=== PATIENT | male | born 1930 | race Caucasian/White ===

== ENCOUNTER 2016-12-19 13:35 | Inpatient (IN) | payer MEDICARE ==
[2016-12-19] VITALS (7 sets, daily range): BP systolic 92–119; BP diastolic 52–75; PULSE 53–92; RESP 16–18; O2SAT 96–99
[~2016-12-19] VITALS: Ht 175.3 cm; Wt 62.0 kg
[~2016-12-19 13:35] MED LIST: ACET1TAB42 PO; LISI40TA PO; METO50TA3 PO; NITR0.4T SL; PRAV40TA PO; SPIR25TA3 PO; TORS20TA3 PO; WARF5TAB7 PO
--- NOTE | 2016-12-19 13:50 | ED.REPORT ---
HPI-Trauma Multiple Date of Service Dec 19, 2016 ED Provider: Chin Joshi MD The patient is an 86 year old male with history of previous CVA, hyperlipidemia , atrial fibrillation on Coumadin, congestive heart failure, and aortic stenosis , who was brought to the emergency department by EMS after he had a ground level fall prior to arrival. The patient tripped on a chair, fell onto the carpeted floor, and injured his right hip. He did not hit his head or lose consciousness. He has not vomited since the fall and is acting normally. He denies any other injuries. Nursing Notes Stated Complaint: GLF Chief Complaint: Extremity Trauma Nursing Notes Reviewed: Yes Allergies: Coded Allergies: No Known Allergies (Verified Allergy, Unknown, 12/19/16) Scheduled Lisinopril (Lisinopril) 20 Mg Tablet 20 MG PO DAILY Metoprolol Tartrate (Metoprolol Tartrate) 50 Mg Tablet 50 MG PO DAILY Confirmed takes 1x/day per RX bottle Pravastatin (Pravastatin) 40 Mg Tablet 40 MG PO DAILY Takes in AM Spironolactone (Spironolactone) 25 Mg Tablet 12.5 MG PO DAILY 1/2 tablet daily Torsemide (Torsemide) 20 Mg Tablet 10 MG PO DAILY 1/2 tablet daily Warfarin Sodium (Warfarin Sodium) 5 Mg Tablet 5 MG PO DAILY 1 tablet daily Scheduled PRN Nitroglycerin SL (Nitrostat) 0.4 Mg Tab.subl 0.4 MG SL Q5MIN PRN PRN For Chest Pain IF SBP > 90 General Time Seen by Provider: 14:33 Chief Complaint Extremity pain/injury Hx Obtained From: Patient, Daughter, EMS Arrived By: Ambulance Onset Occurred: Just prior to arrival Symptom Duration: Since onset Progression Since Onset: Constant Caused by: Fall while (walking) Context: Occurred at: Home Location: : Hip right Quality: Painful Severity: Current: Moderate Severity: Maximum: Moderate Recent Healthcare: No recent doctor visit, No recent hospitalization Similar Sx Previous: No Past Medical History Past Medical History 1. 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 Received TPA and had resultant RUE paresis which improved. 2. 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 Hyperlipidemia 4. Atrial fibrillation 5. RBBB and Left anterior bifascicular block 6. Congestive heart failure 7. History of aortic stenosis Past Surgical History Left hip Replacement Surgery Reports: Appendectomy Smoking History Current Some Day Smoker Social History Alcohol Use: Denies alcohol use Drug Use: Denies drug use Other Social History: Good social support, Local resident Ambulatory Status Independent Review of Systems Musculoskeletal: Reports: Joint pain, Denies: Back pain, Neck pain Neurologic: Denies: Change LOC, Headache, Syncope Complete sys rev & neg: except as marked. Physical Exam Initial Vital Signs Vital Signs (First) Date Time Temp Pulse Resp B/P Pulse Ox O2 Delivery O2 Flow Rate FiO2 12/19/16 13:39 35.6 56 18 119/52 98 Room Air Initial VS: Reviewed ENT: Mucous membranes moist Extremities: Vascular intact, Neuro intact Skin: Warm, Dry, No cyanosis Psychiatric: Mood/affect normal, Behavior normal, Normal thought content General/Constitutional: Awake, Alert, Cooperative Head / Eyes: Atraumatic, Normocephalic, PERRL, EOMI, No periorbital swelling, Eyelids NL No deformity or signs of trauma. Neck: Atraumatic, Supple, Full range of motion, No swelling, Non-tender, No midline vertebral tend, No masses, No crepitus, No JVD, No tracheal deviation Respiratory / Chest: Atraumatic, Breath sounds NL, Breath sounds = bilat, No respiratory distress, No rales, No rhonchi, No wheezing, No stridor, No chest tenderness, No chest wall deformity, No crepitus Cardiovascular: Heart rate NL, No rubs, Peripheral circulation NL, Pulses = bilaterally Heart Rate / Rhythm: Positive: Irregular rhythm Heart Sounds / Murmur: Positive: Systolic murmur present.. (soft, grade II) Abdomen: Atraumatic, Soft, Non-tender, No guarding, No rebound, No distention Back: Atraumatic, Non-tender, No midline vertebral tend Neurologic: Oriented X3, Speech NL, No motor deficits, No sensory deficits, CN II - XII intact, Cerebellar NL, Memory NL Upper Extremity / MS: Full range of motion, Neurologic intact, Vascular intact Skin tear of his right elbow measuring at about 2x2 cm. Lower Extremity / Pelvis / MS: No deformity, Neurologic intact, Vascular intact Full active and passive range of motion of the left hip. LLE is atraumatic. He has full active and passive range of motion of his right hip. He has a little bit of tenderness with range of motion but is able to actively flex and extend his hip. He is able to bear weight but this is very painful and he has difficulty walking. Male Genitourinary: No meatal blood Interpretation & Diagnostics RIGHT HIP CT IMPRESSION: 1. Minimally displaced right femoral neck fracture. Dictated by: Wendy Sanchez M.D. on 12/19/2016 at 17:53 Lab Results Interpretation Test 12/19/16 14:50 12/19/16 17:37 Prothrombin Time 19.8sec (8.1-12.5) Prothromb Time International Ratio 1.83ratio Hold Urine Received (Received) X-Ray Interpretation Xray Interpretation: IMPRESSION: Prior left total hip arthroplasty, no acute disease on the right. Recommend MR scanning if hidden fracture is clinically suspected. Dictated by: Nash Trammell M.D. on 12/19/2016 at 15:18 X-Ray Ordered: Pelvis, Hip right Interpretation / Wet Read by: Interpret - Radiologist Re-Eval/Medical Decision Med Decision/Clinical Course The patient is an 86 year old male with history of previous CVA, hyperlipidemia , atrial fibrillation on Coumadin, congestive heart failure, and aortic stenosis , who was brought to the emergency department by EMS after he had a ground level fall prior to arrival. The patient tripped on a chair, fell onto the carpeted floor, and injured his right hip. He did not hit his head or lose consciousness. He has not vomited since the fall and is acting normally. He denies any other injuries. Here in the emergency department the patient was afebrile stable vital signs and examination as above. He is unable to bear weight on his right hip despite plain films that are read as negative by attending radiologist. His INR is currently 1.8. There is no evidence of neurovascular compromise in his affected extremity. Given the degree of the patient's pain and limited mobility I opted to obtain a CT scan of his hip which demonstrated a right femoral neck fracture. Above findings were discussed with orthopedic surgeon who agreed to consult for operative intervention. Coumadin will be held in anticipation of surgery. Patient was discussed with admitting hospitalist and transferred to the [facility] in stable condition. Source of Hx: Old records, EMS Re-Evaluation/Progress #1: Time of Eval: 16:05 Re-Evaluation/Progress Note: Significant pain with ambulation. Will order CT scan. Re-Evaluation/Progress #2: Time of Eval: 18:12 Re-Evaluation/Progress Note: Rechecked the patient. Discussed CT results, diagnosis, and plan for admission. All questions were addressed. Consultation #1: Referral / Consult Name: Neil Vasquez MD Consulted With: Orthopedic Call Returned at: 18:14 Hebrew Cantor: Agrees with eval, Agrees with plan Note: He will see the patient. Consultation #2: Consulted With: Hospitalist Requested Call at: 17:48 Hebrew Cantor: Will see patient, Agrees with eval, Agrees with plan, Accepts admit Counseled Regarding: Diagnosis, Lab results, Need for admission Discharge & Departure Impression: Primary Impression: Closed right hip fracture Encounter type: initial encounter Qualified Code: S72.001A - Fracture of unspecified part of neck of right femur, initial encounter for closed fracture Additional Impressions: Fall Encounter type: initial encounter Qualified Code: W19.XXXA - Unspecified fall, initial encounter Anticoagulated on Coumadin History of atrial fibrillation History of aortic stenosis Disposition: ADMITTED TO HOSPITAL Discharge Condition All VS Reviewed: Yes Condition: Stable Referrals: Phill Knutson MD (PCP) Scribe Attestation Portions of this note were transcribed by Sharyn Crisostomo. I, Dr. Joshi personally performed the history, physical exam and medical decision-making; I reviewed and confirmed the accuracy of the information in the transcribed note. Signed by: Chilango Massey, 12/19/2016 at 4175. copies to: Phill Knutson MD, Beck O MD Dec 19, 2016 13:50 Sharyn Crisostomo Dec 19, 2016 14:38
[2016-12-19 15:10] LABS: INR 1.83 ratio
--- NOTE | 2016-12-19 15:20 | DRSVH ---
PROCEDURE: X-RAY PELVIS W/LAT HIP (RT) ([id number]) INDICATIONS: fall, trauma TECHNIQUE: AP pelvis with lateral view(s) of the right hip. COMPARISON: None. FINDINGS: Bones: No fractures or dislocations. Pelvic ring appears intact. No suspicious bony lesions. Soft tissues: The visualized bowel gas pattern is normal. No suspicious soft tissue calcifications. IMPRESSION: Prior left total hip arthroplasty, no acute disease on the right. Recommend MR scanning if hidden fracture is clinically suspected. Dictated by: Nash Trammell M.D. on 12/19/2016 at 15:18 Approved by: Nash Trammell M.D. on 12/19/2016 at 15:19
--- NOTE | 2016-12-19 17:59 | DRSVH ---
PROCEDURE: CT HIP RIGHT W/O CONTRAST ([id number]) INDICATIONS: 86-year-old man with trauma and right hip pain. TECHNIQUE: Noncontrast 3 mm axial sections acquired through the bony pelvis. Additional 3 mm axial sections acq uired through the symptomatic hip joint, with coronal and sagittal reformats. COMPARISON: [facility], CR, XR PELVIS W LATERAL HIP RT, 12/19/2016, 14:19. FINDINGS: Image quality: Excellent. Bones: There is a subcapital right femoral neck fracture with minimal displacement. There is a left h ip prosthesis in anatomic alignment. Generalized osteopenia is noted. Soft tissues: Moderate atherosclerosis. There are colonic diverticula. No evidence for active diverti culitis. IMPRESSION: 1. Minimally displaced right femoral neck fracture. Dictated by: Wendy Sanchez M.D. on 12/19/2016 at 17:53 Approved by: Wendy Sanchez M.D. on 12/19/2016 at 17:58
[2016-12-19] MEDS ORDERED: LISI-567 PO (18:28)
--- NOTE | 2016-12-19 19:50 | PCM.CONORT ---
Subjective Date of Surgery: Dec 19, 2016 Surgeon Admitting Provider:Juanpablo Lang MD Attending Provider:Juanpablo Lang MD Primary Care Physician:Phill Knutson MD Other Provider:Madelin Brink Anesthesia Orthopedic surgeon: Neil Vasquez M.D. 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 He reports injuring his right hip when he caught his foot on a local restaurant table and unfortunately fell heavily onto his right side. There was no antecedent vasovagal symptoms, dizziness or syncopal episode. Patient could not weight bear through his painful right hip after the incident and was brought to [facility] emergency room for assessment. This was a closed, isolated neurovascularly intact injury. X-rays and a CT scan of the patient's right hip reveal a minimally comminuted and minimally displaced impacted right hip femoral neck fracture. The patient has been admitted to the Hospitalist service and orthopedic surgical consultation has been requested for definitive management of the patient's right hip fracture. Patient is status post left hip fracture with bipolar hemiarthroplasty in 2014. He is normally a community ambulator who does not normally use any ambulatory aids. The patient lives at home in the local community. He has no prior history of significant right hip symptomatology or trauma. Allergy Allergies: Coded Allergies: No Known Allergies (Verified Allergy, Unknown, 12/19/16) Medications Lisinopril (Lisinopril) 20 Mg Tablet 20 MG PO DAILY (Reported) Last Taken: 20 mg on 12/19/16 0900 Metoprolol Tartrate (Metoprolol Tartrate) 50 Mg Tablet 50 MG PO DAILY (Reported) Confirmed takes 1x/day per RX bottle Last Taken: 50 mg on 12/19/16 0900 Nitroglycerin SL (Nitrostat) 0.4 Mg Tab.subl 0.4 MG SL Q5MIN PRN PRN For Chest Pain IF SBP > 90 Prescribed by: MINESH GAMBOA MD Last Taken: 0.4 mg on Unknown Date & Time Pravastatin (Pravastatin) 40 Mg Tablet 40 MG PO DAILY (Reported) Takes in AM Last Taken: 40 mg on 12/19/16 0900 Spironolactone (Spironolactone) 25 Mg Tablet 12.5 MG PO DAILY (Reported) Last Taken: 12.5 mg on 12/19/16 0900 Torsemide (Torsemide) 20 Mg Tablet 10 MG PO DAILY (Reported) Last Taken: 10 mg on 12/19/16 0900 Warfarin Sodium (Warfarin Sodium) 5 Mg Tablet 5 MG PO DAILY (Reported) Last Taken: 5 mg on 12/19/16 0900 Discontinued Medications Acetaminophen/Codeine 300-30mg (Acetaminophen/Codeine 300-30mg) 1 Each Tablet 1 TABLET PO QID PRN PRN Pain (Reported) Lisinopril (Lisinopril) 40 Mg Tablet 40 MG PO DAILY Prescribed by: MINESH GAMBOA MD History History of ENT Problems?: Yes HEENT History: Positive for:: Cataracts (Beginging) Dysphagia (CVA 2012, TIA) Hx of Heart Problems?: Yes Cardiovascular History: Positive for:: Chest Pain Hypertension Irregular Heartbeat (Afib) Hx of Respiratory Problem?: No Hx Neurologic Problems?: No Neurological History: Positive for:: CVA (x 2) Hx of GI Problems?: No Hx of Problems?: No Genitourinary History: Denies:: HX of Hemodialysis Kidney Stones Urinary Tract Infection HX of Peritoneal Dialysis: No Male Hx: Denies:: Prostate Problems Scrotal Mass Testicular Surgery Hx Musculoskeletal Problems?: Yes Musculoskeletal History: Positive for:: Joint Replacement (Right partial hip replacement) Musculoskeletal Trauma (lawnmower accident at home) Hx of Psycho/Social Problems?: No Hx Surgeries?: Yes (Tonsillectomy;Right partial hip replacement) Hx Any Other Health Problems?: Yes Other History: Positive for:: Hospitalization (appendicitis;CVA) Denies:: Cancer Endocrine Disease Thyroid Disease History Blood Transfusions: Denies:: Blood Transfuse Reaction Blood Transfusions Hx Diabetes: No Hx Alcohol Use: No (Quit 33 years ago)Hx Substance Use: No Smoking Status: Current Some Day Smoker Have You Smoked inLast 12 mo: No Objective Exam Objective Imaging Patient Name: GANGA MONTILLA MR#: [id number] Location: [facility] [place] Ordering Phys: Chin Joshi MD Date of Service: 12/19/16 2759 PROCEDURE: X-RAY PELVIS W/LAT HIP (RT) ([id number]) INDICATIONS: fall, trauma TECHNIQUE: AP pelvis with lateral view(s) of the right hip. COMPARISON: None. FINDINGS: Bones: No fractures or dislocations. Pelvic ring appears intact. No suspicious bony lesions. Soft tissues: The visualized bowel gas pattern is normal. No suspicious soft tissue calcifications. IMPRESSION: Prior left total hip arthroplasty, no acute disease on the right. Recommend MR scanning if hidden fracture is clinically suspected. Dictated by: Nash Trammell M.D. on 12/19/2016 at 15:18 Approved by: Nash Trammell M.D. on 12/19/2016 at 15:19 Patient Name: GANGA MONTILLA MR#: [id number] Location: [facility] [place] Ordering Phys: Chin Joshi MD Date of Service: 12/19/16 1606 PROCEDURE: CT HIP RIGHT W/O CONTRAST ([id number]) INDICATIONS: 86-year-old man with trauma and right hip pain. TECHNIQUE: Noncontrast 3 mm axial sections acquired through the bony pelvis. Additional 3 mm axial sections acquired through the symptomatic hip joint, with coronal and sagittal reformats. COMPARISON: [facility], CR, XR PELVIS W LATERAL HIP RT, 12/19/2016, 14:19. FINDINGS: Image quality: Excellent. Bones: There is a subcapital right femoral neck fracture with minimal displacement. There is a left hip prosthesis in anatomic alignment. Generalized osteopenia is noted. Soft tissues: Moderate atherosclerosis. There are colonic diverticula. No evidence for active diverticulitis. IMPRESSION: 1. Minimally displaced right femoral neck fracture. Dictated by: Wendy Sanchez M.D. on 12/19/2016 at 17:53 Approved by: Wendy Sanchez M.D. on 12/19/2016 at 17:58 Vital Signs & I/O Vital Sign- Last 8 Hours Date Time Temp Pulse Resp B/P Pulse Ox O2 Delivery O2 Flow Rate FiO2 12/19/16 17:52 76 16 92/69 97 Room Air 12/19/16 16:59 36.1 53 16 109/68 99 Room Air 12/19/16 13:39 35.6 56 18 119/52 98 Room Air Lab & Micro Results Laboratory Tests Test 12/19/16 14:50 12/19/16 17:37 12/19/16 19:30 Prothrombin Time 19.8sec (8.1-12.5) Prothromb Time International Ratio 1.83ratio Hold Urine Received (Received) Review of Systems: Constitutional: Negative, except as otherwise mentioned in the history above. Ophthalmologic: Negative, except as otherwise mentioned in the history above. Cardiovascular: Negative, except as otherwise mentioned in the history above. Respiratory: Negative, except as otherwise mentioned in the history above. Gastrointestinal: Negative, except as otherwise mentioned in the history above. Genitourinary: Negative, except as otherwise mentioned in the history above. Musculoskeletal: Negative, except as otherwise mentioned in the history above. Neurological: Negative, except as otherwise mentioned in the history above. Psychiatric: Negative, except as otherwise mentioned in the history above. Hematologic/Lymphatic: Negative, except as otherwise mentioned in the history above. Allergic/Immunologic: Negative, except as otherwise mentioned in the history above. H&P Surgical Exam Exam General: Alert, Oriented X3, Cooperative, No Acute Distress Musculoskeletal: Right lower extremity: Skin is intact about the right hip with no significant swelling, ecchymosis, erythema or deformity. There is tenderness in the right groin with gentle rotation at the hip. No tenderness to palpation of the distal thigh, knee, leg, ankle or foot. There is no significant shortening or external rotation deformity of the lower limb. Neurovascular exam: Superficial peroneal, deep peroneal and saphenous sensation intact to light touch. Ankle dorsiflexion, extensor hallucis and ankle plantarflexion 4/5 motor power. Dorsalis pedis pulse is palpable. H&P Preop Plan Impression Right hip minimally displaced femoral neck fracture and elderly community ambulator after ground-level fall 12/19/2016. Anticoagulated patient with INR at 1.8. Problems: Risks & Benefits * We have reviewed the risks and benefits as well as the alternatives to surgery. All questions were answered to the patient's satisfaction and a counseling note to that effect. The patient has provided informed consent. * I have counseled the patient regarding the deleterious effects that smoking during the perioperative period can have upon wound healing, infection rates, and the overall rate of complications. Plan I have reviewed the diagnosis and findings with the patient and his daughter at length today. I would recommend that we proceed to the OR as soon as the patient INR can be reversed to at least 1.5 or lower and he is otherwise medically optimized for right hip fracture in situ cannulated pinning. We appreciate the Hospitalist service assistance in reversing the patient's anticoagulation status as soon as possible and clearing him for upcoming hip surgery.We reviewed the potential risks and benefits of surgery including, but not limited to, discussions involving infection, bleeding, neurovascular injury , stiffness, weakness, hypersensitivity and reflex sympathetic dystrophy, fracture malunion, fracture nonunion, femoral head avascular necrosis, posttraumatic arthritis, hardware pain with need for removal and need for further reconstructive surgery including conversion to hip replacement. We also discussed general medical complications including, but not limited to, stroke, myocardial infarction, cardiorespiratory arrest, generalized infection or sepsis, deep vein thrombosis and pulmonary embolism and exacerbation of pre- existing medical comorbidities. Postoperatively, the patient will likely benefit from transfer to a group home facility to continue his hip fracture rehabilitation after he is medically and surgically stable. copies to: Phill Knutson MD; Neil Vasquez MD, Michael G.E MD Dec 19, 2016 19:50
[2016-12-19] MEDS ORDERED: Alum-Mag Hydrox-Simeth 30 mL Suspension PO PRN (19:55)
[2016-12-19] MEDS ORDERED: Ondansetron 2 mg/mL 2 mL Inj IVPUSH PRN (19:55)
--- NOTE | 2016-12-19 20:41 | NUR ---
Admit Note Pt. arrived on floor around 2124. Pt. was alert and orientedx3. Pt. has mumbled speech which is baseline from previous stroke. Pt. rates pain 6/10. Pt.'s IV is patent and intact. Will continue to monitor.
[2016-12-19 21:10] LABS: APPEARANCE,URINE CLEAR (CLEAR,HAZY); COLOR,URINE YELLOW (YELLOW); OCCULT BLOOD,URINE NEGATIVE (NEGATIVE); PH,URINE 6.5 (5.0-8.0); UROBILINOGEN,URINE NORMAL (NORMAL)
--- NOTE | 2016-12-19 23:11 | PCM.HPMED ---
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 Patient denied any chest pain, palpitation, lightheadedness prior to the event. Fall was a ground-level. CT scan of the emergency room show a minimally displaced right femoral neck fracture. Orthopedist was consulted and patient is being arranged for the OR within the next 24 -48 hours. Patient is on Coumadin for atrial fibrillation and is ionized 1.8 today. Ideally surgery would like INR to be at least 1.5 prior to intervention. Review of Systems: A comprehensive review of system x 12 points is negative except for what is described above and history of present illness Allergies Coded Allergies: No Known Allergies (Verified Allergy, Unknown, 12/19/16) Home Medications Lisinopril (Lisinopril) 20 Mg Tablet 20 MG PO DAILY Metoprolol Tartrate (Metoprolol Tartrate) 50 Mg Tablet 50 MG PO DAILY Confirmed takes 1x/day per RX bottle Pravastatin (Pravastatin) 40 Mg Tablet 40 MG PO DAILY Takes in AM Spironolactone (Spironolactone) 25 Mg Tablet 12.5 MG PO DAILY 1/2 tablet daily Torsemide (Torsemide) 20 Mg Tablet 10 MG PO DAILY 1/2 tablet daily Warfarin Sodium (Warfarin Sodium) 5 Mg Tablet 5 MG PO DAILY 1 tablet daily Scheduled PRN Nitroglycerin SL (Nitrostat) 0.4 Mg Tab.subl 0.4 MG SL Q5MIN PRN PRN For Chest Pain IF SBP > 90 PMH 1. 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 Received TPA and had resultant RUE paresis which improved. 2. 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 Hyperlipidemia 4. Atrial fibrillation 5. RBBB and Left anterior bifascicular block 6. Congestive heart failure 7. History of aortic stenosi Surgical History Left hip Replacement Surgery Reports: Appendectomy Family History Family history is reviewed and is noncontributory to the present illness Social History Hx Alcohol Use: Yes (Quit drinking 33 years ago) Hx Substance Use: No Hx Tobacco Use: No Smoking Status: Current Some Day Smoker Exam Vital Signs Vital Sign - Last Date Time Temp Pulse Resp B/P Pulse Ox O2 Delivery O2 Flow Rate FiO2 12/19/16 20:38 67 16 98/58 96 Room Air 12/19/16 16:59 36.1 Exam General/Constitutional: Well-nourished male, Awake, Alert, Cooperative HEENT: Normocephalic and atraumatic. JACK, sclerae anicteric Neck: Supple, no cervical lymphadenopathy, Full range of motion, , No midline vertebral tenderness Chest: No respiratory distress, No rales, No rhonchi, No wheezing, No stridor , No chest tenderness, No chest wall deformity, No crepitus Lungs : Clear bilaterally, no crackle, no wheezing Cardiovascular: S1S2, irregular. No gallop, no murmur Abdomen: Atraumatic, Soft, Non-tender, No guarding, No rebound, No distention Back: Atraumatic, Non-tender, No midline vertebral tenderness Neurologic: Oriented X3, No sensory deficits, CN II - XII intact Upper Extremity / MS: Full range of motion, Neurologic intact, Vascular intact Extremities: Vascular intact, Neuro intact. Right hip with no deformity. Skin: Warm, Dry, No cyanosis, no rash Lab and Diagnostics Labs INR: 1.8 CBC and BMP pending X-Rays, CTs and MRIs Keep CT scan reviewed and showed : Minimally displaced right femoral neck fracture Assessment & Plan 1. Femoral neck fracture 2. S/p fall. NPO after midnight . IVF: NS @ 75 ml/hr . low dose of vitamin k ( 2.5 mg) . Repeat INR in AM. Morphine sulfate for pain . Orthopedist will take pt to OR possible tomorrow Home medications reviewed and reconciled . Moderate risk for general anesthesia given advanced age. SCD for DVT prophylaxis . Start Lovenox for DVT prophylaxis postsurgically and Resume Coumadin. Chronic medical issues 1. 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 Received TPA and had resultant RUE paresis which improved. 2. 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 Hyperlipidemia 4. Atrial fibrillation 5. RBBB and Left anterior bifascicular block 6. Congestive heart failure 7. History of aortic stenosis Hemodynamically and clinically stable. Plan of care as above. Management per orthopedist Pain Evaluation: Adequate Pain Control VTE Prophylaxis: SCDs Time spent 75 minutes Juanpablo Lang MD Dec 19, 2016 23:11
[2016-12-19] MEDS: Lactated Ringer's 1,000 ML IV SCH (23:42)
[2016-12-19] MEDS ORDERED: Phytonadione (Adult) 2.5 MG in Dextrose 5%-Pha MIX 50 ML IV ONE (23:45)
[2016-12-20] VITALS (19 sets, daily range): BP systolic 103–137; BP diastolic 56–82; PULSE 55–73; RESP 9–18; O2SAT 94–100
[2016-12-20 06:20] LABS: Mean Corpuscular Hemoglobin 26.9 pg (27.0-35.0); Mean Corpuscular Volume 83.7 fL (81-100)
[2016-12-20 06:27] LABS: INR 1.96 ratio
--- NOTE | 2016-12-20 08:55 | PCM.PNORTH ---
Subjective Date of Service: Dec 20, 2016 Visit Information: Reason for Visit Right Hip Fracture Surgery/Surgery Date Post-Op Day # Date of Admission: Dec 19, 2016 at 18:22 Hospital Day # Subjective Found patient awake and alert and lying in bed with right knee elevated and foot close to right hip. Patient complains of no pain at this time. When asked if this was a comfortable position patient assured me that it did not hurt and then promptly lowered his leg to a horizontal position without significant discomfort. Advised patient that we are working on reducing his INR so that he may be taken to the operating room today for repair of his hip. Postop General: No Complaints, No Shortness of Breath, No Chest Pain Objective Exam Objective Orientation: Alert and communicative. Dressing: None Wound: None Compartments: Calf and thigh are soft and nontender Mobility/sensation: Total and sensation are intact to right lower extremity distally JENNIFER hose: None Dukes: None Gait: Strict nonweightbearing at this time. Vital Signs and I/O Vital Sign - Last Date Time Temp Pulse Resp B/P Pulse Ox O2 Delivery O2 Flow Rate FiO2 12/20/16 05:27 37.0 57 16 116/70 96 Room Air Intake and Output 12/19/16 12/19/16 12/20/16 Cumulative From/Thru 15:00 23:00 07:00 12/19/16 13:39 - 12/20/16 06:00 Intake Total 0 ml 0 ml Output Total 555 ml 555 ml Balance -555 ml -555 ml Intake Oral 0 ml 0 ml Output Urine Total 555 ml 555 ml # Bowel Movements 0 0 Lab & Micro Results Laboratory Tests Test 12/19/16 14:50 12/19/16 17:37 12/19/16 19:30 12/20/16 04:49 Prothrombin Time 19.8sec (8.1-12.5) Prothromb Time International Ratio 1.83ratio Urine Color Yellow (YELLOW) Urine Appearance Clear (CLEAR,HAZY) Urine pH 6.5 (5.0-8.0) Urine Specific [place] 1.010 (1.003-1.035) Urine Protein Negativemg/dL (NEG,TRACE) Urine Glucose (UA) Negativemg/dL (NEGATIVE) Urine Ketones Negativemg/dL (NEGATIVE) Urine Occult Blood Negative (NEGATIVE) Urine Nitrite Negative (NEGATIVE) Urine Bilirubin Negative (NEGATIVE) Urine Urobilinogen Normalmg/dL (NORMAL) Urine Leukocyte Esterase Negative (NEGATIVE) Urine RBC 0-2/hpf (0-2) Urine WBC 0-5/hpf (0-5) Urine Epithelial Cells Few/hpf (NONE-MOD) Urine Crystals None seen (NONE SEEN) Urine Bacteria None/hpf (NONE-FEW) Urine Hyaline Casts None/lpf (NONE) Urine Granular Casts None seen (NONE SEEN) Urine Waxy Casts None seen (NONE SEEN) Urine Red Blood Cell Casts None seen (NONE SEEN) Urine White Blood Cell Casts None seen (NONE SEEN) Urine Mucus None seen (None Seen) Urine Trichomonas None seen (NONE SEEN) Urine Yeast None (NONE SEEN) Urinalysis Comment None Urine Culture Reflexed Not indicated Hold Urine Received (Received) Received (Received) Hold Purple Top Tube Received (Received) Hold [place] Top Tube Received (Received) Test 12/20/16 06:00 White Blood Count 9.1th/mm3 (3.8-10.1) Red Blood Count 4.54mil/mm3 (4.40-5.80) Hemoglobin 12.2g/dL (13.8-17.2) Hematocrit 38.0% (41.0-50.0) Mean Corpuscular Volume 83.7fL (81-100) Mean Corpuscular Hemoglobin 26.9pg (27.0-35.0) Mean Corpuscular Hemoglobin Concent 32.1% (32.0-37.0) Red Cell Distribution Width 20.2% (12.3-15.4) Platelet Count 264bil/L (150-400) Prothrombin Time 21.3sec (8.1-12.5) Prothromb Time International Ratio 1.96ratio Sodium Level 137mEq/L (134-144) Potassium Level 4.8mEq/L (3.5-5.2) Chloride Level 99mEq/L (97-108) Carbon Dioxide Level 27mmol/L (18-29) Blood Urea Nitrogen 28mg/dL (8-27) Creatinine 1.18mg/dL (0.76-1.27) Estimat Glomerular Filtration Rate 63mL/min (>59) Glucose Level 101mg/dL (60-99) Calcium Level 8.4mg/dL (8.5-10.1) Result Diagram: 12/20/1659912/20/16599 General Appearance: Alert, Cooperative, No Acute Distress Extremities: No Compartment Syndrom Noted, Thigh & Calf Soft/Nontender Postop Sensory Motor: Distal Motor Intact, Movement in Toes, Distal Sensation Intact Catheters: None Assessment & Plan Impression Patient is a 86-year-old male who was admitted on 12/19/2016 after suffering a ground-level fall with result right hip fracture. Patient was counseled by Dr. Neil Vasquez and the plan is to take patient to the OR today on 12/20/2016 after patient's INR is reduced to subtherapeutic level prior to surgery. Problems: Plan Postadmit day # 1 from a right hip fracture and pending a right hip pinning planned for 12/20/[address] Neil Vasquez. Weight bearing status: Strict nonweightbearing bilaterally. Mobility aid: Bed rest only. Immobilization: None Precautions: Physical therapy: None Pain control: IV pain medication as needed DVT prophylaxis: Dukes: None Nursing communication: Nursing please keep patient nothing by mouth today on in anticipation of OR on 12/20/2016 at 7 PM after INR is reduced 2-week follow-up: TBD 6-week follow-up: TBD Plan: Ideally patient will be taken to the operating room today on 12/20/2016 7 PM after his INR is reduced below therapeutic levels for a right hip pinning to be performed by Dr. Neil Vasquez. Orthopedics thanks hospitalist service for their help in the medical management of this patient. Discharge instructions: TBD Discharge plan: Patient will likely be discharged on or before postop day #3 to custodial facility. VTE Prophylaxis: SCDOscar Mcdonald PA-C Dec 20, 2016 08:55
--- NOTE | 2016-12-20 11:25 | CONS ---
[address] [address] CONSULTATION REPORT PATIENT: GANGA MONTILLA : 1930 MR#: [id number] ADMIT: 12/19/2016 JOB ID: [id number] DATE OF SERVICE: 12/20/2016 CARDIOLOGY CONSULTATION: REASON FOR CONSULT: Hospitalist team asked me to see this patient regarding preop clearance for right hip surgery. CHIEF COMPLAINT: Fall and right hip fracture. PRESENT HISTORY: This 86-year-old pleasant male who has a progressively worsening aortic stenosis now about severe aortic stenosis based on echocardiogram done in May 2016 with LV ejection fraction 40%-45%, peak aortic valve velocity 3.1 m/sec, mean gradient 24.3 mmHg with aortic valve area about 1 cm2, mild to moderate aortic regurgitation, mild to moderately reduced right ventricular function, possibility of cardiac amyloidosis with significant concentric LVH, status post right and left heart catheterization in May 2016. At that time, he did not have any significant coronary artery disease, pulmonary artery systolic pressure about 49 mmHg, LVEDP was about 25 mmHg, cardiac index 2.23 L/minute per m2, who is a patient of Dr. Parham with underlying history of chronic atrial fibrillation, with right bundle branch block, left anterior fascicular block, on chronic warfarin therapy, history of CVA in the past without any critical carotid artery disease, history of psoriasis, psoriatic arthritis, essential hypertension, hyperlipidemia, got admitted because of above-mentioned chief complaint. According to the patient, he lives by himself. He had a fall at a restaurant yesterday. He denies any preceding chest pain or palpitations, lightheadedness or shortness of breath or PND, orthopnea. He denies any syncope. According to him, it was an accident. The patient developed right femoral neck fracture. He is being planned to have surgery. Cardiology consult was sought. Based on echocardiogram, there is a possibility of underlying cardiac amyloidosis. The patient has a strain echo in September with apical sparing and suggestive of possibility of cardiac amyloidosis. The patient has appointment at [facility] to have cardiac biopsy in December. Bone marrow did not show evidence of amyloidosis. He has been seen by Dr. Osei from Oncology. According to him, he was able to take care of himself at home and was able to do day to day activities without any exertional chest pain or worsening shortness of breath or dizziness or syncope or palpitation. He denies any PND or orthopnea. He is compliant with his medications. No fever, cough, expectoration or active bleeding. PAST MEDICAL HISTORY: Progressively worsening aortic stenosis with at least [id number] aortic stenosis based on his echocardiogram done in May 2016, with underlying LV dysfunction which is nonischemic status post left heart catheterization in May 2016, without any significant coronary artery disease at that time, with underlying chronic atrial fibrillation with right bundle branch block, left anterior fascicular block with possibility of cardiac amyloidosis, moderate pulmonary hypertension, moderate TR, mild to moderate AR, moderate mitral regurgitation, ascending aorta diameter about 4.8 cm, essential hypertension, hyperlipidemia, and other problems as stated above. PAST SURGICAL HISTORY: As stated above. ALLERGIES: No known allergies. HOME MEDICATIONS: 1. Lisinopril 20 mg daily. 2. Metoprolol tartrate 50 mg daily. 3. Pravastatin 40 mg daily. 4. Spironolactone 12.5 mg daily. 5. Torsemide 10 mg daily. 6. Warfarin 5 mg daily. SOCIAL HISTORY: Denies any alcohol abuse. Smoking history: He is a smoker. FAMILY HISTORY: Noncontributory. REVIEW OF SYSTEMS: Ten point review of systems were obtained and they are negative except as stated above. PHYSICAL EXAMINATION: Blood pressure 109/56, heart rate 66, irregular, respiratory rate 16, oxygen saturation room air 95%. HEENT: No significant anemia, jaundice. Neck: No apparent JVD. Chest: At present no obvious crepitation or rhonchi. CVS: S1 variable, P2 clinically does not appear to be loud. No S3. No S4. The patient has grade 2/6 ejection systolic murmur at the base as well as grade 3/6 almost pansystolic murmur near the apex and tricuspid area. Abdomen: I do not appreciate obvious hepatosplenomegaly. DRIVER TRAINEE: At present, the patient is alert, oriented to time, place and person. Extremities: No pedal edema. Vascular: No evidence of critical limb ischemia. EKG is not done in this admission. LABORATORIES: WBC 9.1, hemoglobin 12.2, platelets 264. Sodium 137, potassium 4.8, BUN 28, creatinine 1.18. INR 1.96. Hip CT revealed minimally displaced right femoral neck fracture. 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 This is an important and urgent surgery. The patient had left hip surgery in July 2015 as well. Clinically, he is not in gross congestive heart failure. He appears compensated. At present, he is not having any unstable cardiovascular symptoms. Denies any dizziness, chest pain or shortness of breath or PND, orthopnea. His underlying medical problems put him on high risk for perioperative cardiovascular complications including congestive heart failure, tachycardia, , etc. Discussed my concern with the patient as well as I spoke to his daughter, Della, at phone #[phone]. They understand. They are willing to undergo this surgery. Hence, as surgery is important, the patient may have this surgery. We will make the following recommendations. We will recommend close hemodynamic monitoring. Avoid major fluid shift. Consider pulmonary embolism prophylaxis. Once surgery is done, and he is hemodynamically stable without any active bleeding restart warfarin and his cardiac medications. Cardiology service will be available. Feel free to call us if needs any assistance. Thanks for the cardiology consult.
[2016-12-20] MEDS ORDERED: fentaNYL-PF 50 mCg/mL 2 mL Inj ONE (12:24)
[2016-12-20] MEDS ORDERED: Dexamethasone 4 mg/mL Inj ONE (12:24)
[2016-12-20] MEDS: Lactated Ringer's 1,000 ML IV SCH ×2 (12:27→20:38)
[2016-12-20 12:55] LABS: INR 1.69 ratio
--- NOTE | 2016-12-20 13:00 | NUR ---
FFP/MD NOTIFICATION INR-1.96 this morning. Blood consent form was signed by the patient. 1 unit of FFP transfused without any adverse reactions noted. Patient denies chest pain/nausea/SOB/itching. Lab 1 hour post transfusion was 1.69. Dr. Plata made aware. New order to infuse 1 more unit of FFP. Care continues.
[2016-12-20] MEDS ORDERED: Lactated Ringer's 1,000 ML IV ONE (15:43)
[2016-12-20] MEDS ORDERED: Bupivacaine-MPF 0.5% W/EPI 30 mL Inj INFILTRATE ONE (15:43)
--- NOTE | 2016-12-20 15:45 | NUR ---
FFP/TRANSFER TO THE OR 2nd unit of FFP transfused without any adverse reactions noted. Repeat INR at 1600. Patient was saline locked. SCD's are on. Report given to DYLLAN Rondon. INR to be repeated in the OR. Transported to the OR via a hospital bed. Addendum: 12/20/16 at 1734 by TRACY SANTIAGO RN FAMILY NOTIFICATION Daughter was made aware RE: Patient transfer to the OR.
--- NOTE | 2016-12-20 15:45 | NUR ---
SURGERY Patient saline locked and off floor for surgery.
[2016-12-20 16:29] LABS: INR 1.49 ratio
--- NOTE | 2016-12-20 16:55 | PCM.PNMED ---
Subjective Date of Service Dec 20, 2016 Subjective denies any new issues/complaints. no CP, SOB, n/v. Exam Vital Signs Vital Sign - Last Date Time Temp Pulse Resp B/P Pulse Ox O2 Delivery O2 Flow Rate FiO2 12/20/16 13:48 94 Room Air 12/20/16 13:48 36.5 60 16 108/69 Intake and Output 12/19/16 12/19/16 12/20/16 Cumulative From/Thru 15:00 23:00 07:00 12/19/16 13:39 - 12/20/16 06:00 Intake Total 0 ml 0 ml Output Total 555 ml 555 ml Balance -555 ml -555 ml Intake Oral 0 ml 0 ml Output Urine Total 555 ml 555 ml # Bowel Movements 0 0 General: Alert, Cooperative, No Acute Distress Head: Normal Eyes: Scleral Anicteric Nose: Mucous Membr Moist/[place] Mouth: Mucous Membr Moist/[place] Chest & Lungs: Chest Wall Normal, Clear to auscultation & percussion Cardiovascular: Other (irreg/irreg) Pulses: NL carotid, radial, femoral, DP, PT Abdomen: Non-tender, Non-distended, Normoactive bowel tones, Soft Extremities: No cyanosis/clubbing/edma bilat Neurological: Other (slurred speech chronic per patient. otherwise no acute focal deficit) Additional Information: Psych: appropriate IVs and Medications Medications Reviewed: Medications were reviewed in detail Lab and Diagnostics Result Diagram: 12/20/16 0600 12/20/16 0600 X-Rays, CTs and MRIs Keep CT scan reviewed and showed : Minimally displaced right femoral neck fracture Assessment & Plan 86 years old male with past medical history of tarry tract is status post left hip replacement, hypertension, hyperlipidemia, CVA with expressive aphasia, atrial ablation on Coumadin who presented at the hospital complaining about right hip pain after he sustained an accidental fall at a restaurant. # Acute Femoral neck fracture after ground level fall. poa - appreciate ortho consult. 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 stable at this time - I consulted cardiology today and appreciate input and recommendations - pt cleared for surgery per cardiology recs - c/w home meds # History of Afib. 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 Received TPA at that time. - currently stable. # Most recent echo on 09/2016 "suggestive of cardiac amyloid." - Followed by oncology with recent BM biopsy to r/o MM. Not sure about the results. - will defer further f/u to outpatient setting at this time. Dispo: likely SNF in 2-3 days post-op VTE Prophylaxis: SCDs VTE Mechanical Devices: Intermittant Pneumatic CD Time spent 35 min Joe Atkins Dec 20, 2016 16:55
--- NOTE | 2016-12-20 17:05 | NUR ---
Social Work Initial Assessment: SW met with patient and daughter Antonella, at bedside to discuss discharge plan. Patient is a 86 year old male admitted on 12/19/16 for right hip fracture. patient payer as Medicare. 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 Patient PCp as MD Knutson. Patient resides home in [facility] alone. Patient resides at [facility]. Patient has no HHC history. Patient has SNF history at [facility] in past 2 years ago. Patient has a walker, cane, and 02 at night via [employer]. Patient has AD and daughter states she to provide hospital with copy. Patient to go to OR today. SW discussed discharge options of HHC and SNF with patient at bedside. Patient states not wanting to attend SNF upon discharge if recommended. SW advised patient and daughter that continued follow up to take place tomorrow following surgery to determine definitive discharge needs. SW to follow. PLAN: Home alone. Surgery today. SW to follow up following surgery for discharge needs Connor HIGGINS Addendum: 12/20/16 at 1712 by VALERIA COREY Amended: Links added.
[2016-12-20] MEDS ORDERED: Lactated Ringer's 500 ML IV PRN (17:52)
[2016-12-20] MEDS ORDERED: Lactated Ringer's 1,000 ML IV SCH (17:52)
--- NOTE | 2016-12-20 17:52 | PCM.HPANE ---
Patient Data Date of Service: Dec 20, 2016 Surgeon Admitting Provider:Juanpablo Lang MD Attending Provider:Juanpablo Lang MD Primary Care Physician:Phill Knutson MD Other Provider:Madelin Brink Anesthesia Reason for Visit Right Hip Fracture Ht/WT & BMI Height (Feet): 5 Height (Inches): 9.00 Weight (Kilograms): 62.000 Body Mass Index 20.24 Allergies Coded Allergies: No Known Allergies (Verified Allergy, Unknown, 12/19/16) Past Anesthesia History Anesthesia History: Denies:: Anesthesia Reactions Diabetes History Hx Diabetes?: No MRSA MRSA: No Medications Blood Thinner: Coumadin (INR <1.7 following FFP) Home Meds Incl Beta Piyush: Yes Active Scripts Nitroglycerin SL (Nitrostat)0.4 Mg Tab.subl0.4 Mg SL Q5MIN PRN For Chest Pain IF SBP > 90 #25 TABLET Ref 0 Prov:Shyla Clarke MD 06/26/16 Reported Medications Lisinopril 20 Mg Vysidn52 Mg PO DAILY 30 Days Ref 0 12/19/16 Torsemide 20 Mg Yiuvpi90 Mg PO DAILY Ref 0 12/04/16 Spironolactone 25 Mg Etcuim11.5 Mg PO DAILY Ref 0 12/04/16 Metoprolol Tartrate 50 Mg Uvybzb18 Mg PO DAILY 30 Days Ref 0 Confirmed takes 1x/day per RX bottle 11/08/16 Warfarin Sodium 5 Mg Tablet5 Mg PO DAILY 30 Days Ref 0 06/22/16 Pravastatin 40 Mg Rgilwr26 Mg PO DAILY Ref 0 Takes in AM 07/28/15 Discontinued Reported Medications Acetaminophen/Codeine 300-30mg 1 Each Tablet1 Tablet PO QID PRN Pain Ref 0 06/22/16 Discontinued Scripts Lisinopril 40 Mg Isrqgb45 Mg PO DAILY #30 TABLET Ref 0 Prov:Shyla Clarke MD 06/26/16 History History of ENT Problems?: No HEENT History: Positive for:: Cataracts (Beginging) Dysphagia (CVA 2012, TIA) Hx of Heart Problems?: Yes Cardiovascular History: Positive for:: Chest Pain Congestive Heart Failure (hx of) Heart Murmur Hypertension Irregular Heartbeat (A-Fib) Hx of Respiratory Problem?: No Hx Neurologic Problems?: Yes Neurological History: Positive for:: CVA (two strokes mumbled speech) Dizziness Hx of GI Problems?: No Hx of Problems?: No Genitourinary History: Denies:: HX of Hemodialysis Kidney Stones Urinary Tract Infection HX of Peritoneal Dialysis: No Male Hx: Denies:: Prostate Problems Scrotal Mass Testicular Surgery Hx Musculoskeletal Problems?: Yes Musculoskeletal History: Positive for:: Joint Replacement (Left partial hip replacement) Musculoskeletal Trauma (lawnmower accident at home) Hx of Psycho/Social Problems?: No Hx Surgeries?: Yes (Left partial replacement hip (2015), cardiac cath (2016)) Hx Any Other Health Problems?: Yes Other History: Positive for:: Hospitalization (Broke his left hip) Denies:: Cancer Endocrine Disease Thyroid Disease History Blood Transfusions: Positive for:: Accept Blood Products? Denies:: Blood Transfuse Reaction Blood Transfusions Hx Diabetes: No Hx Alcohol Use: Yes (Quit drinking 33 years ago)Hx Substance Use: No Smoking Status: Current Some Day Smoker Have You Smoked inLast 12 mo: No Stop/Bang Treated for Sleep Apnea?: No Do You Have a CPAP Machine?: No S-Snoring: Do You Snore Loudly: No T-Tired: feel tired, fatigued: Yes O-Obsered: Observed not breath: No P-Blood Pressure: treated: Yes B- Body Mass Index > 35 kg/m2: No A- Age over 50: Yes N- Neck Large Circumference: No G- Gender Male: Yes VICENTA Total Score: 3 VICENTA Risk Assessment: High Risk, =/>3 Yes Risk Assessment Category Category 1A: Patient has history of documented sleep apnea, and HAS NOT received any narcotic, sedative or anesthesia administration during this stay. Category 1B: Patient has history of documented sleep apnea, and HAS received any narcotic , sedative or anesthesia administration during this stay Category 2: Patient has SUSPECTED Obstructive Sleep Apnea, and HAS received any narcotic , sedative or anesthesia administration during this stay. Category 3: Patient has SUSPECTED Obstructive Sleep Apnea and HAS NOT received narcotic, sedative or anesthesia administration during this stay. Category 4: Outpatient in Procedural Areas with known sleep apnea or who screen positive for High Risk via the STOP/BANG questionnaire. Exam Exam Vital Signs Vital Signs Date Time Temp Pulse Resp B/P Pulse Ox O2 Delivery O2 Flow Rate FiO2 12/20/16 14:45 36.7 68 18 117/68 12/20/16 13:48 94 Room Air 12/20/16 13:48 36.5 60 16 108/69 12/20/16 13:33 36.8 55 16 109/61 12/20/16 13:19 36.6 64 16 112/72 95 Room Air 12/20/16 11:30 36.4 73 18 117/63 12/20/16 10:16 37.1 66 16 109/56 12/20/16 10:16 95 Room Air 12/20/16 10:00 36.6 56 16 103/66 General Appearance: Alert, Oriented X3, Cooperative (expressive aphasia) HEENT/AIRWAY: MP 2 Lungs: Clear to Auscultation, Normal Air Movement Heart: Normal S1, Normal S2, Murmur (IV/ KEVIN from LUSB with bilateral carotid radiation.) Meds/Labs/Diagnostics Admission Meds Current Medications Metoprolol Tartrate 50 mg 50 mg DAILY PO Last administered on 12/20/16 09:09; Start 12/19/16 at 23:05 Lactated Ringer's 1,000 ml @ 75 mls/hr [id number] IV Last administered on 23:42; Start 12/19/16 at 23:07 Phytonadione/ Dextrose/Water (Vitamin K (Adult)/D5[facility] Pharm[facility] To Mix) 50.25 ml @ 100.5 mls/ hr ONCE ONCE IV Last administered on 12/20/16 00:58; Start 12/19 at 23:45; Stop 12/20/16 at 00:14; Status DC Bupivacaine HCl/ Epinephrine Bitart 30 ml 30 ml STK-MED ONCE INFILTRATE Last administered on 12/20/16 15:43; Start 12/20/16 at 15:43; Stop 12/20/16 at 15:45 ; Status DC Lactated Ringer's (Lr) 1,000 ml @ ud STK-MED ONCE IV Last administered on 12/20 15:43; Start 12/20/16 at 15:43; Stop 12/20/16 at 15:45; Status DC Labs Test 12/19/16 17:37 12/19/16 19:30 12/20/16 04:49 12/20/16 06:00 Urinalysis Comment None Hold Purple Top Tube Received (Received) Hold [place] Top Tube Received (Received) Hold Urine Received (Received) White Blood Count 9.1th/mm3 (3.8-10.1) Red Blood Count 4.54mil/mm3 (4.40-5.80) Hemoglobin 12.2g/dL (13.8-17.2) Hematocrit 38.0% (41.0-50.0) Mean Corpuscular Volume 83.7fL (81-100) Mean Corpuscular Hemoglobin 26.9pg (27.0-35.0) Mean Corpuscular Hemoglobin Concent 32.1% (32.0-37.0) Red Cell Distribution Width 20.2% (12.3-15.4) Platelet Count 264bil/L (150-400) Sodium Level 137mEq/L (134-144) Potassium Level 4.8mEq/L (3.5-5.2) Chloride Level 99mEq/L (97-108) Carbon Dioxide Level 27mmol/L (18-29) Blood Urea Nitrogen 28mg/dL (8-27) Creatinine 1.18mg/dL (0.76-1.27) Estimat Glomerular Filtration Rate 63mL/min (>59) Glucose Level 101mg/dL (60-99) Calcium Level 8.4mg/dL (8.5-10.1) Test 12/20/16 16:04 Prothrombin Time 16.1sec (8.1-12.5) Prothromb Time International Ratio 1.49ratio Plan Impression Patient chart reviewed, patient interviewed and anesthestic plan with risks, benefits, and alternatives discussed, and informed consent obtained. NPO Status: 07/27/2015 ASA Physical Status: ASA3 Plus Emergency Anesthetic Plan: GA Bene/Risks/Altern/Consents: Yes HP Complete Prior to Induction: Yes Jose Wise DO Dec 20, 2016 17:52
[2016-12-20] MEDS ORDERED: Dexamethasone 4 mg/mL Inj IVPUSH PRN (17:55)
[2016-12-20] MEDS ORDERED: HYDROmorphone 1 mg/mL Inj IVPUSH PRN (17:55)
[2016-12-20] MEDS ORDERED: EPHEDrine Sulfate 50 mg/mL Inj IVPUSH PRN (17:55)
[2016-12-20] MEDS ORDERED: Ondansetron 2 mg/mL 2 mL Inj IVPUSH PRN ×2 (17:55→18:20)
[2016-12-20] MEDS ORDERED: Phenylephrine 10,000 mCg/mL Inj IVPUSH PRN (17:55)
[2016-12-20] MEDS ORDERED: Labetalol 5 mg/mL 4 mL Inj IV PRN (17:55)
[2016-12-20] MEDS ORDERED: MetoCLOpramide 5 mg/mL 2 mL Inj IVPUSH PRN (17:55)
[2016-12-20] MEDS ORDERED: fentaNYL-PF 50 mCg/mL 2 mL Inj IVPUSH PRN (17:55)
[2016-12-20] MEDS ORDERED: Atropine 0.4 mg/mL Inj IVPUSH PRN (17:55)
[2016-12-20] MEDS ORDERED: Polyethylene Glycol (PEG) 17 Gm Powder PO PRN (18:20)
[2016-12-20] MEDS ORDERED: Sodium Biphos-Phos 133 mL Enema RECTAL PRN (18:20)
[2016-12-20] MEDS ORDERED: Magnesium Hydroxide 10 mL Oral Concentration PO PRN (18:20)
[2016-12-20] MEDS ORDERED: diphenhydrAMINE 25 mg Capsule PO PRN (18:20)
[2016-12-20] MEDS ORDERED: HYDROcodone-APAP 5-325 mg Tablet PO PRN (18:20)
[2016-12-20 18:22] LABS: APPEARANCE,URINE CLEAR (CLEAR,HAZY); COLOR,URINE YELLOW (YELLOW)
[2016-12-20 18:23] LABS: OCCULT BLOOD,URINE NEGATIVE (NEGATIVE); UROBILINOGEN,URINE NORMAL (NORMAL)
--- NOTE | 2016-12-20 18:33 | PCM.ORTHOB ---
Immediate Operative Note Date of Service: Dec 20, 2016 Pre Operative Diagnosis Right hip nondisplaced femoral neck fracture Post Operative Diagnosis Same Procedure Right hip in situ cannulated pinning Surgeon Surgeon: Neil Vasquez MD Assistants: None Findings Right hip mildly comminuted, minimally displaced right hip femoral neck fracture. Fracture satisfactorily stabilized in situ with 3 partially threaded Synthes 7.3 mm cannulated screws. Intraoperative fluoroscopic views confirm satisfactory reduction and fixation placed hardware without any intra-articular violation or further femoral neck fracture displacement. Grafts, Implants: Implants-See Implant Record Complications There were no periprocedural complications identified. Condition Stable Anesthetic Administered: GA Drains: None Catheters: None, Urethral 2 Way Dukes Output, Estimated Blood Loss: 10 Blood Admin during surgery: No Surgical Cast or Splint: None Surgical Specimen Removed: No Surgical Specimen sent to Path: No Post Operative Plan The patient will be mobilized as soon as possible. He will be restricted to touchdown weightbearing through the right lower extremity for the next 6 weeks postop. The patient may be restarted on his usual Coumadin postop day #1. He will remain on Lovenox 40 mg subcutaneous daily for DVT prophylaxis until his Coumadin and INR are therapeutic, then the Lovenox may be discontinued. The patient's right wound dry dressing may be changed postop day #2 and as needed thereafter until skin blair are removed. The patient may benefit from a short stay at a local retirement facility after he has reached medical and surgical stability at [facility]. The patient may have his right hip wound skin blair removed on or after postoperative day #12. The patient will be seen in outpatient follow-up when 2 weeks postop. X-rays of the patient 's right hip will be obtained at 6 weeks postop when I anticipate advancing his fracture rehabilitation and weightbearing status. Neil Vasquez MD Dec 20, 2016 18:33
--- NOTE | 2016-12-20 18:39 | PCM.ORTHOP ---
Orthopedic Operative Report Date of Service: Dec 20, 2016 Pre Operative Diagnosis Right hip nondisplaced femoral neck fracture Post Operative Diagnosis Same Procedure Right hip in situ cannulated pinning Surgeon Surgeon: Neil Vasquez MD Assistants: None Indication for Procedure The patient is a 86-year-old gentleman sustained a minimally displaced right hip femoral neck fracture in a ground-level fall at a restaurant 12/19/2016. Patient presents today for in situ cannulated pinning of his minimally displaced right hip femoral neck fracture. Findings Right hip mildly comminuted, minimally displaced right hip femoral neck fracture. Fracture satisfactorily stabilized in situ with 3 partially threaded Synthes 7.3 mm cannulated screws. Intraoperative fluoroscopic views confirm satisfactory reduction and fixation placed hardware without any intra-articular violation or further femoral neck fracture displacement. Details of Procedure The patient brought to the OR and given a general anesthetic. He is placed in a supine position on the fracture table and the right lower extremity was maintained in gentle in-line well-padded boot traction. The procedure was performed under intraoperative fluoroscopic guidance. The right hip and lower extremity received a trauma scrub and then were prepped and draped in usual sterile fashion. A 3 cm lateral longitudinal incision placed over the lateral hip at the level of the lesser trochanter. The incision was deepened through subcutaneous tissues and fascia génesis. A gapping gun guide sleeve which used to place 3 partially threaded guidewires through the lateral proximal femoral cortex at the intertrochanteric region proximal to the lesser trochanter. The guidewires were placed through the center of the femoral neck in a inverted triangular pattern, apex inferior. Guidewires were placed into the subchondral bone of the femoral head and measured. We then placed, over the guidewires, 3 x 16 mm partially-threaded cannulated Synthes 7.3 mm screws. Intraoperative fluoroscopic views confirm satisfactory reduction and fixation of the femoral neck fracture without any further displacement. There is no intra-articular violation from our placed hardware. The wound was thoroughly irrigated and closed. We used #1 Vicryl for repair of the fascial génesis. 2-0 Vicryl was used to close the subcutaneous tissues. [place] used to close the skin. The wound was infiltrated with 20 mL of 0.5% Marcaine with epinephrine. Wound was dressed with Xeroform and dry gauze dressings. The patient was gently transferred off the fracture table and onto his postoperative bed. The patient was taken back to PACU in stable satisfactory condition. There were no complications. The patient tolerated the procedure well. Grafts, Implants: Implants-See Implant Record Complications There were no periprocedural complications identified. Condition Stable Anesthetic Administered: GA Drains: None Catheters: None, Urethral 2 Way Dukes Output, Estimated Blood Loss: 10 Blood Admin during surgery: No Surgical Cast or Splint: None Surgical Specimen Removed: No Specimen sent to Pathology: No Post Operative Plan The patient will be mobilized as soon as possible. He will be restricted to touchdown weightbearing through the right lower extremity for the next 6 weeks postop. The patient may be restarted on his usual Coumadin postop day #1. He will remain on Lovenox 40 mg subcutaneous daily for DVT prophylaxis until his Coumadin and INR are therapeutic, then the Lovenox may be discontinued. The patient's right wound dry dressing may be changed postop day #2 and as needed thereafter until skin blair are removed. The patient may benefit from a short stay at a local [facility] facility after he has reached medical and surgical stability at [facility]. The patient may have his right hip wound skin blair removed on or after postoperative day #12. The patient will be seen in outpatient follow-up when 2 weeks postop. X-rays of the patient 's right hip will be obtained at 6 weeks postop when I anticipate advancing his fracture rehabilitation and weightbearing status. copies to: Phill Knutson MD; Neil Vasquez MD, Michael G.E MD Dec 20, 2016 18:39
--- NOTE | 2016-12-20 19:15 | DRSVH ---
PROCEDURE: X-RAY PELVIS W/LAT HIP (RT) ([id number]) INDICATIONS: status post right hip pinning TECHNIQUE: AP pelvis with lateral view(s) of the right hip(s). COMPARISON: [facility], , XR HIP 2VW RT, 12/20/2016, 17:00. FINDINGS: Left hip arthroplasty is present. There has been right femoral fixation with good alignment of fractu re fragments. Hardware is intact. IMPRESSION: Right femoral fixation with good anatomic alignment of fracture fragments. Dictated by: Laura Saravia M.D. on 12/20/2016 at 19:13 Approved by: Laura Saravia M.D. on 12/20/2016 at 19:14
--- NOTE | 2016-12-20 19:30 | NUR ---
7-7am shift post op from pacu refused vital signs RN is aware. Addendum: 12/20/16 at 2028 by KOURTNEY CASTANEDA CNA Amended: Links added.
--- NOTE | 2016-12-20 20:36 | NUR ---
Post op Pt. arrived on floor at 1940. Pt. was not oriented to place and time. Family be bedside. Pt's IV and perez catheter intact and patent. Will continue to monitor.
[2016-12-20] MEDS: CeFAZolin Inj 2 GM in Dextrose 5% 50 ML IV SCH (20:43)
[2016-12-20] MEDS: Senna-Docusate 8.6-50 mg Tablet PO SCH (20:47)
[2016-12-20] MEDS: Sodium Chloride LOK Flush 10 mL Syringe IV SCH (23:55)
[2016-12-21] VITALS (7 sets, daily range): BP systolic 76–137; BP diastolic 46–86; PULSE 50–92; RESP 16–18; O2SAT 95–100
[2016-12-21] MEDS: CeFAZolin Inj 2 GM in Dextrose 5% 50 ML IV SCH ×2 (04:27→12:47)
[2016-12-21 06:44] LABS: BASOPHILS % (AUTO) 0.1 % (0-3); EOSINOPHILS % (AUTO) 0.1 % (0-5); Mean Corpuscular Hemoglobin 27.1 pg (27.0-35.0); Mean Corpuscular Volume 84.4 fL (81-100); NEUTROPHILS % (AUTO) 89.4 % (40-74); Platelet Count 253 bil/L (150-400)
[2016-12-21] MEDS: Lactated Ringer's 1,000 ML IV SCH ×2 (06:49→12:49)
--- NOTE | 2016-12-21 06:58 | PCM.ANEP1 ---
Post Anesthesia Phase 1 PACU Phase 1 Assessment Date of Service: Dec 20, 2016 Vital Signs Vital Signs Date Time Temp Pulse Resp B/P Pulse Ox O2 Delivery O2 Flow Rate FiO2 12/21/16 04:30 36.3 60 18 131/86 100 Nasal Cannula 2.00 12/21/16 00:07 36.3 86 16 137/79 95 Nasal Cannula 2.00 Anesthetic Administered: GA Level of Alertness: Awake, talking MISHRA's with Equal Strength: Yes Pain: No Pain Scale Score: 5 Airway Device: LMA Lungs: Clear to Auscultation, Normal Air Movement Dermatome Level: Full Sensation Jose Wise DO Dec 21, 2016 06:58
--- NOTE | 2016-12-21 06:59 | PCM.ANEP2 ---
Post Anesthesia Evaluation ASA/CMS Post Anesthesia Date of Service: Dec 21, 2016 VS in Patient's Normal Range?: Yes Resp Stable; Airway Patent?: Yes CV Function & Hydration Stable: Yes Mental Status Recovered?: Yes Pain control Satisfactory?: Yes N/V Control Satisfactory?: Yes Jose Wise DO Dec 21, 2016 06:59
--- NOTE | 2016-12-21 08:16 | PCM.PNORTH ---
Subjective Date of Service: Dec 21, 2016 Visit Information: Reason for Visit Right Hip Fracture Surgery/Surgery Date Post-Op Day # Date of Admission: Dec 19, 2016 at 18:22 Hospital Day # Subjective Found the patient awake and alert and sitting up in bed. No complaints of pain at this time. Due to patient's aphasia is difficult to determine exactly what his concerns are that it is appearing that he feels he should go home from the hospital. I believe that he has no one staying with him on a routine basis but does have some family and friends that may be able to come in and look in on him. I have explained to him that considering his somewhat frail nature and the fact that he will be touch toe weightbearing only I do not feel that this would be a safe thing to do and I have advised him that he will likely discharge to detention facility for additional physical therapy and safety reasons. Postop General: No Complaints, No Shortness of Breath, No Chest Pain Pain Management: PO Objective Exam Objective Orientation: Alert and apparently oriented and pleasant. Dressing: Postoperative dressing is clean dry and intact. Wound: Wound is not observed this morning. Compartments: Calf and thigh are soft and nontender. Mobility/sensation: Toe wiggle and sensation are intact at right lower extremity distally. JENNIFER hose: None Dukes: In place and working Gait: No gait he is at this time with physical therapy. Vital Signs and I/O Vital Sign - Last Date Time Temp Pulse Resp B/P Pulse Ox O2 Delivery O2 Flow Rate FiO2 12/21/16 04:30 36.3 60 18 131/86 100 Nasal Cannula 2.00 Intake and Output 12/20/16 12/20/16 12/21/16 Cumulative From/Thru 14:59 22:59 06:59 12/19/16 13:39 - 12/21/16 06:35 Intake Total 500 ml 450 ml 945 ml 1895 ml Output Total 380 ml 550 ml 1485 ml Balance 500 ml 70 ml 395 ml 410 ml Intake Oral 0 ml 200 ml 200 ml IV Total 100 ml 450 ml 745 ml 1295 ml FFP 400 ml 400 ml Output Urine Total 350 ml 550 ml 1455 ml Estimated Blood Loss 30 ml 30 ml # Bowel Movements 0 Lab & Micro Results Laboratory Tests Test 12/20/16 12:30 12/20/16 16:04 12/20/16 17:59 12/21/16 06:05 Prothrombin Time 18.3sec (8.1-12.5) 16.1sec (8.1-12.5) Prothromb Time International Ratio 1.69ratio 1.49ratio Hold Urine Received (Received) White Blood Count 8.8th/mm3 (3.8-10.1) Red Blood Count 4.80mil/mm3 (4.40-5.80) Hemoglobin 13.0g/dL (13.8-17.2) Hematocrit 40.5% (41.0-50.0) Mean Corpuscular Volume 84.4fL (81-100) Mean Corpuscular Hemoglobin 27.1pg (27.0-35.0) Mean Corpuscular Hemoglobin Concent 32.1% (32.0-37.0) Red Cell Distribution Width 20.3% (12.3-15.4) Platelet Count 253bil/L (150-400) Neutrophils (%) (Auto) 89.4% (40-74) Lymphocytes (%) (Auto) 6.3% (14-46) Monocytes (%) (Auto) 4.0% (4-12) Eosinophils (%) (Auto) 0.1% (0-5) Basophils (%) (Auto) 0.1% (0-3) Sodium Level 141mEq/L (134-144) Potassium Level 4.8mEq/L (3.5-5.2) Chloride Level 100mEq/L (97-108) Carbon Dioxide Level 27mmol/L (18-29) Blood Urea Nitrogen 26mg/dL (8-27) Creatinine 1.12mg/dL (0.76-1.27) Estimat Glomerular Filtration Rate 66mL/min (>59) Glucose Level 156mg/dL (60-99) Calcium Level 8.9mg/dL (8.5-10.1) Result Diagram: 12/21/1660412/21/16604 General Appearance: Alert, Oriented X3, Cooperative, No Acute Distress ( patient appears to have some dysphagia and it is difficult to determine what his wishes and concerns are secondary to his communication issue.) Extremities: No Compartment Syndrom Noted, Thigh & Calf Soft/Nontender Postop Sensory Motor: Distal Motor Intact, Movement in Toes, Distal Sensation Intact Activity: Activity per PT, Ambulate with PT (continue formal physical therapy for mobility, gait and safety. Touch toe weightbearing only on the right lower extremity 6 weeks postop with a front wheeled walker.) Catheters: Urethral 2 Way Dukes Assessment & Plan Impression Patient is a somewhat cachectic 86-year-old gentleman who has suffered a ground- level fall with resultant right hip fracture and subsequent cannulated screw fixation on 12/20/[address] Neil Vasquez. Patient has a pre-existing aphasia which makes it difficult for him to communicate and 4 caregivers to understand his needs and concerns. Patient appears to indicate that he feels adamant about discharging to home after this hospital stay and I have discussed this with him at some length and advised him that this would not be likely secondary to safety issues for him. I do not believe he has anybody at home to help care for him on a full-time basis. Problems: Plan Postop day # 1 from right closed hip fracture with subsequent right hip cannulated screw fixation on 12/20/[address] Neil Vasquez. Weight bearing status: Touch toe weightbearing only on the right lower extremity 6 weeks postop Mobility aid: Front wheeled walker Immobilization: None Precautions: Standard postoperative safety precautions up only with assist. Physical therapy: Continue formal physical therapy for mobility, gait and safety. Pain control: Continue by mouth pain control as needed. DVT prophylaxis: Continue Lovenox for DVT prophylaxis and chronic warfarin for A. fib. Pharmacy to dose and management. I have discussed this with pharmacy and they feel that 40 mg Lovenox would be appropriate for DVT prophylaxis with continued chronic warfarin for patient's A. fib. Wound care: Wound should be kept clean dry and covered until seen in office in 2 weeks. Dukes: Dukes in place and working. This should be discontinued today on postoperative day 1, 12/21/2016 after first PT visit. Dressing: Interoperative dressing is clean dry and intact and will be changed to postop type dressing on postoperative day 2, 12/22/2016 JENNIFER sweet: None. These will be ordered today. Nursing communication: Nursing please look for JENNIFER sweet border and measure and apply these today. 2-week follow-up: Follow-up in 2 weeks at [facility] orthopedic clinic with medical provider for wound check and suture removal. 6-week follow-up: Follow-up in 6 weeks at [facility] orthopedic clinic with Dr. Neil Vasquez with AP pelvis and right crosstable lateral hip x-rays on arrival. Plan: Patient would prefer to discharge home on postop day #3 if he is well. I believe it is more likely patient will discharge to detention facility considering E he apparently has no consistent help at home and his cachectic body habitus and weightbearing status would likely be unsafe without some assistance. Orthopedics thanks hospitalist service for their help in the medical management of this patient. Discharge instructions: Touch toe weightbearing only on the right lower extremity 6 weeks postop using front wheeled walker. Keep wound clean and dry and covered until seen in office in 2 weeks. Discharge plan: Anticipate discharge to detention facility by hospitalist service on postop day #3, 12/23/2016. VTE Prophylaxis: Sub-Q Enoxaparin (pharmacy to dose), Theraputic Anticoag with Warfarin (pharmacy to dose), SCDs (bilateral short SCDs), JENNIFER Hose (bilateral thigh-high JENNIFER hose) Oscar Draper PA-C Dec 21, 2016 08:16
[2016-12-21] MEDS: Sodium Chloride LOK Flush 10 mL Syringe IV SCH ×2 (08:20→18:26)
[2016-12-21] MEDS: Senna-Docusate 8.6-50 mg Tablet PO SCH ×2 (08:58→20:43)
[2016-12-21 09:52] LABS: INR 1.25 ratio
--- NOTE | 2016-12-21 10:20 | PROG NOTE ---
[address] [address] PROGRESS NOTE PATIENT: GANGA MONTILLA : 1930 MR#: [id number] ADMIT: 12/19/2016 JOB ID: [id number] DATE: 12/21/2016 SUBJECTIVE: The patient is sitting on bed. He is not having any active chest pain or shortness of breath or new cardiovascular symptoms. OBJECTIVE: Blood pressure 111/67, heart rate 92 and regular, respiratory rate 16, oxygen saturation on room air 95%. Neck: No apparent JVD. Chest: No obvious crepitation or rhonchi. CVS: S1 variable. P2 does not appear to be loud. No S3. No S4. Grade 2/6 ejection systolic murmur at the base and 3 x 6 almost pansystolic murmur near the apex and tricuspid area. Abdomen: No new changes. Extremities: No significant pedal edema. 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 Vascular: No evidence of critical limb ischemia. LABORATORIES: Sodium 141, potassium 4.8, BUN 26, creatinine 1.12. WBC 8.8, hemoglobin 13, platelets 253. 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 Had a mechanical fall and broke his right hip. Yesterday, he underwent surgery, which he tolerated. There was no obvious cardiac complication. Clinically, at present, the patient does not appear to be in gross congestive heart failure. At this point of time from cardiac perspective, we will recommend resuming his home cardiac medications including warfarin for target INR between 2 and 3. I will let the Hospitalist team manage Coumadin. He has an established make ready mechanic, Dr. Parham. Will recommend the patient to see Dr. Parham as an outpatient. The patient also has appointment at the [facility] for cardiac amyloidosis workup. At this point of time, the patient is hemodynamically stable and not having any unstable cardiovascular symptoms. Cardiology service will sign off. TOTAL TIME SPENT: About 35 minutes.
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
--- NOTE | 2016-12-21 15:22 | NUR ---
Gave access and faxed facehseet to [facility] per PULMONARY PHYSICAL THERAPIST
--- NOTE | 2016-12-21 15:25 | NUR ---
Evaluation completed. Please go to "Notes" then click on "Assessments and Notes" (bottom left corner of screen). Then select appropriate discipline tab on top of screen.
--- NOTE | 2016-12-21 15:26 | PCM.CONPHA ---
Subjective Status post fall, right hip fracture Reason for Pharmacy Consult: Anticoagulation Management Assessment/Plan Assessment/Plan Warfarin Management by Pharmacy Indication: AFIB CHADS2-VASc: 6 Home Dose: Warfarin 5 mg daily INR Goal: 2-3 Duration: Unknown Wt: 62 kg Anticoagulation Trends Lab Date Result Dose INR 12/21/16 1.25 NOTE: 2.5mg vitamin K given IV night of 12/19 for procedure Therapeutic bridge therapy: No (Lovenox ppx) Assessment/Plan - Sub-herapeutic INR.Post vitamin k for procedure. -Will initiate warfarin 5 mg tonight. -Pharmacy to monitor INR/CBC/signs of bleeding while inpatient. ThanksRobbin Dwaine Pharm.D. Adryan Siegel Dec 21, 2016 15:26
--- NOTE | 2016-12-21 23:31 | PCM.PNMED ---
Subjective Date of Service Dec 21, 2016 Subjective Patient is feeling a little bit better. He is eager to put weight on his right lower extremity but has been told repeatedly by physical therapy that he is not to do so, per orthopedic recommendations. Exam Vital Signs Vital Sign - Last Date Time Temp Pulse Resp B/P Pulse Ox O2 Delivery O2 Flow Rate FiO2 12/21/16 20:00 36.6 61 18 103/66 96 Room Air 12/21/16 04:30 2.00 Intake and Output 12/20/16 12/20/16 12/21/16 Cumulative From/Thru 15:00 23:00 07:00 12/19/16 13:39 - 12/21/16 06:35 Intake Total 500 ml 450 ml 945 ml 1895 ml Output Total 380 ml 550 ml 1485 ml Balance 500 ml 70 ml 395 ml 410 ml Intake Oral 0 ml 200 ml 200 ml IV Total 100 ml 450 ml 745 ml 1295 ml FFP 400 ml 400 ml Output Urine Total 350 ml 550 ml 1455 ml Estimated Blood Loss 30 ml 30 ml # Bowel Movements 0 Exam General: Patient is in no apparent distress sitting in the bedside chair. HEENT: Head is atraumatic and normocephalic. Eyes: Pupils are equally round and reactive to light and accommodation. Extraocular muscles are intact. Sclera are white, anicteric. Subconjunctival mucosa is pink. Ears and nose are unremarkable. Oropharynx: There are no mucosal lesions, there is no thrush , there is no pharyngitis. Neck: Is supple, there are no nodes, or masses or tenderness. Chest: Is clear to auscultation and percussion. There are no rales, rhonchi, wheezes or rubs. Heart: Rate, rhythm is regular. There is no murmur, rub or gallop. Abdomen: Good bowel sounds are present. Abdomen is soft, nontender, no organomegaly or masses were appreciated. Extremities: The right hip incision dressing is clean dry and intact. There is no edema, there is no cellulitis, no rash. Neurologic: There are no focal neurological deficits. Cranial nerves II through XII are intact. There are no sensory or motor deficits. Psychiatric: Patients mood is calm and shows no sign of agitation. Genital: Deferred Rectal: Deferred Lab and Diagnostics Result Diagram: 12/21/16 1430 12/21/16 0605 X-Rays, CTs and MRIs CT scan reviewed and showed : Minimally displaced right femoral neck fracture PROCEDURE: X-RAY PELVIS W/LAT HIP (RT) ([id number]) INDICATIONS: status post right hip pinning TECHNIQUE: AP pelvis with lateral view(s) of the right hip(s). COMPARISON: [facility], CR, XR HIP 2VW RT, 12/20/2016, 17:00. FINDINGS: Left hip arthroplasty is present. There has been right femoral fixation with good alignment of fracture fragments. Hardware is intact. IMPRESSION: Right femoral fixation with good anatomic alignment of fracture fragments. Dictated by: Laura Saravia M.D. on 12/20/2016 at 19:13 Approved by: Laura Saravia M.D. on 12/20/2016 at 19:14 Assessment & Plan 86 years old male with past medical history of tarry tract is status post left hip replacement, hypertension, hyperlipidemia, CVA with expressive aphasia, atrial ablation on Coumadin who presented at the hospital complaining about right hip pain after he sustained an accidental fall at a restaurant. # Acute Femoral neck fracture after ground level fall. Prior to admission - Appreciate ortho consult. Patient is postop day #1 open reduction internal fixation of the right hip - Patient was found to have a right hip mildly comminuted, minimally displaced right hip femoral neck fracture. The fracture was satisfactorily stabilized in situ with 3 partially threaded Synthes 7.3 mm cannulated screws. Intraoperative fluoroscopic views confirmed satisfactory reduction and fixation placed hardware without any intra-articular violation or further femoral neck fracture displacement. # History of aortic stenosis, Moderately severely dilated ascending and aortic arch, Atrial fibrillation, RBBB and Left anterior bifascicular block, and aortic stenosis. stable at this time - I consulted cardiology today and appreciate their input and recommendations - Patient was cleared for surgery per cardiology recs - We will continue with home meds # History of Afib. 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 Received TPA at that time. - currently stable. 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 Not sure about the results. - We will defer further f/u to outpatient setting at this time. - Patient is to have a myocardial biopsy at the [facility] in December Position: The plan is to transfer to a SNF in 2-3 days post-op. Pain Evaluation: Adequate Pain Control VTE Prophylaxis: Sub-Q Enoxaparin (pharmacy to dose), Theraputic Anticoag with Warfarin (pharmacy to dose), SCDs (bilateral short SCDs), JENNIFER Hose (bilateral thigh-high JENNIFER hose) VTE Mechanical Devices: Anti-Embolic stockings Resuscitation Status: CPR: Attempt Resuscitation WilliamAnand MD Dec 21, 2016 23:31
[2016-12-22 00:18] VITALS: BP 106/66; PULSE 57; RESP 12; O2SAT 98
[2016-12-22] MEDS: Sodium Chloride LOK Flush 10 mL Syringe IV SCH ×3 (00:22→15:40)
[2016-12-22] MEDS: Lactated Ringer's 1,000 ML IV SCH ×2 (03:25→20:19)
[2016-12-22 04:31] VITALS: BP 116/74; PULSE 55; RESP 16; O2SAT 97
--- NOTE | 2016-12-22 06:24 | NUR ---
NOC Pt has had a good night. He has slept well off and on. He has been OOB twice with a 1 person ass.and FWW to [facility]. Passing only flatus. PT is non-compliant with TTWB and was encouraged not to bear weight at all on his RLE. He did better the 2nd time. Voids per urinal small, frequent amounts. Took tylenol once with much persuasion. B/P has been above 100's and stable through night. Afebrile. Dressing to R hip has scant amount of old drainage noted. CMS intact to RLE with 4/5 strength noted. HR has been martine in the 50-60 range all noc. Distal pulses are weak to palpation. There was a small amount of bleeding noted at urethra s.p perez removal yesterday I am assuming and pt did c.o mild burning for his first 2 voids and improved through night. Needs assist with turning. Takes fluids and pills without difficulty. Severe expressive aphasia noted from CVA, but pt is oriented. This is very frustrating for pt. WIll CTM progress. PT will need SNF placement.
--- NOTE | 2016-12-22 08:15 | PCM.PNORTH ---
Subjective Date of Service: Dec 22, 2016 Visit Information: Reason for Visit Right Hip Fracture Surgery/Surgery Date Post-Op Day # Date of Admission: Dec 19, 2016 at 18:22 Hospital Day # Subjective Found patient sleeping and easily awakened. No complaints of pain at this time. Patient is found supine with his hips slightly flexed and his knees in the air. This seems to be a comfortable position for him and he does not seem to have any pain or problems moving his right hip. Patient has aphasia and due to difficulty in maintaining himself understood seems to restrict his communication if it is not needed. Postop General: No Complaints, No Shortness of Breath, No Chest Pain Pain Management: PO Objective Exam Objective Orientation: Alert and able to follow commands and answer questions and pleasant. Dressing: Interoperative dressing was lightly soiled and intact. Interoperative dressing was changed to postoperative island-type dressing with an strength or ventilation. Wound: Surgical wound is clean dry and intact with no focal erythema or swelling and no redness. Compartments: Calf and thigh are soft and nontender. Mobility/sensation: Toe movement and sensation are intact to right lower extremity distally. Dukes: Absent Gait: Gait 3 feet with formal physical therapy on 12/22/2016. Recommendation is for DC to [facility] facility this time Vital Signs and I/O Vital Sign - Last Date Time Temp Pulse Resp B/P Pulse Ox O2 Delivery O2 Flow Rate FiO2 12/22/16 04:31 36.6 55 16 116/74 97 Room Air 12/21/16 04:30 2.00 Intake and Output 12/21/16 12/21/16 12/22/16 Cumulative From/Thru 15:00 23:00 07:00 12/19/16 13:39 - 12/22/16 06:00 Intake Total 2308 ml 1203 ml 5406 ml Output Total 1475 ml 950 ml 3910 ml Balance 833 ml 253 ml 1496 ml Intake Oral 1720 ml 500 ml 2420 ml IV Total 588 ml 703 ml 2586 ml FFP 400 ml Output Urine Total 1475 ml 950 ml 3880 ml Estimated Blood Loss 30 ml # Bowel Movements 1 1 Lab & Micro Results Laboratory Tests Test 12/21/16 09:30 12/21/16 14:30 Prothrombin Time 13.4sec (8.1-12.5) Prothromb Time International Ratio 1.25ratio Hemoglobin 12.1g/dL (13.8-17.2) Hematocrit 38.2% (41.0-50.0) Result Diagram: 12/21/16 1430 12/21/16 0605 General Appearance: Alert, Cooperative, No Acute Distress Extremities: No Compartment Syndrom Noted, Thigh & Calf Soft/Nontender Postop Sensory Motor: Distal Motor Intact, Movement in Toes, Distal Sensation Intact Activity: Activity per PT, Ambulate with PT (continue formal physical therapy for mobility, gait and safety. Touch toe weightbearing only on the right lower extremity 6 weeks postop with a front wheeled walker.) Catheters: None Assessment & Plan Impression Patient is a pleasant 86-year-old gentleman who has difficulty communicating secondary to aphasia resulting from a previous CVA. Patient is willing and is making a good effort to participate with formal therapy. He will likely discharge to [facility] facility. Problems: Plan Postop day # 2 from right closed hip fracture with subsequent right hip cannulated screw fixation on 12/20/[address] Neil Vasquez. Weight bearing status: Touch toe weightbearing only on the right lower extremity 6 weeks postop Mobility aid: Front wheeled walker Immobilization: None Precautions: Standard postoperative safety precautions up only with assist. Physical therapy: Continue formal physical therapy for mobility, gait and safety. Pain control: Continue by mouth pain control as needed. DVT prophylaxis: Continue Lovenox for DVT prophylaxis and chronic warfarin for A. fib. Pharmacy to dose and management. I have discussed this with pharmacy and they feel that 40 mg Lovenox would be appropriate for DVT prophylaxis with continued chronic warfarin for patient's A. fib. Wound care: Wound should be kept clean dry and covered until seen in office in 2 weeks. Dukes: Absent Dressing: Interoperative dressing is rightly so intact. Interoperative dressing is changed to postop type Island dressing with an Stram for evaluation. Surgical wound is clean dry and intact with no focal swelling or erythema and no drainage. JENNIFER sweet: In place. Nursing communication: 2-week follow-up: Follow-up in 2 weeks at [facility] orthopedic clinic with medical provider for wound check and suture removal. 6-week follow-up: Follow-up in 6 weeks at [facility] orthopedic clinic with Dr. Neil Vasquez with AP pelvis and right crosstable lateral hip x-rays on arrival. Plan: Patient would prefer to discharge home on postop day #3 if he is well. I believe it is more likely patient will discharge to [facility] facility considering he apparently has no consistent help at home and his cachectic body habitus and weightbearing status would likely be unsafe without some assistance. Orthopedics thanks hospitalist service for their help in the medical management of this patient. Discharge instructions: Touch toe weightbearing only on the right lower extremity 6 weeks postop using front wheeled walker. Using front wheeled walker for ambulation with assist for the time being. Keep wound clean and dry and covered until seen in office in 2 weeks for suture removal and wound check. Discharge plan: Anticipate discharge to [facility] facility by hospitalist service on or before postop day #3, 12/23/2016. VTE Prophylaxis: Sub-Q Enoxaparin (pharmacy to dose), Theraputic Anticoag with Warfarin (pharmacy to dose), SCDs (bilateral short SCDs), JENNIFER Hose (bilateral thigh-high JENNIFER hose) Resuscitation Status: CPR: Attempt Resuscitation Oscar Draper PA-C Dec 22, 2016 08:15
[2016-12-22] MEDS: Senna-Docusate 8.6-50 mg Tablet PO SCH ×2 (08:17→20:04)
[2016-12-22 08:43] LABS: BASOPHILS % (AUTO) 0.2 % (0-3); EOSINOPHILS % (AUTO) 6.6 % (0-5); MONOCYTES % (AUTO) 9.2 % (4-12); Mean Corpuscular Volume 81.2 fL (81-100); NEUTROPHILS % (AUTO) 68.7 % (40-74); Platelet Count 255 bil/L (150-400)
[2016-12-22 08:53] LABS: INR 1.45 ratio
[2016-12-22 09:11] LABS: Phosphorus 2.6 mg/dL (2.5-4.9)
[2016-12-22 14:17] VITALS: BP 101/72; PULSE 76; RESP 18; O2SAT 98
--- NOTE | 2016-12-22 15:02 | NUR ---
Ortho Patient is oriented and able to make needs known. Expressive aphasia per baseline since CVA. Surgical dressing to R hip changed by ortho today. Bilat thigh JENNIFER hose in place and SCD's. CMS intact to R foot. Patient worked with PT today and ambulated with FWW. After therapy session, patient rated pain 4/10, medicated with tylenol which was effective with bringing pain level down. Also repositioned patient for comfort with pillow inbetween legs.
--- NOTE | 2016-12-22 19:35 | PCM.PNMED ---
Subjective Date of Service Dec 22, 2016 Subjective Patient is unhappy with the lunch that he was provided. He states that he wants a cheeseburger for dinner. The patient's nurse Vidal stated that the patient had [place] toast for breakfast and ate well. The patient has no other new complaints. Exam Vital Signs Vital Sign - Last Date Time Temp Pulse Resp B/P Pulse Ox O2 Delivery O2 Flow Rate FiO2 12/22/16 14:17 36.4 76 18 101/72 98 Room Air 12/21/16 04:30 2.00 Intake and Output 12/21/16 12/21/16 12/22/16 Cumulative From/Thru 15:00 23:00 07:00 12/19/16 13:39 - 12/22/16 06:00 Intake Total 2308 ml 1203 ml 5406 ml Output Total 1475 ml 950 ml 3910 ml Balance 833 ml 253 ml 1496 ml Intake Oral 1720 ml 500 ml 2420 ml IV Total 588 ml 703 ml 2586 ml FFP 400 ml Output Urine Total 1475 ml 950 ml 3880 ml Estimated Blood Loss 30 ml # Bowel Movements 1 1 Exam General: Patient is in no apparent distress sitting up in bed having lunch. HEENT: Head is atraumatic and normocephalic. Eyes: Pupils are equally round and reactive to light and accommodation. Extraocular muscles are intact. Sclera are white, anicteric. Subconjunctival mucosa is pink. Ears and nose are unremarkable. Oropharynx: There are no mucosal lesions, there is no thrush , there is no pharyngitis. Neck: Is supple, there are no nodes, or masses or tenderness. Chest: Is clear to auscultation and percussion. There are no rales, rhonchi, wheezes or rubs. Heart: Rate, rhythm is regular. There is no murmur, rub or gallop. Abdomen: Good bowel sounds are present. Abdomen is soft, nontender, no organomegaly or masses were appreciated. Extremities: The right hip incision dressing is clean dry and intact. There is no edema, there is no cellulitis, no rash. Neurologic: There are no focal neurological deficits. Cranial nerves II through XII are intact. There are no sensory or motor deficits. Psychiatric: Patients mood is calm and shows no sign of agitation. Genital: Deferred Rectal: Deferred Lab and Diagnostics Result Diagram: 2/25/17 0830 2/25/17 0830 X-Rays, CTs and MRIs CT scan reviewed and showed : Minimally displaced right femoral neck fracture PROCEDURE: X-RAY PELVIS W/LAT HIP (RT) ([id number]) INDICATIONS: status post right hip pinning TECHNIQUE: AP pelvis with lateral view(s) of the right hip(s). COMPARISON: [facility], CR, XR HIP 2VW RT, 12/20/2016, 17:00. FINDINGS: Left hip arthroplasty is present. There has been right femoral fixation with good alignment of fracture fragments. Hardware is intact. IMPRESSION: Right femoral fixation with good anatomic alignment of fracture fragments. Dictated by: Laura Saravia M.D. on 12/20/2016 at 19:13 Approved by: Laura Saravia M.D. on 12/20/2016 at 19:14 Assessment & Plan 86 years old male with past medical history of a left hip replacement , hypertension, hyperlipidemia, CVA with expressive aphasia, atrial ablation on Coumadin who presented at the hospital complaining about right hip pain after he sustained an accidental fall at a restaurant. # Acute Femoral neck fracture after ground level fall. Prior to admission - Appreciate ortho consult. Patient is postop day #2 open reduction internal fixation of the right hip - Patient was found to have a right hip mildly comminuted, minimally displaced right hip femoral neck fracture. The fracture was satisfactorily stabilized in situ with 3 partially threaded Synthes 7.3 mm cannulated screws. Intraoperative fluoroscopic views confirmed satisfactory reduction and fixation placed hardware without any intra-articular violation or further femoral neck fracture displacement. # History of aortic stenosis, with a moderately severely dilated ascending and aortic arch, Atrial fibrillation, RBBB and Left anterior bifascicular block, and aortic stenosis. stable at this time - Cardiology has been consulted and we appreciate their input and recommendations - Patient was cleared for surgery per cardiology accommodations - We will continue with home meds of metoprolol tartrate 50 mg by mouth daily # History of Afib. rate controlled - Metoprolol tartrate 50 mg by mouth daily - Continue Coumadin dosing per pharmacy # Anticoagulation with Coumadin - goal INR prior to surgery is < 1.5 - FFP x 2 and f/u INR - We have resumed Coumadin and Lovenox bridging therapy status post surgery ( per ortho recs) # H/o CVA in 12/2012 with expressive aphasia. Received TPA at that time. - Patient is currently stable. - Continue Coumadin per pharmacy # Most recent echo on 09/2016 "suggestive of cardiac amyloid." - The patient is followed by oncology with recent BM biopsy to r/o MM. Not sure about the results. - We will defer further f/u to outpatient setting at this time. - Patient is to have a myocardial biopsy at the [facility] in December Position: The plan is to transfer to a SNF in 2-3 days post-op. Pain Evaluation: Adequate Pain Control VTE Prophylaxis: Sub-Q Enoxaparin (pharmacy to dose), Theraputic Anticoag with Warfarin (pharmacy to dose), SCDs (bilateral short SCDs), JENNIFER Hose (bilateral thigh-high JENNIFER hose) VTE Mechanical Devices: Intermittant Pneumatic CD, Anti-Embolic stockings Resuscitation Status: CPR: Attempt Resuscitation WilliamAnand MD Dec 22, 2016 19:35
[2016-12-22 20:50] VITALS: BP 130/86; PULSE 67; RESP 16; O2SAT 97
[2016-12-23] MEDS: Sodium Chloride LOK Flush 10 mL Syringe IV SCH ×2 (05:01→08:14)
[2016-12-23 06:10] VITALS: BP 131/89; PULSE 65; RESP 16; O2SAT 99
[2016-12-23 06:25] LABS: BASOPHILS % (AUTO) 0.5 % (0-3); EOSINOPHILS % (AUTO) 13.8 % (0-5); MONOCYTES % (AUTO) 8.4 % (4-12); Mean Corpuscular Hemoglobin 27.2 pg (27.0-35.0); Mean Corpuscular Volume 84.1 fL (81-100); NEUTROPHILS % (AUTO) 63.3 % (40-74); Platelet Count 243 bil/L (150-400)
--- NOTE | 2016-12-23 06:27 | PCM.PNORTH ---
Subjective Date of Service: Dec 23, 2016 Visit Information: Reason for Visit Right Hip Fracture Surgery/Surgery Date Post-Op Day # Date of Admission: Dec 19, 2016 at 18:22 Hospital Day # Subjective Found patient sleeping and easily awakened. No complaints of pain at this time. Discussed with patient that he will likely discharge to group home facility today if determined to be medically appropriate by hospitalist service. Patient is aware of this. I have encouraged patient regarding touch toe weightbearing and have demonstrated this for him again today and he indicates that he readily understands the maneuver. Postop General: No Complaints, No Shortness of Breath, No Chest Pain Pain Management: PO Objective Exam Objective Orientation: Alert and oriented and pleasant. Dressing: Postoperative dressing is clean dry and intact. Wound: Wound is not observed today. Compartments: Calf and thigh are soft and nontender. Mobility/sensation: Toe wiggle and sensation are intact at right lower extremity distally JENNIFER hose: Bilateral thigh high JENNIFER hose are in place. Dukes: Absent Gait: Gait 10-15 feet yesterday on 12/22/2016 with physical therapy. Physical therapy recommendation is for discharge to group home facility. Vital Signs and I/O Vital Sign - Last Date Time Temp Pulse Resp B/P Pulse Ox O2 Delivery O2 Flow Rate FiO2 12/23/16 00:58 Supplement Oxygen 12/22/16 20:50 36.6 67 16 130/86 97 12/21/16 04:30 2.00 Intake and Output 12/22/16 12/22/16 12/23/16 Cumulative From/Thru 15:00 23:00 07:00 12/19/16 13:39 - 12/23/16 04:45 Intake Total 1566 ml 717 ml 7689 ml Output Total 800 ml 4710 ml Balance 766 ml 717 ml 2979 ml Intake Oral 560 ml 2980 ml IV Total 1006 ml 717 ml 4309 ml FFP 400 ml Output Urine Total 800 ml 4680 ml Estimated Blood Loss 30 ml # Bowel Movements 1 Lab & Micro Results Laboratory Tests Test 12/22/16 08:30 12/23/16 06:10 White Blood Count 10.2th/mm3 (3.8-10.1) Red Blood Count 4.30mil/mm3 (4.40-5.80) Hemoglobin 11.6g/dL (13.8-17.2) Hematocrit 34.9% (41.0-50.0) Mean Corpuscular Volume 81.2fL (81-100) Mean Corpuscular Hemoglobin 27.0pg (27.0-35.0) Mean Corpuscular Hemoglobin Concent 33.2% (32.0-37.0) Red Cell Distribution Width 20.4% (12.3-15.4) Platelet Count 255bil/L (150-400) Neutrophils (%) (Auto) 68.7% (40-74) Lymphocytes (%) (Auto) 15.0% (14-46) Monocytes (%) (Auto) 9.2% (4-12) Eosinophils (%) (Auto) 6.6% (0-5) Basophils (%) (Auto) 0.2% (0-3) Prothrombin Time 15.6sec (8.1-12.5) Prothromb Time International Ratio 1.45ratio Sodium Level 137mEq/L (134-144) Potassium Level 4.5mEq/L (3.5-5.2) Chloride Level 101mEq/L (97-108) Carbon Dioxide Level 24mmol/L (18-29) Blood Urea Nitrogen 31mg/dL (8-27) Creatinine 1.06mg/dL (0.76-1.27) Estimat Glomerular Filtration Rate 71mL/min (>59) Glucose Level 93mg/dL (60-99) Calcium Level 8.4mg/dL (8.5-10.1) Phosphorus Level 2.6mg/dL (2.5-4.9) Magnesium Level 2.0mg/dL (1.6-2.6) Total Bilirubin 0.9mg/dL (0.0-1.2) Aspartate Amino Transf (AST/SGOT) 34U/L (0-50) Alanine Aminotransferase (ALT/SGPT) 8U/L (0-44) Alkaline Phosphatase 127U/L (25-160) Total Protein 6.0g/dL (6.4-8.4) Albumin 3.1g/dL (3.4-5.0) Result Diagram: 12/22/1630 12/22/1630 General Appearance: Alert, Oriented X3, Cooperative, No Acute Distress Extremities: No Compartment Syndrom Noted, Thigh & Calf Soft/Nontender Postop Sensory Motor: Distal Motor Intact, Movement in Toes, Distal Sensation Intact Activity: Activity per PT, Ambulate with PT (continue formal physical therapy for mobility, gait and safety. 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 He has attempted good participation with formal therapy but is lacking mobility and stamina for self-care gait distances at this time. Problems: Plan Postop day # 3 from right closed hip fracture with subsequent right hip cannulated screw fixation on 12/20/[address] Neil Vasquez. Weight bearing status: Touch toe weightbearing only on the right lower extremity 6 weeks postop Mobility aid: Front wheeled walker Immobilization: None Precautions: Standard postoperative safety precautions up only with assist. Physical therapy: Continue formal physical therapy for mobility, gait and safety. Pain control: Continue by mouth pain control as needed. DVT prophylaxis: Continue Lovenox for DVT prophylaxis and chronic warfarin for A. fib. Pharmacy to dose and management. I have discussed this with pharmacy and they feel that 40 mg Lovenox would be appropriate for DVT prophylaxis with continued chronic warfarin for patient's A. fib. Wound care: Wound should be kept clean dry and covered until seen in office in 2 weeks. Dukes: Absent Dressing: Postoperative dressing is clean dry and intact. JENNIFER hose: In place. Nursing communication: 2-week follow-up: Follow-up in 2 weeks at [facility] [place] [facility] with medical provider for wound check and suture removal. 6-week follow-up: Follow-up in 6 weeks at [facility] [place] orthopedic clinic with Dr. Neil Vasquez with AP pelvis and right crosstable lateral hip x-rays on arrival. Plan: Per physical therapy recommendation I believe patient should discharged to group home facility based on his mobility and stamina. Orthopedics will sign off on this patient at this time but as always we will remain available for consultation or treatment as needed. Orthopedics thanks hospitalist service for their help in the medical management of this patient. Discharge instructions: Touch toe weightbearing only on the right lower extremity 6 weeks postop using front wheeled walker. Using front wheeled walker for ambulation with assist for the time being. Keep wound clean and dry and covered until seen in office in 2 weeks for suture removal and wound check. Discharge plan: Anticipate discharge to group home facility by hospitalist service today on postop day #3, 12/23/2016. VTE Prophylaxis: Sub-Q Enoxaparin (pharmacy to dose), Theraputic Anticoag with Warfarin (pharmacy to dose), SCDs (bilateral short SCDs), JENNIFER Hose (bilateral thigh-high JENNIFER hose) Resuscitation Status: CPR: Attempt Resuscitation Oscar Draper PA-C Dec 23, 2016 06:27
[2016-12-23 06:38] LABS: INR 1.8 ratio
--- NOTE | 2016-12-23 06:57 | PCM.PHAPRO ---
Progress Status post fall, right hip fracture -Dec 22-Dec 23-Nov 1.25 1.45 1.80 0.2 0.35 5 5 5 Phill Lofton Dec 23, 2016 06:57
[2016-12-23] MEDS: Senna-Docusate 8.6-50 mg Tablet PO SCH (08:14)
[2016-12-23] MEDS: Lactated Ringer's 1,000 ML IV SCH (08:23)
--- NOTE | 2016-12-23 09:14 | NUR ---
ELISE signed. Emily Maier [employer]OUNTS PAYABLE MANAGER
[2016-12-23 12:32] VITALS: BP 105/67; PULSE 54; RESP 18; O2SAT 99
--- NOTE | 2016-12-23 12:56 | PCM.DIMED ---
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
[2016-12-23] MEDS ORDERED: DOCU-41 PO (13:00)
[2016-12-23] MEDS ORDERED: Acetaminophen PO (13:00)
--- NOTE | 2016-12-23 14:27 | NUR ---
Social Work- Discharge Data: EMR Reviewed. Pt is on day 4 of hospitalization per H&P. Pt is medically stable to discharge today. PT continues to recommend SNF placement. YUNI spoke with Liana, stephie at [facility], who is agreeable to accepting pt today. Liana arranged transportation via cabulance at 1500. YUNI created packet and faxed orders. YUNI updated pt at bedside and informed daughter Della [phone] of discharge. RN, UC, pt/family and [facility] all updated and agreeable to plan. Assessment: Pt who would benefit from SNF. Plan: Pt to discharge to [facility] today via cabulance at 1530. RN, UC, pt/family and [facility] all updated and agreeable to plan. GISELA Leggett
--- NOTE | 2016-12-23 15:22 | NUR ---
DISCHARGE C/o pain in L hip 01/04 with movement but states pain resolves when sitting or not moving. Declined any medication treatment. Removed patient's saline lock IV from left forearm, gauze dressing applied. Patient got dressed into his clothes with assistance. Anxiously anticipating discharge. All patient belongings are packed in a bag, packet with patient. Awaiting transportation to SNF. Report called to Jodi @ [facility].
--- NOTE | 2016-12-23 20:36 | PCM.DC.MED ---
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 COMPARISON: [facility], CR, XR HIP 2VW RT, 12/20/2016, 17:00. FINDINGS: Left hip arthroplasty is present. There has been right femoral fixation with good alignment of fracture fragments. Hardware is intact. IMPRESSION: Right femoral fixation with good anatomic alignment of fracture fragments. Dictated by: Laura Saravia M.D. on 12/20/2016 at 19:13 Approved by: Laura Saravia M.D. on 12/20/2016 at 19:14 Brief History This is an 86 years old male who is status post left hip replacement. He has a history of hypertension, hyperlipidemia, CVA with expressive aphasia , atrial ablation on Coumadin who presented at the hospital complaining about right hip pain after he sustained an accidental fall at a restaurant the day of admission. Patient denied any chest pain, palpitation, lightheadedness prior to the event. Fall was a ground-level. CT scan of the emergency room show a minimally displaced right femoral neck fracture. Orthopedist was consulted and patient is being arranged for the OR within the next 24 -48 hours for admission. Patient is on Coumadin for atrial fibrillation and is ionized 1.8 today. Ideally surgery would like INR to be at least 1.5 prior to intervention. She was admitted to the hospital service. An orthopedic surgery was consulted. Hospital Course 86 years old male with past medical history of a left hip replacement , hypertension, hyperlipidemia, CVA with expressive aphasia, atrial ablation on Coumadin who presented at the hospital complaining about right hip pain after he sustained an accidental fall at a restaurant. # Acute right Femoral neck fracture after ground level fall. Prior to admission - Appreciate ortho consult. Patient is postop day #3 open reduction internal fixation of the right hip - Patient was found to have a right hip mildly comminuted, minimally displaced right hip femoral neck fracture. The fracture was satisfactorily stabilized in situ with 3 partially threaded Synthes 7.3 mm cannulated screws. Intraoperative fluoroscopic views confirmed satisfactory reduction and fixation placed hardware without any intra-articular violation or further femoral neck fracture displacement. Patient is postop day #3 # History of aortic stenosis, with a moderately severely dilated ascending and aortic arch, Atrial fibrillation, RBBB and Left anterior bifascicular block, and aortic stenosis. stable at this time - Cardiology has been consulted and we appreciate their input and recommendations - Patient was cleared for surgery per cardiology accommodations - We will continue with home meds of metoprolol tartrate 50 mg by mouth daily # History of Afib. rate controlled - Metoprolol tartrate 50 mg by mouth daily - Continue Coumadin dosing per pharmacy # Anticoagulation with Coumadin - goal INR prior to surgery is < 1.5 - FFP x 2 and f/u INR - We have resumed Coumadin and Lovenox bridging therapy status post surgery ( per ortho recs) during the hospitalization. - Patient is to resume his usual dose of Coumadin at the rehabilitation center. # H/o CVA in 12/2012 with expressive aphasia. Received TPA at that time. - Patient is currently stable. - Continue Coumadin at the rehabilitation center. 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 Not sure about the results. - We will defer further f/u to outpatient setting at this time. - Patient is to have a myocardial biopsy at the [facility] in December Disposition: Patient is to be transferred to the inpatient rehabilitation center today. Exam Vital Signs (Last) Date Time Temp Pulse Resp B/P Pulse Ox O2 Delivery O2 Flow Rate FiO2 12/23/16 12:42 Room Air 12/23/16 12:32 36.3 54 18 105/67 99 12/21/16 04:30 2.00 Test 12/19/16 19:30 12/20/16 04:49 12/20/16 17:59 12/22/16 08:30 Hold Purple Top Tube Received (Received) Hold [place] Top Tube Received (Received) Urine Color Yellow (YELLOW) Urine Appearance Clear (CLEAR,HAZY) Urine pH 8.0 (5.0-8.0) Urine Specific [place] 1.010 (1.003-1.035) Urine Protein Negativemg/dL (NEG,TRACE) Urine Glucose (UA) Negativemg/dL (NEGATIVE) Urine Ketones Negativemg/dL (NEGATIVE) Urine Occult Blood Negative (NEGATIVE) Urine Nitrite Negative (NEGATIVE) Urine Bilirubin Negative (NEGATIVE) Urine Urobilinogen Normalmg/dL (NORMAL) Urine Leukocyte Esterase Negative (NEGATIVE) Urine RBC 0-2/hpf (0-2) Urine WBC 0-5/hpf (0-5) Urine Epithelial Cells None/hpf (NONE-MOD) Urine Crystals None seen (NONE SEEN) Urine Bacteria None/hpf (NONE-FEW) Urine Hyaline Casts None/lpf (NONE) Urine Granular Casts None seen (NONE SEEN) Urine Waxy Casts None seen (NONE SEEN) Urine Red Blood Cell Casts None seen (NONE SEEN) Urine White Blood Cell Casts None seen (NONE SEEN) Urine Mucus None seen (None Seen) Urine Trichomonas None seen (NONE SEEN) Urine Yeast None (NONE SEEN) Urinalysis Comment None Urine Culture Reflexed Not indicated Hold Urine Received (Received) Phosphorus Level 2.6mg/dL (2.5-4.9) Magnesium Level 2.0mg/dL (1.6-2.6) Test 12/23/16 06:10 White Blood Count 9.3th/mm3 (3.8-10.1) Red Blood Count 4.41mil/mm3 (4.40-5.80) Hemoglobin 12.0g/dL (13.8-17.2) Hematocrit 37.1% (41.0-50.0) Mean Corpuscular Volume 84.1fL (81-100) Mean Corpuscular Hemoglobin 27.2pg (27.0-35.0) Mean Corpuscular Hemoglobin Concent 32.3% (32.0-37.0) Red Cell Distribution Width 20.9% (12.3-15.4) Platelet Count 243bil/L (150-400) Neutrophils (%) (Auto) 63.3% (40-74) Lymphocytes (%) (Auto) 13.8% (14-46) Monocytes (%) (Auto) 8.4% (4-12) Eosinophils (%) (Auto) 13.8% (0-5) Basophils (%) (Auto) 0.5% (0-3) Prothrombin Time 19.5sec (8.1-12.5) Prothromb Time International Ratio 1.80ratio Sodium Level 141mEq/L (134-144) Potassium Level 4.5mEq/L (3.5-5.2) Chloride Level 102mEq/L (97-108) Carbon Dioxide Level 27mmol/L (18-29) Blood Urea Nitrogen 28mg/dL (8-27) Creatinine 0.99mg/dL (0.76-1.27) Estimat Glomerular Filtration Rate 77mL/min (>59) Glucose Level 93mg/dL (60-99) Calcium Level 8.7mg/dL (8.5-10.1) Total Bilirubin 0.9mg/dL (0.0-1.2) Aspartate Amino Transf (AST/SGOT) 40U/L (0-50) Alanine Aminotransferase (ALT/SGPT) 10U/L (0-44) Alkaline Phosphatase 150U/L (25-160) Total Protein 6.1g/dL (6.4-8.4) Albumin 3.1g/dL (3.4-5.0) Discharge Medications Discharge Medications Docusate Sodium (Colace) 100 Mg Capsule 100 MG PO BID Prescribed by: BOGDAN THOMAS MD Lisinopril (Lisinopril) 20 Mg Tablet 20 MG PO DAILY (Reported) Metoprolol Tartrate (Metoprolol Tartrate) 50 Mg Tablet 50 MG PO DAILY (Reported ) Confirmed takes 1x/day per RX bottle Pravastatin (Pravastatin) 40 Mg Tablet 40 MG PO DAILY (Reported) Takes in AM Spironolactone (Spironolactone) 25 Mg Tablet 12.5 MG PO DAILY (Reported) Torsemide (Torsemide) 20 Mg Tablet 10 MG PO DAILY (Reported) Warfarin Sodium (Warfarin Sodium) 5 Mg Tablet 5 MG PO DAILY (Reported) As needed ([Acetaminophen]) 325 MG TABLET 650 MG PO Q6H PRN PRN Mild Pain (1-3) or Headache Prescribed by: BOGDAN THOMAS MD Nitroglycerin SL (Nitrostat) 0.4 Mg Tab.subl 0.4 MG SL Q5MIN PRN PRN For Chest Pain IF SBP > 90 Prescribed by: MINESH GAMBOA MD Followup Plan Disposition: Patient is being transferred to a rehabilitation center today. Discharge Diet: Heart Healthy Discharge Activity: Other (Non-weight bearing with toe touching right lower extremity only) Follow-up Provider: Phill Knutson MD Follow-up with PCP in: 1 week Provider: Neil Vasquez MD Follow-up in: 1 week (For Ortho follow up) Time spent Time spent on discharging this patient was greater than 35 minutes, over half of which was involved in counseling and coordination of care. Anand Thomas MD Dec 23, 2016 20:36
[2017-02-07] MEDS ORDERED: WARF4TAB6 PO (17:15)
[2017-02-07] MEDS ORDERED: OXYC1TAB24 PO (17:15)
[2017-02-07] MEDS ORDERED: METO25TA6 PO (17:15)
[2017-02-07] MEDS ORDERED: WARF3TAB7 PO (17:15)
[2017-02-07] MEDS ORDERED: LISI2.5T PO (17:15)
[2017-02-08] MEDS ORDERED: ACET325T51 PO (14:56)
[2017-02-08] MEDS ORDERED: LISI2.5T PO (14:56)
[2017-02-08] MEDS ORDERED: PRAV40TA PO (14:56)
[2017-02-08] MEDS ORDERED: METO25TA6 PO (14:56)
[2017-02-08] MEDS ORDERED: SPIR25TA3 PO (14:56)
[2017-02-08] MEDS ORDERED: WARF3TAB7 PO (14:56)
[2017-02-08] MEDS ORDERED: WARF4TAB6 PO (14:56)
[2017-02-08] MEDS ORDERED: DOCU-41 PO (14:56)
[2017-02-08] MEDS ORDERED: NITR0.4T6 SL (14:56)
[2017-02-08] MEDS ORDERED: TORS10TA5 PO (14:56)
[2017-02-08] MEDS ORDERED: OXYC-388 PO (14:56)
== END 2016-12-23 15:10 | DRG 481 ==
LOC: SED 13:35 → EDBD 13:35 → EDUNIT# 13:35 → OSC 18:22
PROVIDERS: ADMIT Internal Medicine; ATTEND Internal Medicine
PROC: 0QS634Z Reposition Right Upper Femur with Internal Fixation Device, Percutaneous Approach (ICD-10-PCS; principal; 2016-12-20 16:30)
DX: S72.011A Unspecified intracapsular fracture of right femur, initial encounter for closed fracture (principal); I50.42 Chronic combined systolic (congestive) and diastolic (congestive) heart failure; E85.4 Organ-limited amyloidosis; I43 Cardiomyopathy in diseases classified elsewhere; E78.5 Hyperlipidemia, unspecified; Z79.01 Long term (current) use of anticoagulants; W01.190A Fall on same level from slipping, tripping and stumbling with subsequent striking against furniture, initial encounter; Y92.511 Restaurant or cafe as the place of occurrence of the external cause; Y99.8 Other external cause status; I48.2 Chronic atrial fibrillation; I69.320 Aphasia following cerebral infarction; I27.2 Other secondary pulmonary hypertension; I10 Essential (primary) hypertension; Z72.0 Tobacco use

== ENCOUNTER 2017-01-11 11:33 | Emergency (ER) | payer MEDICARE ==
[~2017-01-11 11:33] MED LIST changes: -ACET1TAB42 PO; +Acetaminophen PO; +DOCU-41 PO; +LISI-567 PO; -LISI40TA PO
[2017-01-11 11:45] VITALS: BP 115/93; PULSE 63; RESP 22; O2SAT 95
--- NOTE | 2017-01-11 11:57 | ED.REPORT ---
HPI-Extremity Problem Lower Date of Service Jan 11, 2017 ED Provider: Jin Celestin MD 86 year old male with a history of hyperlipidemia, CHF, atrial fibrillation, and CVA presents to the ER via EMS accompanied by his daughter complaining of several days of right lower extremity pain. Pain is exacerbated by straightening of the leg. Per daughter, patient has been engaging in both physical and occupational therapy following his right hip surgery three weeks ago, and is currently non-weightbearing. Patient denies chest pain, SOB, and cough. History is limited due to patient's residual deficits from prior CVA, and the daughter is a poor historian. Nursing Notes Stated Complaint: RIGHT CALF PAIN Chief Complaint: Extremity Trauma Nursing Notes Reviewed: Yes Allergies: Coded Allergies: No Known Allergies (Verified Allergy, Unknown, 01/11/17) Scheduled Docusate Sodium (Colace) 100 Mg Capsule 100 MG PO BID Lisinopril (Lisinopril) 20 Mg Tablet 20 MG PO DAILY Metoprolol Tartrate (Metoprolol Tartrate) 50 Mg Tablet 50 MG PO DAILY Confirmed takes 1x/day per RX bottle Pravastatin (Pravastatin) 40 Mg Tablet 40 MG PO DAILY Takes in AM Spironolactone (Spironolactone) 25 Mg Tablet 12.5 MG PO DAILY Torsemide (Torsemide) 20 Mg Tablet 10 MG PO DAILY Warfarin Sodium (Warfarin Sodium) 5 Mg Tablet 5 MG PO DAILY Scheduled PRN ([Acetaminophen]) 325 MG TABLET 650 MG PO Q6H PRN PRN Mild Pain (1-3) or Headache Nitroglycerin SL (Nitrostat) 0.4 Mg Tab.subl 0.4 MG SL Q5MIN PRN PRN For Chest Pain IF SBP > 90 General Time Seen by MD: 11:57 Chief Complaint Leg injury right Hx Obtained From: Patient, Daughter Arrived By: Ambulance Onset Occurred: Onset unknown ("several days") Symptom Duration: Since onset Location: : Leg right Quality: Painful Severity: Current: Moderate Severity: Maximum: Severe Pertinent Negative: Pt denies other symptoms Exacerbated by: Range of motion Pertinent Negative: Relieved by nothing Recent Healthcare: Recent doctor visit Similar Sx Previous: No Risk-Extremity Prob Lower Well's Criteria for DVT Immob lower ext (1), Bed >3d/Surg in 4wks (1) Well's DVT Score: 1-2 pts (mod risk 33%) Past Medical History Past Medical History 1. 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 Received TPA and had resultant RUE paresis which improved. 2. 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 Hyperlipidemia 4. Atrial fibrillation 5. RBBB and Left anterior bifascicular block 6. Congestive heart failure 7. History of aortic stenosis Past Surgical History Left hip Replacement Surgery Reports: Appendectomy Smoking History Current Some Day Smoker Social History Alcohol Use: Denies alcohol use Drug Use: Denies drug use Other Social History: Good social support, Local resident Ambulatory Status Independent Review of Systems Constitutional: Denies: Chills, Fever Musculoskeletal: Reports: Extremity pain (Right, Lower), Denies: Extremity swelling Complete sys rev & neg: except as marked. Respiratory: Denies: Non-productive cough, Shortness of breath Cardiovascular: Denies: Chest pain Physical Exam Initial Vital Signs Vital Signs (First) Date Time Temp Pulse Resp B/P Pulse Ox O2 Delivery O2 Flow Rate FiO2 01/11/17 11:45 36.6 63 22 115/93 95 Room Air Initial VS: Reviewed Head / Eyes: Atraumatic, Normocephalic Neck: Supple, Non-tender, Full range of motion Skin: Warm, Dry, No cyanosis Neurologic: Alert, Oriented, Nonfocal Lower Extremity / Pelvis / MS: Inspection NL, Full range of motion, No swelling , Non-tender, No erythema, No deformity, Neurologic intact, Vascular intact, No edema Ankle / Foot: Inspection NL, Full range of motion, No swelling, No erythema, Non-tender, No deformity, Neurologic intact, Vascular intact Respiratory / Chest: Breath sounds NL, Breath sounds = bilat, No respiratory distress, No rales, No rhonchi, No wheezing Cardiovascular: Heart rate NL, Regular rhythm Heart Sounds / Murmur: Positive: Systolic murmur present.. (II/) Interpretation & Diagnostics X-Ray Interpretation Xray Interpretation: No fracture. X-Ray Ordered: Knee right Interpretation / Wet Read by: Wet read ED physician Xray Interpretation: No fracture. X-Ray Ordered: Pelvis, Hip right Interpretation / Wet Read by: Wet read ED physician US Soft Tissue/Musculoskeletal RIGHT LOWER EXTREMITY: No clot present on ultrasound. Exam Performed by: Allied health pract Exam Type: Diagnostic Clinical Category: Symptom-based Re-Eval/Medical Decision Source of Hx: Old records, Family Re-Evaluation/Progress : Time of Eval: 14:47 Re-Evaluation/Progress Note: Discussed lab and radiology results and plan to discharge. Patient is amenable to the plan. Return precautions given. All other questions addressed. Counseled Regarding: Diagnosis, Lab results, Need for follow-up, When/why to return to ED Discharge & Departure Impression: Primary Impression: Leg pain Disposition: Home Discharge Condition All VS Reviewed: Yes Condition: Stable Additional Instructions: Your workup today was reassuring. I do not believe that there is any dangerous cause for your symptoms at this time. The x-ray does not indicate any fractures, and no clots were present on ultrasound. Call your orthopedist to arrange a follow-up appointment for next week. Return to the ER if you develop new or worsening pain, swelling of the leg, fever, chills, chest pain, shortness of breath, or any other concerning symptoms. Referrals: Phill Knutson MD (PCP) Jaydonibe Attestation Portions of this note were transcribed by Josse Block. I, Dr. Celestin, personally performed the history, physical exam and medical decision-making; I reviewed and confirmed the accuracy of the information in the transcribed note. Signed by: Chilango Bee, 01/11/2017 and 14:52 copies to: Phill Knutson MD, Kirk H MD Jan 11, 2017 11:57 JOSSE BLOCK Jan 11, 2017 12:05
--- NOTE | 2017-01-11 14:56 | DRSVH ---
PROCEDURE: US VEINOUS LEG DUPLEX UNILATERAL, RIGHT INDICATIONS: right leg pain TECHNIQUE: Real-time imaging, as well as color and pulse Doppler interrogation, were performed of the lower extr emity deep veins from the inguinal ligament to the popliteal fossa. COMPARISON: , US, US VENOUS LEG DPLX BILAT, 06/22/2016, 17:38. FINDINGS: The deep veins are normally compressible, and free of intraluminal thrombus. Color and pu lse Doppler demonstrate normal phasic intraluminal flow. There is normal augmentation response to di stal compression maneuver. IMPRESSION: No deep venous thrombosis in the right lower extremity. Dictated by: Wendy Sanchez M.D. on 01/11/2017 at 14:53 Approved by: Wendy Sanchez M.D. on 01/11/2017 at 14:54
--- NOTE | 2017-01-11 15:03 | DRSVH ---
PROCEDURE: X-RAY RIGHT KNEE, THREE VIEWS ([id number]) INDICATIONS: RIGHT KNEE PAIN TECHNIQUE: 5 views of the knee were acquired. COMPARISON: [facility], , KNEE 3VW (RT), 09/07/2014, 11:21. FINDINGS: Bones: No fractures or dislocations. No suspicious bony lesions. Soft tissues: Small joint effusion. Vascular calcifications consistent with atherosclerosis. IMPRESSION: No fracture or dislocation. If clinical symptoms persist or clinical suspicion for patho logy is high, a repeat examination in 7-10 days, or advanced imaging such as CT or MRI is suggested f or further evaluation. Dictated by: Wendy Sanchez M.D. on 01/11/2017 at 14:58 Approved by: Wendy Sanchez M.D. on 01/11/2017 at 15:01
--- NOTE | 2017-01-11 15:09 | DRSVH ---
PROCEDURE: X-RAY PELVIS W/LAT HIP (RT) ([id number]) INDICATIONS: RECENT HIP SURGERY TECHNIQUE: AP pelvis with lateral view(s) of the both hip(s). COMPARISON: [facility], CT, CT HIP RT WO CON, 12/19/2016, 17:19. [facility], CR, XR PELVIS W LATERAL HIP LT, 07/28/2015, 20:02. [facility], CR, XR PELVIS W LATERAL HIP RT, 12/20/2016, 18:31. FINDINGS: Bones: No acute fractures or dislocations. There are 3 surgical pins within the right femoral neck 4 internal fixation of right femoral neck fracture. There is a left hip prosthesis. Pelvic ring appea rs intact. No suspicious bony lesions. Soft tissues: The visualized bowel gas pattern is normal. Heterotopic soft tissue calcifications in the left thigh. IMPRESSION: 1. No acute fracture or dislocation. 1. Open reduction and internal fixation of right femoral neck fracture. 3. Left hip arthroplasty with prosthesis in anatomic alignment. Dictated by: Wendy Sanchez M.D. on 01/11/2017 at 15:02 Approved by: Wendy Sanchez M.D. on 01/11/2017 at 15:08
[2017-01-11 15:28] VITALS: BP 98/59; PULSE 64; RESP 17; O2SAT 97
[2017-02-07] MEDS ORDERED: OXYC1TAB24 PO (17:15)
[2017-02-07] MEDS ORDERED: METO25TA6 PO (17:15)
[2017-02-07] MEDS ORDERED: LISI2.5T PO (17:15)
[2017-02-07] MEDS ORDERED: WARF4TAB6 PO (17:15)
[2017-02-07] MEDS ORDERED: WARF3TAB7 PO (17:15)
[2017-02-08] MEDS ORDERED: DOCU-41 PO (14:56)
[2017-02-08] MEDS ORDERED: METO25TA6 PO (14:56)
[2017-02-08] MEDS ORDERED: WARF3TAB7 PO (14:56)
[2017-02-08] MEDS ORDERED: WARF4TAB6 PO (14:56)
[2017-02-08] MEDS ORDERED: NITR0.4T6 SL (14:56)
[2017-02-08] MEDS ORDERED: PRAV40TA PO (14:56)
[2017-02-08] MEDS ORDERED: OXYC-388 PO (14:56)
[2017-02-08] MEDS ORDERED: TORS10TA5 PO (14:56)
[2017-02-08] MEDS ORDERED: SPIR25TA3 PO (14:56)
[2017-02-08] MEDS ORDERED: ACET325T51 PO (14:56)
[2017-02-08] MEDS ORDERED: LISI2.5T PO (14:56)
== END 2017-01-11 15:09 | disposition home or self-care (01) ==
LOC: EDUNIT# 11:33 → SED 11:33 → EDBD 11:33 → SED 15:09
DX: M79.604 Pain in right leg (principal); E78.5 Hyperlipidemia, unspecified; I50.9 Heart failure, unspecified; I48.91 Unspecified atrial fibrillation; I45.10 Unspecified right bundle-branch block; F17.200 Nicotine dependence, unspecified, uncomplicated; Z86.73 Personal history of transient ischemic attack (TIA), and cerebral infarction without residual deficits; Z98.890 Other specified postprocedural states; Z79.01 Long term (current) use of anticoagulants

== ENCOUNTER 2017-02-12 11:29 | Inpatient (IN) | payer MEDICARE ==
--- NOTE | 2017-02-08 15:36 | PCM.ANEPRE ---
Anesthesia Pre-Op Review Reason for Review: critical aortic stenosis, question of cardiac amyloidosis Anesthesia Recommendations: Proceed with Procedure Additional Comments The patient has significant cardiac and pulmonary abnormalities that place him at higher risk for complications from surgery and anesthesia. 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 EF is 40%. He has severe aortic stenosis, ALIYA 1cm2. Mild-mod AI, mod MR, mod pulmonary hypertension, PA systolic 49mhg. Chronic a-fib, RBBB, LAFB. h/o CVA. Last cardiac catheterization in Jun 2016. PFTs show moderate restrictive pattern and severe reduction in diffusion capacity. On home O2 at night. He fell and broke his right hip in November, and tolerated a general anesthetic with LMA for hip pinning. Unfortunately his hip is not healing and he presents for conversion to jacque-arthroplasty. The patient certainly has had a full workup for his cardiopulmonary conditions. He will need to be evaluated on day of surgery to make sure he doesn't have any active unstable conditions, such as unstable heart failure. His quality of life is greatly inhibited until he can get his hip repaired. Recommend proceeding with consideration of invasive monitoring. Josr Farias MD Feb 08, 2017 15:36
[2017-02-12] VITALS (9 sets, daily range): BP systolic 99–111; BP diastolic 46–76; PULSE 52–76; RESP 14–21; O2SAT 97–100
[~2017-02-12] VITALS: Ht 175.3 cm; Wt 63.5 kg
[2017-02-12] MEDS: Lactated Ringer's 1,000 ML IV SCH ×4 (11:14→20:24)
[~2017-02-12 11:29] MED LIST changes: +ACET325T51 PO; -Acetaminophen PO; +CeFAZolin Inj 2 GM in IV Premix 1 EACH IV ONE; +Dexamethasone 4 mg/mL Inj IVPUSH PRN; +EPHEDrine Sulfate 50 mg/mL Inj IVPUSH PRN; +HYDROmorphone 1 mg/mL Inj IVPUSH PRN; -LISI-567 PO; +LISI2.5T PO; +Labetalol 5 mg/mL 4 mL Inj IV PRN; +Lactated Ringer's 500 ML IV PRN; +METO25TA6 PO; -METO50TA3 PO; +MetoCLOpramide 5 mg/mL 2 mL Inj IVPUSH PRN; -NITR0.4T SL; +NITR0.4T6 SL; +OXYC-388 PO; +Ondansetron 2 mg/mL 2 mL Inj IVPUSH PRN; +Phenylephrine 10,000 mCg/mL Inj IVPUSH PRN; +TORS10TA5 PO; -TORS20TA3 PO; +WARF3TAB7 PO; +WARF4TAB6 PO; -WARF5TAB7 PO; +fentaNYL-PF 50 mCg/mL 2 mL Inj IVPUSH PRN
[2017-02-12] MEDS ORDERED: CeFAZolin Inj 2 gm / 50mL D5W IV ONE (11:36)
[2017-02-12 12:44] LABS: INR 1.55 ratio
[2017-02-12] MEDS ORDERED: Ketamine 10 mg/mL 20 mL Inj ONE (13:22)
[2017-02-12] MEDS ORDERED: MeTOProlol 1 mg/mL 5 mL Inj ONE (13:22)
[2017-02-12] MEDS ORDERED: Phenylephrine/NS 100 mCg/mL 10 mL Syringe IVPUSH ONE (13:22)
[2017-02-12] MEDS ORDERED: Propofol 10,000 mCg/mL 20 mL Inj ONE (13:22)
[2017-02-12] MEDS ORDERED: fentaNYL-PF 50 mCg/mL 2 mL Inj ONE (13:22)
[2017-02-12] MEDS ORDERED: Tranexamic Acid 100 mg/mL 10 mL Inj ONE (14:01)
[2017-02-12] MEDS ORDERED: 0.9% Sodium Chloride 100 ML ONE (14:01)
[2017-02-12] MEDS ORDERED: Vancomycin Inj 1,000 MG in IV Premix 1 EACH IV ONE (14:25)
--- NOTE | 2017-02-12 14:42 | PCM.HPANE ---
Patient Data Surgeon Admitting Provider: Attending Provider:Neil Dominguez DO Primary Care Physician:Phill Knutson MD Other Provider:Madelin Brink Anesthesia Reason for Visit Femoral Neck Non Union Fracture Right Ht/WT & BMI Height (Feet): 5 Height (Inches): 9.00 Weight (Kilograms): 63.5 Body Mass Index 20.00 Allergies Coded Allergies: No Known Allergies (Verified Allergy, Unknown, 01/11/17) Past Anesthesia History Anesthesia History: Denies:: Anesthesia Reactions Diabetes History Hx Diabetes?: No MRSA MRSA: No Medications Blood Thinner: Coumadin Hypertension Medication: No Home Meds Incl Beta Piyuhs: No Date Beta Piyush Taken: Jan 30, 2017 Time Beta Piyush Taken: 0900 Reported Medications Warfarin Sodium 3 Mg Tablet3 Mg PO Q2DAY 30 Days Ref 0 alternates with 4mg q2d 02/08/17 Warfarin Sodium 4 Mg Tablet4 Mg PO Q2DAY 30 Days Ref 0 alternates with 3mg q2d 02/08/17 Lisinopril 2.5 Mg Tablet2.5 Mg PO DAILY 30 Days Ref 0 02/08/17 Torsemide 10 Mg [id number] Mg PO Q2DAY 30 Days Ref 0 02/08/17 oxyCODONE-Aspirin 5-325 mg 1 Each Tablet0.5 Tablet PO Q6H PRN For Pain Ref 0 02/08/17 Metoprolol Tartrate 25 Mg Lhpczs79 Mg PO DAILY 30 Days Ref 0 02/08/17 Acetaminophen 325 Mg [id number] Mg PO Q6H PRN For Pain Ref 0 02/08/17 Nitroglycerin SL 0.4 Mg Tab.subl0.4 Mg SL PRN For Chest Pain 02/08/17 Docusate Sodium (Colace)100 Mg Zkrlqpv089 Mg PO BID PRN For Constipation Ref 0 02/08/17 Pravastatin 40 Mg Mgnnxp07 Mg PO DAILY Ref 0 02/08/17 Spironolactone 25 Mg Uktees90 Mg PO DAILY #30 TABLET Ref 0 02/08/17 Discontinued Reported Medications Warfarin Sodium 4 Mg Tablet4 Mg PO ALTER W/3MG EOTHDAY Ref 0 02/07/17 Warfarin Sodium 3 Mg Tablet3 Mg PO ALTER W/4MG EOTHDAY 30 Days Ref 0 02/07/17 Lisinopril 2.5 Mg Tablet2.5 Mg PO DAILY Ref 0 02/07/17 oxyCODONE-Acetaminophen 5-325 mg 1 Each Tablet0.5 Tab PO Q6HRS PRN For Pain Ref 0 02/07/17 Metoprolol Tartrate 25 Mg Cmsynw12 Mg PO DAILY Ref 0 02/07/17 Torsemide 20 Mg Szuqcz35 Mg PO EVERY OTH DAY Ref 0 12/04/16 Spironolactone 25 Mg Rshwby43.5 Mg PO DAILY Ref 0 12/04/16 Pravastatin 40 Mg Umjciq57 Mg PO DAILY Ref 0 Takes in AM 07/28/15 Lisinopril 20 Mg Srjddt78 Mg PO DAILY 30 Days Ref 0 12/19/16 Metoprolol Tartrate 50 Mg Rfnkbc94 Mg PO DAILY 30 Days Ref 0 Confirmed takes 1x/day per RX bottle 11/08/16 Warfarin Sodium 5 Mg Tablet5 Mg PO DAILY 30 Days Ref 0 06/22/16 Discontinued Scripts Docusate Sodium (Colace)100 Mg Tubkhtu117 Mg PO BID #60 CAPSULE Prov:Anand Thomas MD 12/23/16 [Acetaminophen] (Tylenol)325 MG TABLET No Conflict Joifm997 Mg PO Q6H PRN Mild Pain (1-3) or Headache Prov:Anand Thomas MD 12/23/16 Nitroglycerin SL (Nitrostat)0.4 Mg Tab.subl0.4 Mg SL Q5MIN PRN For Chest Pain IF SBP > 90 #25 TABLET Ref 0 Prov:Shyla Clarke MD 06/26/16 History History of ENT Problems?: No HEENT History: Positive for:: Cataracts (Beginging) Dysphagia (after CVA 2012) Denture Type: None Teeth Condition: Within Normal Limits Hx of Heart Problems?: Yes Cardiovascular History: Positive for:: Chest Pain Congestive Heart Failure (hx of) Heart Murmur Hypertension Irregular Heartbeat (A-Fib) Valvular Heart Disease (severe aortic stenosis- ef 40-45% poss amyloidosis) Hx of Respiratory Problem?: Yes Respiratory History: Positive for:: Oxygen Administration Other Resp Pertinent History: moderate pulmonary hypertension Hx Neurologic Problems?: Yes Neurological History: Positive for:: CVA (two strokes mumbled speech) Dizziness Hx of GI Problems?: No Gastrointestinal History: Positive for:: Heartburn Other GI Pertinent History: none Hx of Problems?: No Genitourinary History: Denies:: HX of Hemodialysis Kidney Stones Urinary Tract Infection HX of Peritoneal Dialysis: No Male Hx: Denies:: Prostate Problems Scrotal Mass Testicular Surgery Skin History: Positive for:: History Skin Disorders? (Psoarsis) Denies:: Pressure Ulcers Hx Musculoskeletal Problems?: Yes Musculoskeletal History: Positive for:: Joint Replacement (Left partial hip replacement) Musculoskeletal Trauma (right hip pinning 11/2016-non union current admission problem) Hx of Psycho/Social Problems?: No Psycho Social History: Positive for:: Anxiety Other Psych Pertinent History: none Hx Surgeries?: Yes (Left partial replacement hip (2015), cardiac cath (2016)) Hx Any Other Health Problems?: Yes Other History: Positive for:: Hospitalization (Broke his left hip) Denies:: Cancer Endocrine Disease Thyroid Disease History Blood Transfusions: Denies:: Blood Transfuse Reaction Blood Transfusions Hx Diabetes: No Hx Alcohol Use: Yes (Quit drinking 33 years ago)Hx Substance Use: No Smoking Status: Never Smoker Have You Smoked inLast 12 mo: No Stop/Bang Treated for Sleep Apnea?: No Do You Have a CPAP Machine?: No S-Snoring: Do You Snore Loudly: Yes T-Tired: feel tired, fatigued: Yes O-Obsered: Observed not breath: No P-Blood Pressure: treated: Yes B- Body Mass Index > 35 kg/m2: No A- Age over 50: Yes N- Neck Large Circumference: No G- Gender Male: Yes VICENTA Total Score: 5 VICENTA Risk Assessment: Low Risk, <3 Yes Risk Assessment Category Category 1A: Patient has history of documented sleep apnea, and HAS NOT received any narcotic, sedative or anesthesia administration during this stay. Category 1B: Patient has history of documented sleep apnea, and HAS received any narcotic , sedative or anesthesia administration during this stay Category 2: Patient has SUSPECTED Obstructive Sleep Apnea, and HAS received any narcotic , sedative or anesthesia administration during this stay. Category 3: Patient has SUSPECTED Obstructive Sleep Apnea and HAS NOT received narcotic, sedative or anesthesia administration during this stay. Category 4: Outpatient in Procedural Areas with known sleep apnea or who screen positive for High Risk via the STOP/BANG questionnaire. Exam Exam Vital Signs Vital Signs Date Time Temp Pulse Resp B/P Pulse Ox O2 Delivery O2 Flow Rate FiO2 02/12/17 12:15 36.1 52 18 104/60 97 Room Air General Appearance: Oriented X3 HEENT/AIRWAY: MP 2 Lungs: Normal Air Movement Heart: Regular Rate/Rhythm Meds/Labs/Diagnostics Admission Meds Current Medications Lactated Ringer's (Lr) 1,000 ml @ 120 mls/hr Q8H20M IV Last administered on t 11:34; Start 02/12/17 at 08:06; Stop 02/12/17 at 16:05 Labs Test 02/12/17 12:00 Prothrombin Time 16.7sec (8.1-12.5) Prothromb Time International Ratio 1.55ratio Plan Impression Patient chart reviewed, patient interviewed and anesthestic plan with risks, benefits, and alternatives discussed, and informed consent obtained. ASA Physical Status: ASA4 Life Threatening Anesthetic Plan: GA, Regional Block, Ultra Sound, SAB Bene/Risks/Altern/Consents: Yes HP Complete Prior to Induction: Yes Sloan Boston MD Feb 12, 2017 14:42
[2017-02-12] MEDS ORDERED: Bupivacaine Liposome 1.3% 20 mL Inj ONE (14:56)
[2017-02-12] MEDS ORDERED: Bupivacaine Liposome 1.3% 20 mL Inj INFILTRATE ONE (14:59)
[2017-02-12] MEDS ORDERED: 0.9% Sodium Chloride 10 mL Inj INFILTRATE ONE (14:59)
[2017-02-12] MEDS ORDERED: Bupivacaine-MPF 0.5% W/EPI 30 mL Inj INFILTRATE ONE (14:59)
[2017-02-12] MEDS ORDERED: Magnesium Hydroxide 10 mL Oral Concentration PO PRN (17:05)
[2017-02-12] MEDS ORDERED: HYDROmorphone 0.5 mg/0.5 mL iSecure Syringe IVPUSH PRN (17:05)
[2017-02-12] MEDS ORDERED: Acetaminophen IV 1,000 MG in IV Premix 1 EACH IV PRN (17:05)
[2017-02-12] MEDS ORDERED: Ondansetron 2 mg/mL 2 mL Inj IVPUSH PRN (17:05)
[2017-02-12] MEDS ORDERED: diphenhydrAMINE 25 mg Capsule PO PRN (17:05)
[2017-02-12] MEDS ORDERED: Polyethylene Glycol (PEG) 17 Gm Powder PO PRN (17:05)
--- NOTE | 2017-02-12 17:05 | PCM.ANEP1 ---
Post Anesthesia Phase 1 PACU Phase 1 Assessment Vital Signs Vital Signs Date Time Temp Pulse Resp B/P Pulse Ox O2 Delivery O2 Flow Rate FiO2 02/12/17 17:00 36.5 76 15 111/76 100 Simple Mask 8 02/12/17 12:15 36.1 52 18 104/60 97 Room Air Anesthetic Administered: GA Level of Alertness: Sleepy, easy to arouse Pain: No Nausea or Vomiting: No Cardiovascular Function and Hy: No Oxygen Delivery: Room Air Lungs: Normal Air Movement Sloan Boston MD Feb 12, 2017 17:05
[2017-02-12 17:19] LABS: APPEARANCE,URINE CLEAR (CLEAR,HAZY); COLOR,URINE YELLOW (YELLOW); OCCULT BLOOD,URINE TRACE (NEGATIVE); UROBILINOGEN,URINE NORMAL (NORMAL)
--- NOTE | 2017-02-12 17:58 | DRSVH ---
PROCEDURE: X-RAY PELVIS W/LAT HIP (RT) ([id number]) INDICATIONS: POST OP TECHNIQUE: AP pelvis and lateral view of the right hip acquired. COMPARISON: [facility], CR, XR PELVIS W LATERAL HIP RT, 01/28/2017, 10:01. [facility], CR, XR PELVIS W LATERAL HIP RT, 01/11/2017, 13:25. FINDINGS: Bones: Patient is status post right total hip arthroplasty, with hardware components in expected pos itions. The hip joint appears congruent. The visualized bony structures appear intact. Soft tissues: Overlying postoperative changes are noted. No suspicious soft tissue densities. IMPRESSION: Normal alignment immediately after right total hip arthroplasty, prior left total hip ar throplasty from the distant past. Dictated by: Nash Trammell M.D. on 02/12/2017 at 17:55 Approved by: Nash Trammell M.D. on 02/12/2017 at 17:56
[2017-02-12] MEDS: 0.9% Sodium Chloride 1,000 ML IV SCH (18:49)
--- NOTE | 2017-02-12 19:27 | NUR ---
Post op Pt arrived on bed at 1812. No c/o pain, burning or numbness. A&O x 3, MISHRA, BP is 99/66, but family states this is normal for pt. On 3L NC, sating at 94% on PEDIATRIC SPEECH LANGUAGE PATHOLOGIST. SCD's on left leg and IV fluids connected to right forearm IV, peerz in place and draining to gravity. Dressing is C,D&I and ice pack is in place. Bilateral weak pedal pulses and feet are cold. MD notified and states this is normal for pt, also okay with low BP. Pt oriented to room, bed and call light. Pt would like water and ice cream and diet is AAT. Family states pt has no hx of difficulty swallowing despite multiple strokes. Bed in low, call light in reach.
--- NOTE | 2017-02-12 19:47 | PCM.CHPMED ---
Subjective Date of Service: Feb 12, 2017 Provider requesting consult: Neil Dominguez DO Primary Physician: Admitting Physician: Neil Dominguez DO Primary Care Physician: Phill Knutson MD Attending Physician: Neil Dominguez DO Chief Complaint: Chief Complaint: Consultation request by Dr. Neil Dominguez for assistance with management of severe aortic stenosis and atrial fibrillation. History of Present Illness: 86yoM with past medical history of CVA s/p TPA (2012) with residual expressive aphasia, CHFrEF (EF 40%), pulmonary hypertension, aortic stenosis, aortic and tricuspid regurgitation, atrial fibrillation on anticoagulation seen in consultation for multiple medical co-morbidities including aortic stenosis and atrial fibrillation following right hip conversion to jacque-arthroplasty following non-healing hip pinning. Patient was admitted 12/19 following a GLF at a restaurant with subsequent minimally displaced right femoral neck fracture. Readmission 02/12 following conversion to hemiarthroplasty. Patient is seen following procedure and is comfortable with no pain at this time. He is alert and oriented with no complaints. Vitals signs following procedure HR 58, RR 17, BP 99/66. 3L oxygen with saturation not documented. Post-op labs pending. Review of Systems: Complete review of systems has been obtained. Positive as per HPI otherwise negative PMH Past Medical History 1. 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 Received TPA and had resultant RUE paresis which improved. 2. 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 Hyperlipidemia 4. Hypertension 5. Atrial fibrillation 6. RBBB and Left anterior bifascicular block 7. Congestive heart failure with reduced ejection fraction 8. Aortic stenosis, moderate - severe 9. 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 Moderate pulmonary hypertension 11. Moderate tricuspid regurgitation 12. Mild to moderate aortic regurgitation Home Medications Current inpatient medications include NS 100cc/hr Bisacodyl supp Diphenhydramine Docusate Hydromorphone Magnesium hydroxide Ondansetron Oxycodone-APAP Polyethylene glycol Senna-docusate Sodium chloride flush Spironolactone Torsemide Warfarin dosed per pharmacy Home medications as per med rec reviewed by admission RN - patient does not know home medications acetaminophen 650 PO q6HR PRN Docusate 100mg po BID PRN Lisinopril 2.5 mg PO daily Metoprolol tart 25mg PO daily Nitro SL PRN Oxycodone ASA 5-325 0.5 PO q6PRN Pravastatin 40mg PO daily Spironolactone 25mg PO daily Torsemide 10mg PO q2day Warfarin Allergies: Coded Allergies: No Known Allergies (Verified Allergy, Unknown, 01/11/17) Family History Family History Patient is unable to tell me family history when asked Social History Hx Alcohol Use: Yes (Quit drinking 33 years ago)Hx Substance Use: NoHx Tobacco Use: No Smoking Status: Never Smoker Exam Vital Signs Vital Sign - Last Date Time Temp Pulse Resp B/P Pulse Ox O2 Delivery O2 Flow Rate FiO2 02/12/17 18:44 34.6 58 17 99/66 Nasal Cannula 3.00 02/12/17 17:58 99 Additional Information: General: Alert and Oriented x3, Cooperative, No acute Distress Eyes: PERRLA, Scleral Anicteric Mouth: Mouth Normal, Mucous Membranes moist/Joseph Neck: Supple, no Thyromegaly, trachea central. Chest & Lungs: CTA bilateral, good resp effort, no rhonchi, wheeze or rale Cardiovascular: Normal S1, Normal S2, 3/6 Murmur/Rubs/Gallops, Regular Rate/ Rhythm, (no JVD, no peripheral edema) Pulses: Radial (present and equal), Dorsalis Pedi (present and equal) Abdomen: Soft, Non-tender, Non-distended, Normoactive bowel tones. Musculoskeletal: unable to assess range of motion due to hip fx, no swollen or erythematous joints Extremities: no edema, no cyanosis, no clubbing. right lower extremity with dressing CDI, cold however pulses good, sensation intact Skin: No rashes. Warm and dry, no erythematous areas Neurological: Grossly neurologically intact, Normal Speech, Sensation Intact Lymphatic: Lymph nodes Cervical and Axillary not palpable. Assessment & Plan Assessment 86yoM with past medical history of CVA s/p TPA (2012) with residual expressive aphasia, CHFrEF (EF 40%), pulmonary hypertension, aortic stenosis, aortic and tricuspid regurgitation, atrial fibrillation on anticoagulation seen in consultation for multiple medical co-morbidities including aortic stenosis and atrial fibrillation following right hip conversion to jacque-arthroplasty following non-healing hip pinning. Right femoral non healing neck fracture s/p internal fixation and recent jacque- arthroplasty - Consult requested per Dr. Dominguez for multiple medical co-morbidities - Post-op day #1 - Anticoagulation per ortho, warfarin has been ordered for pharmacy to dose History of aortic stenosis, with a moderately severely dilated ascending and aortic arch, Atrial fibrillation, RBBB and Left anterior bifascicular block, and aortic stenosis. CHFrEF stable at this time - Cardiology was consulted during previous admission 12/19 - Will consider re-consultation given complexity of cardiac co-morbidities if patient should decompensate. At this time patient is stable. - Will review home medications. Patient does have low blood pressure following procedure. - Ok to continue torsemide and spironolactone, while closely monitoring BP / HR , restart metoprolol / lisinopril if BP remains stable and pt is not bradycardic - Consider discontinuation of mIVF when taking adequate PO, monitor closely for fluid overload History of Afib. rate controlled - Restart rate control medications when medically stable / appropriate ( metoprolol 25mg po daily, lisinopril 2.5mg daily) - Continue Coumadin dosing per pharmacy H/o CVA in 12/2012 with expressive aphasia. Received TPA at that time. - Patient is currently stable. Hyperlipidemia, chronic -restart pravastatin when taking PO Problems: Phyllis Arora DO Feb 12, 2017 19:47
[2017-02-12] MEDS: Senna-Docusate 8.6-50 mg Tablet PO SCH (20:25)
--- NOTE | 2017-02-12 21:26 | OP ---
[address] [address] OPERATIVE REPORT PATIENT: GANGA MONTILLA : 1930 MR#: [id number] ADMIT: 02/12/2017 JOB ID: [id number] DATE OF SURGERY: 02/12/2017 PREOPERATIVE DIAGNOSIS(ES): Right hip femoral neck nonunion. POSTOPERATIVE DIAGNOSIS(ES): Right hip femoral neck nonunion. PROCEDURE: Right hip conversion to hemiarthroplasty. SURGEON: Neil Dominguez DO. ANESTHESIA: LMA general. INDICATIONS: The patient is an 86-year-old male who fell, sustaining a right femoral neck fracture about seven weeks ago. This was treated with cannulated screws and he has had worsening pain. X-rays demonstrated nonunion with loss of reduction of the femoral neck due to a femoral neck nonunion. We discussed treatment options for this and he wished to proceed with a conversion and removal of screws, conversion to a hip hemiarthroplasty or possible total hip replacement. We discussed risks, benefits, and possible complications of surgery. All questions were answered and he and his daughters wished to proceed with surgery. A surgical resident was required for the successful completion of this procedure. PROCEDURE IN DETAIL: The patient was brought to the operating room. He was given a preoperative antibiotic, LMA general anesthetic. Placed comfortably into the lateral decubitus position. The right hip was sterilely prepped and drape. A surgical timeout was performed. An incision was made centered over the greater trochanter. I then angled the incision distally in order to incorporate his previous incision from the cannulated screws. Dissection was then carried through the subcutaneous tissue and the iliotibial band was incised longitudinally. The Charnley retractor was then placed. I then made a split into the vastus lateralis to try to get to his cannulated screws. However, I could not feel the screw heads and was having some difficulty locating them and therefore I elected to proceed with the approach to the hip. A split was then made in the gluteus medius between the junction of the anterior one-third and posterior two-thirds, and Hohmann retractors were placed on either side of the femoral neck. Next, an anterior sleeve of tissue was released off of the femoral neck. This was taken to a point to incorporate the split in the vastus lateralis distally and a triangular portion of capsule was removed. This was sent for culture. The hip was then carefully dislocated using a Cooper to help keep the head in place as we dislocated the hip. There was gross motion present at the fracture nonunion site. I then made a provisional neck cut with a saw down to the screws and then made a 2nd cut in the femoral head in order to access the cannulated screws. I then retrograde removed the screws from the proximal femur using the cannulated screwdriver and the pins. The head was also sized and felt to be a size 50 or 51 after removal of the head fragment and the screws. The femur was prepared beginning with a box osteotome. This was then sequentially broached up to a size 4, which had excellent fit and fill and a calcar planer was used to smooth the top of the femur. The acetabulum was sized and inspected and was free of any articular damage. I felt that a bipolar would be fine in this case and we did not need to do a full hip replacement and elected to use a size 50 bipolar head. I then washed and dried the canal, placed a cement restrictor distally and a [employer] [place] basic cemented stem was inserted. All excess cement was removed and the stem was held in the appropriate position while the cement was allowed to polymerize. I then reduced the hip with a 1.5, 28 bipolar head and 50 bipolar shell which allowed for excellent range of motion, equal leg lengths and great stability. These implants were chosen, impacted into position. The hip was again relocated and irrigated to remove any excess debris. The wound was then closed with #5 Ethibond to repair the capsule. The remainder of the gluteus medius and vastus lateralis was repaired with #1 Surgilon. The iliotibial band was repaired with #1 Surgilon and 0-Vicryl. The subcu was closed with 2-0 and 3-0 Vicryl and the skin was closed with a running subcuticular 300 V-Love suture. A mixture of Marcaine saline and Exparel was used as an adjunct local anesthetic and sterile dressings were applied. Patient tolerated the procedure well. BLOOD LOSS: Was 100 cc. POSTOPERATIVE PROTOCOL: Have the patient weightbear to tolerance. Use a walker for ambulation. Will have him restart on Coumadin and consult the hospitalist regarding perioperative medical management.
[2017-02-12 21:56] LABS: BASOPHILS % (AUTO) 0.2 % (0-3); EOSINOPHILS % (AUTO) 0.4 % (0-5); MONOCYTES % (AUTO) 8.4 % (4-12); Mean Corpuscular Hemoglobin 28.8 pg (27.0-35.0); Mean Corpuscular Volume 91.4 fL (81-100); Platelet Count 330 bil/L (150-400)
--- NOTE | 2017-02-12 22:46 | PCM.CONPHA ---
Subjective Date of Service: Feb 12, 2017 Requesting Provider: Neil Dominguez DO Consultation request by Dr. Neil Dominguez for assistance with management of severe aortic stenosis and atrial fibrillation. Reason for Pharmacy Consult: Anticoagulation Management Objective Vital Signs Date Time Temp Pulse Resp B/P Pulse Ox O2 Delivery O2 Flow Rate FiO2 02/12/17 18:44 34.6 58 17 99/66 Nasal Cannula 3.00 02/12/17 18:20 Supplement Oxygen 02/12/17 17:58 66 15 104/68 99 Nasal Cannula 2 02/12/17 17:46 65 19 107/60 99 Nasal Cannula 2 02/12/17 17:34 71 21 107/46 100 Nasal Cannula 2 02/12/17 17:29 68 16 102/63 100 Nasal Cannula 2 02/12/17 17:21 68 15 102/58 99 Simple Mask 8 02/12/17 17:15 72 14 103/66 100 Simple Mask 8 02/12/17 17:05 Room Air 02/12/17 17:00 36.5 76 15 111/76 100 Simple Mask 8 02/12/17 12:15 36.1 52 18 104/60 97 Room Air Weight (Kilograms): 63.5 Height (Feet): 5 Height (Inches): 9.00 Test 02/12/17 12:00 02/12/17 17:04 02/12/17 21:50 Prothrombin Time 16.7sec (8.1-12.5) Prothromb Time International Ratio 1.55ratio Urine Color Yellow (YELLOW) Urine Appearance Clear (CLEAR,HAZY) Urine pH 6.0 (5.0-8.0) Urine Specific [place] N (1.003-1.035) Urine Protein Negativemg/dL (NEG,TRACE) Urine Glucose (UA) Negativemg/dL (NEGATIVE) Urine Ketones Negativemg/dL (NEGATIVE) Urine Occult Blood Trace (NEGATIVE) Urine Nitrite Negative (NEGATIVE) Urine Bilirubin Negative (NEGATIVE) Urine Urobilinogen Normalmg/dL (NORMAL) Urine Leukocyte Esterase Negative (NEGATIVE) Urine RBC 0-2/hpf (0-2) Urine WBC 0-5/hpf (0-5) Urine Epithelial Cells Few/hpf (NONE-MOD) Urine Crystals None seen (NONE SEEN) Urine Bacteria Few/hpf (NONE-FEW) Urine Hyaline Casts None/lpf (NONE) Urine Granular Casts None seen (NONE SEEN) Urine Waxy Casts None seen (NONE SEEN) Urine Red Blood Cell Casts None seen (NONE SEEN) Urine White Blood Cell Casts None seen (NONE SEEN) Urine Mucus None seen (None Seen) Urine Trichomonas None seen (NONE SEEN) Urine Yeast None (NONE SEEN) Urinalysis Comment None Urine Culture Reflexed Not indicated White Blood Count 12.8th/mm3 (3.8-10.1) Red Blood Count 3.71mil/mm3 (4.40-5.80) Hemoglobin 10.7g/dL (13.8-17.2) Hematocrit 33.9% (41.0-50.0) Mean Corpuscular Volume 91.4fL (81-100) Mean Corpuscular Hemoglobin 28.8pg (27.0-35.0) Mean Corpuscular Hemoglobin Concent 31.6% (32.0-37.0) Red Cell Distribution Width 19.0% (12.3-15.4) Platelet Count 330bil/L (150-400) Neutrophils (%) (Auto) 85.0% (40-74) Lymphocytes (%) (Auto) 5.6% (14-46) Monocytes (%) (Auto) 8.4% (4-12) Eosinophils (%) (Auto) 0.4% (0-5) Basophils (%) (Auto) 0.2% (0-3) Sodium Level 136mEq/L (134-144) Potassium Level 4.7mEq/L (3.5-5.2) Chloride Level 101mEq/L (97-108) Carbon Dioxide Level 20mmol/L (18-29) Blood Urea Nitrogen 32mg/dL (8-27) Creatinine 1.12mg/dL (0.76-1.27) Estimat Glomerular Filtration Rate 66mL/min (>59) Glucose Level 202mg/dL (60-99) Calcium Level 8.9mg/dL (8.5-10.1) Total Bilirubin 0.7mg/dL (0.0-1.2) Aspartate Amino Transf (AST/SGOT) 32U/L (0-50) Alanine Aminotransferase (ALT/SGPT) 15U/L (0-44) Alkaline Phosphatase 131U/L (25-160) Total Protein 6.9g/dL (6.4-8.4) Albumin 3.1g/dL (3.4-5.0) Assessment/Plan Assessment/Plan Warfarin per Rx Indicaiton: A-Fib INR Goal: 2 - 3; Today's INR 1.55 Home dose: Alternating 3 & 4 mg; Gave 4mg dose for today; Daily INR Ren Villarreal PharmD Feb 12, 2017 22:46
[2017-02-12] MEDS: CeFAZolin Inj 2,000 MG in Dextrose 5% 50 ML IV SCH (23:24)
[2017-02-13 00:25] VITALS: BP 106/72; PULSE 53; RESP 17; O2SAT 92
[2017-02-13] MEDS: Sodium Chloride LOK Flush 10 mL Syringe IV SCH ×3 (00:28→16:40)
[2017-02-13] MEDS: oxyCODONE-Acetamin 5-325 mg Tablet PO PRN ×4 (00:36→16:42)
--- NOTE | 2017-02-13 04:22 | NUR ---
Activity/pain Pt reporting right hip pain up to 5/10 and took 1 tab of percocet. Pt also wanted something to help him sleep so Benadryl 25 mg PO was given. On reassessment, pt resting and appears comfortable. Orthos intact, pt has been cold at the beginning of shift but overall skin is warm to touch, pulses palpable. Pt did lose IV and new 20gauge IV started on right forearm. Pt tolerating general diet and overnight has been on 2L to keep O2 sats above 92%, tried to wean however pt would dip into high 80s. Right hip dressing is CDI and wedge is in place, perez patent and draining clear urine.
[2017-02-13 05:47] VITALS: BP 120/71; PULSE 53; RESP 22; O2SAT 100
[2017-02-13] MEDS: CeFAZolin Inj 2,000 MG in Dextrose 5% 50 ML IV SCH (06:18)
[2017-02-13] MEDS: 0.9% Sodium Chloride 1,000 ML IV SCH ×3 (06:19→19:23)
[2017-02-13 06:59] LABS: BASOPHILS % (AUTO) 0.4 % (0-3); EOSINOPHILS % (AUTO) 0.5 % (0-5); MONOCYTES % (AUTO) 10.2 % (4-12); Mean Corpuscular Hemoglobin 29.1 pg (27.0-35.0); Mean Corpuscular Volume 91.9 fL (81-100); NEUTROPHILS % (AUTO) 79.8 % (40-74); Platelet Count 326 bil/L (150-400)
[2017-02-13 07:18] LABS: INR 1.31 ratio
--- NOTE | 2017-02-13 07:31 | PCM.PNORTH ---
Subjective Date of Service: Feb 13, 2017 Visit Information: Reason for Visit Femoral Neck Non Union Fracture Right Surgery/Surgery Date Post-Op Day # Date of Admission: Feb 12, 2017 at 18:04 Hospital Day # Subjective Foundation awake and alert in bed. Answered yes and no questions appropriately. Indicates he has been staying at [facility]. Does not complain of pain at this time. Found abduction wedge in place but pushing into patient's groin. Reposition this and patient agree he was more Trouble. Postop General: No Complaints Pain Management: PO Objective Exam Objective Alert and communicative. Patient has difficulty hearing. Interoperative dressing is clean dry and intact. Toe wiggle and sensation are intact in right lower extremity distally. Calf and thigh are soft and nontender. Abduction wedges in place and adjusted to remove pressure on groin from which sliding up. Dukes present and working SCD on left lower extremity but not playing again. Vital Signs and I/O Vital Sign - Last Date Time Temp Pulse Resp B/P Pulse Ox O2 Delivery O2 Flow Rate FiO2 02/13/17 05:47 36.9 53 22 120/71 100 Nasal Cannula 3.00 Intake and Output 02/12/17 02/12/17 02/13/17 Cumulative From/Thru 15:00 23:00 07:00 02/08/17 14:35 - 02/13/17 06:39 Intake Total 850 ml 150 ml 300 ml 1300 ml Output Total 150 ml 90 ml 325 ml 565 ml Balance 700 ml 60 ml -25 ml 735 ml Intake Oral 300 ml 300 ml IV Total 850 ml 150 ml 1000 ml Output Urine Total 50 ml 90 ml 325 ml 465 ml Estimated Blood Loss 100 ml 100 ml # Bowel Movements 0 0 Lab & Micro Results Laboratory Tests Test 02/12/17 12:00 02/12/17 17:04 02/12/17 21:50 02/13/17 06:48 Prothrombin Time 16.7sec (8.1-12.5) Prothromb Time International Ratio 1.55ratio Urine Color Yellow (YELLOW) Urine Appearance Clear (CLEAR,HAZY) Urine pH 6.0 (5.0-8.0) Urine Specific [place] N (1.003-1.035) Urine Protein Negativemg/dL (NEG,TRACE) Urine Glucose (UA) Negativemg/dL (NEGATIVE) Urine Ketones Negativemg/dL (NEGATIVE) Urine Occult Blood Trace (NEGATIVE) Urine Nitrite Negative (NEGATIVE) Urine Bilirubin Negative (NEGATIVE) Urine Urobilinogen Normalmg/dL (NORMAL) Urine Leukocyte Esterase Negative (NEGATIVE) Urine RBC 0-2/hpf (0-2) Urine WBC 0-5/hpf (0-5) Urine Epithelial Cells Few/hpf (NONE-MOD) Urine Crystals None seen (NONE SEEN) Urine Bacteria Few/hpf (NONE-FEW) Urine Hyaline Casts None/lpf (NONE) Urine Granular Casts None seen (NONE SEEN) Urine Waxy Casts None seen (NONE SEEN) Urine Red Blood Cell Casts None seen (NONE SEEN) Urine White Blood Cell Casts None seen (NONE SEEN) Urine Mucus None seen (None Seen) Urine Trichomonas None seen (NONE SEEN) Urine Yeast None (NONE SEEN) Urinalysis Comment None Urine Culture Reflexed Not indicated White Blood Count 12.8th/mm3 (3.8-10.1) 10.5th/mm3 (3.8-10.1) Red Blood Count 3.71mil/mm3 (4.40-5.80) 3.57mil/mm3 (4.40-5.80) Hemoglobin 10.7g/dL (13.8-17.2) 10.4g/dL (13.8-17.2) Hematocrit 33.9% (41.0-50.0) 32.8% (41.0-50.0) Mean Corpuscular Volume 91.4fL (81-100) 91.9fL (81-100) Mean Corpuscular Hemoglobin 28.8pg (27.0-35.0) 29.1pg (27.0-35.0) Mean Corpuscular Hemoglobin Concent 31.6% (32.0-37.0) 31.7% (32.0-37.0) Red Cell Distribution Width 19.0% (12.3-15.4) 19.3% (12.3-15.4) Platelet Count 330bil/L (150-400) 326bil/L (150-400) Neutrophils (%) (Auto) 85.0% (40-74) 79.8% (40-74) Lymphocytes (%) (Auto) 5.6% (14-46) 8.5% (14-46) Monocytes (%) (Auto) 8.4% (4-12) 10.2% (4-12) Eosinophils (%) (Auto) 0.4% (0-5) 0.5% (0-5) Basophils (%) (Auto) 0.2% (0-3) 0.4% (0-3) Sodium Level 136mEq/L (134-144) Potassium Level 4.7mEq/L (3.5-5.2) Chloride Level 101mEq/L (97-108) Carbon Dioxide Level 20mmol/L (18-29) Blood Urea Nitrogen 32mg/dL (8-27) Creatinine 1.12mg/dL (0.76-1.27) Estimat Glomerular Filtration Rate 66mL/min (>59) Glucose Level 202mg/dL (60-99) Calcium Level 8.9mg/dL (8.5-10.1) Total Bilirubin 0.7mg/dL (0.0-1.2) Aspartate Amino Transf (AST/SGOT) 32U/L (0-50) Alanine Aminotransferase (ALT/SGPT) 15U/L (0-44) Alkaline Phosphatase 131U/L (25-160) Total Protein 6.9g/dL (6.4-8.4) Albumin 3.1g/dL (3.4-5.0) Result Diagram: 02/13/17 0648 02/12/17 2150 General Appearance: Alert, Cooperative, No Acute Distress Extremities: No Compartment Syndrom Noted, Thigh & Calf Soft/Nontender Postop Sensory Motor: Distal Motor Intact, Movement in Toes, Distal Sensation Intact Activity: Activity per PT, Ambulate with PT (weightbearing as tolerated on the right lower extremity using a front wheeled walker.) Catheters: Urethral 2 Way Dukes Assessment & Plan Impression Ivan Solano is an 86-year-old gentleman who had suffered a right hip fracture in November 2016 with a subsequent right femoral neck pinning. He had continued pain and dysfunction and it was determined that his femoral neck was not healing. Dr. anders consult on this patient regarding a conversion to a right jacque-hip arthroplasty which was performed on 02/12/[address] Neil Dominguez. Patient is pleasant and communicative will answer questions. Orientation is indeterminate. Problems: Plan Postop day #1 from right hip femoral neck cannulated screw pinning conversion to a right hip hemiarthroplasty performed on 02/12/[address] nathaniel Dominguez. Weight-bear as tolerated on the right lower extremity using a front wheeled walker. Continue formal physical therapy for mobility, gait and safety. Continue by mouth pain medication as needed. Continue chronic Coumadin dosing for DVT prophylaxis with pharmacy to dose and manage. Interoperative dressing will be changed on postop day #2. Hip abduction which may be discontinued on postop day #1 unless patient prefers to have it in place. Nursing please measure and fit patient for bilateral thigh-high JENNIFER hose as will be ordered today. Nursing please use bilateral calf high SCDs. Nursing may discontinue abduction wedge on postop day #1 unless patient prefers to have it in place. Follow-up in 2 weeks at [facility] orthopedic clinic with mid-level provider for wound check and suture removal. Follow-up in 6 weeks at [facility] orthopedic clinic with Dr. Neil Laguna with AP pelvis and right crosstable lateral hip x-rays on arrival. Orthopedics thanks hospitalist service for their help in the medical management of this patient. Anticipate discharge to [facility] on or about postop day #3, 02/15/2017 if patient is determined to be medically stable for discharge by hospitalist service.. VTE Prophylaxis: Theraputic Anticoag with Warfarin (pharmacy to dose and manage.), SCDs (SCD at left lower extremity), JENNIFER Hose (bilateral thigh-high JENNIFER hose will be ordered today.) Oscar Draper PA-C Feb 13, 2017 07:31
[2017-02-13] MEDS: Senna-Docusate 8.6-50 mg Tablet PO SCH ×3 (08:20→20:20)
--- NOTE | 2017-02-13 09:59 | NUR ---
Evaluation completed. Please go to "Notes" then click on "Assessments and Notes" (bottom left corner of screen). Then select appropriate discipline tab on top of screen.
--- NOTE | 2017-02-13 11:57 | PCM.PHAPRO ---
Progress Date of Service: Feb 13, [address] Neil Dominguez for assistance with management of severe aortic stenosis and atrial fibrillation. WARFARIN MANAGEMENT A/ PT WITH AFIB CURRENT INR=1.31 (GOAL 2-3) HOME DOSE WARFARIN ALTERNATING 3MG AND 4MG RECEIVED 4MG YESTERDAY P/ WILL CONTINUE WARFARIN 4MG TODAY DUE TO LOW INR AT 1700 WITH DAILY PT/INR PHARMACY WILL CONTINUE TO MONITOR THANKS FOR THE CONSULT Derek Manzanares [facility] Feb 13, 2017 11:57
--- NOTE | 2017-02-13 14:09 | PCM.PNMED ---
Subjective Date of Service Feb 13, 2017 Subjective Pt notes feeling well. Some discomfort, but pain is not severe except when working with PT, which was painful at times. Appetite is good. NO other acute complaints at this time. Denies SOB, chills, sweats. Exam Vital Signs Vital Sign - Last Date Time Temp Pulse Resp B/P Pulse Ox O2 Delivery O2 Flow Rate FiO2 02/13/17 13:45 Nasal Cannula 02/13/17 05:47 36.9 53 22 120/71 100 3.00 Intake and Output 02/12/17 02/12/17 02/13/17 Cumulative From/Thru 15:00 23:00 07:00 02/08/17 14:35 - 02/13/17 06:39 Intake Total 850 ml 150 ml 300 ml 1300 ml Output Total 150 ml 90 ml 325 ml 565 ml Balance 700 ml 60 ml -25 ml 735 ml Intake Oral 300 ml 300 ml IV Total 850 ml 150 ml 1000 ml Output Urine Total 50 ml 90 ml 325 ml 465 ml Estimated Blood Loss 100 ml 100 ml # Bowel Movements 0 0 General: Alert, Oriented X3, Cooperative, Mild Distress, Other (speech is muffled/slurred but appropriate repsonse. ) Mouth: Mucous Membr Moist/[place] Chest & Lungs: Clear to auscultation & percussion Cardiovascular: Regular Rate/Rhythm Abdomen: Non-tender, Non-distended Extremities: No cyanosis/clubbing/edma bilat, Other (NO edema. LE well perfused. 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 1. Right femoral non healing neck fracture s/p internal fixation and recent jacque -arthroplasty - Consult requested per Dr. Dominguez for multiple medical co-morbidities - Post-op day #2 - Anticoagulation per ortho, warfarin has been ordered for pharmacy to dose 2. History of aortic stenosis, with a moderately severely dilated ascending and aortic arch, Atrial fibrillation, RBBB and Left anterior bifascicular block, and aortic stenosis. CHFrEF stable at this time - Cardiology was consulted during previous admission 12/19 - Will consider re-consultation given complexity of cardiac co-morbidities if patient should decompensate. At this time patient is stable. - Will review home medications. Patient does have low blood pressure following procedure. - Ok to continue torsemide and spironolactone, while closely monitoring BP / HR , restart metoprolol / lisinopril if BP remains stable and pt is not bradycardic - Lowering IVFs to 50cc/hr given good pO intake and ronny of heart failure. 3. History of Afib. rate controlled - Restarting Lisinopril at this time 2.5mg, continue holding rate control medications at this time with bradycardia, will restart when appropriate - Continue Coumadin dosing per pharmacy 4. 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 Received TPA at that time. - Patient is currently stable. 5. Hyperlipidemia, chronic -restart pravastatin when taking PO Pain Evaluation: Adequate Pain Control VTE Prophylaxis: Theraputic Anticoag with Warfarin (pharmacy to dose and manage.), SCDs (SCD at left lower extremity), JENNIFER Hose (bilateral thigh-high JENNIFER hose will be ordered today.) VTE Mechanical Devices: Intermittant Pneumatic CD Time spent 25 minutes Lawrence Lamas DO Feb 13, 2017 14:08
[2017-02-13 14:42] VITALS: BP 101/69; PULSE 92; RESP 20; O2SAT 94
--- NOTE | 2017-02-13 15:49 | NUR ---
Social Work-initial assessment: Data: EMR reviewed. Pt is a 86 y/o male who was admitted for femoral neck non union fracture right per H&P. Pt's insurance is Medicare and PCP is Phill Knutson MD. Pt does not have intermediate manager care insurance or VA benefits. Pt has no history of HH. Pt has history SNF services at [facility]. SW met with Pt and explained role. PT saw pt and recommends returning to SNF. Pt resides at [facility] and is willing to return at discharge. Pt does not drive and does not have DME. SW discussed DPOA/ advanced directive, SW confirmed with pt that this has been completed and documentation has been provided to hospital. SW provided phone number and plan on white board in room. SW will continue to follow. Assessment:Pt who resides at [facility] at baseline. Plan:Pt to discharge to [facility] when medically stable. SW will continue to follow. GISELA Lebron Addendum: 02/13/17 at 1555 by ANNA BACA Amended: Links added.
--- NOTE | 2017-02-13 18:05 | NUR ---
pain fairly good pain control with 1 Percocet, pt able to stand and transfer with FWW and take a few steps. Ortho signs OK, VSS
[2017-02-13 20:17] VITALS: BP 113/62; PULSE 59; RESP 20; O2SAT 93
[2017-02-14] MEDS: Sodium Chloride LOK Flush 10 mL Syringe IV SCH ×3 (00:29→16:30)
[2017-02-14] MEDS: oxyCODONE-Acetamin 5-325 mg Tablet PO PRN ×3 (01:37→13:32)
[2017-02-14 04:38] VITALS: BP 101/66; PULSE 98; RESP 20; O2SAT 96
--- NOTE | 2017-02-14 04:59 | NUR ---
Pain / mobility Pain adequately controlled with Percocet. Pt able to transfer to BSC with FWW and full assistance, requires cues for standing straight and proper use of walker. Dukes removed at HS, pt able to urinate small amount in commode; denies urge to urinate, bladder scan shows accumulation of <200 cc; will continue to follow up. Hourly rounding ongoing.
[2017-02-14 07:21] LABS: BASOPHILS % (AUTO) 0.2 % (0-3); EOSINOPHILS % (AUTO) 0.6 % (0-5); MONOCYTES % (AUTO) 11.1 % (4-12); Mean Corpuscular Hemoglobin 29.6 pg (27.0-35.0); Mean Corpuscular Volume 92.1 fL (81-100); NEUTROPHILS % (AUTO) 80.5 % (40-74); Platelet Count 289 bil/L (150-400)
[2017-02-14 07:37] LABS: INR 2.51 ratio
--- NOTE | 2017-02-14 08:36 | PCM.PNMED ---
Subjective Date of Service Feb 14, 2017 Subjective Pt denies signifcant pain at this time, though hip is uncomfortable. He ate very little breakfast but notes this is more because the taste was not good, offered oatmeal which he will try. (+) bowel movement. NO other acute complaints at this time. Exam Vital Signs Vital Sign - Last Date Time Temp Pulse Resp B/P Pulse Ox O2 Delivery O2 Flow Rate FiO2 02/14/17 04:38 36.7 98 20 101/66 96 Nasal Cannula 3.00 Intake and Output 02/13/17 02/13/17 02/14/17 Cumulative From/Thru 15:00 23:00 07:00 02/08/17 14:35 - 02/14/17 06:23 Intake Total 1045 ml 740 ml 1791 ml 4876 ml Output Total 200 ml 100 ml 865 ml Balance 1045 ml 540 ml 1691 ml 4011 ml Intake Oral 740 ml 200 ml 1240 ml IV Total 1045 ml 1591 ml 3636 ml Output Urine Total 200 ml 100 ml 765 ml Estimated Blood Loss 100 ml # Bowel Movements 0 0 0 Exam General: Alert, Oriented X3, Cooperative, Mild Distress, speech is muffled/ slurred but appropriate repsonse. Mouth: Mucous Membranes Moist/[place] Chest & Lungs: Clear to auscultation & percussion Cardiovascular: Regular Rate/Rhythm Abdomen: Non-tender, Non-distended Extremities: No cyanosis/clubbing/edema bilat, NO edema. LE well perfused. His immobilized while in bead with foam wedge. 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 1. Right femoral non healing neck fracture s/p internal fixation and recent jacque -arthroplasty - Consult requested per Dr. Dominguez for multiple medical co-morbidities - Post-op day #2 - Anticoagulation per ortho, warfarin has been ordered for pharmacy to dose - Plan for DC tomorrow to SNF as per ortho recs, should pt remain medically stable. - Weight baring as tolerated. 2. History of aortic stenosis, with a moderately severely dilated ascending and aortic arch, Atrial fibrillation, RBBB and Left anterior bifascicular block, and aortic stenosis. CHFrEF stable at this time - Cardiology was consulted during previous admission 12/19 - Will consider re-consultation given complexity of cardiac co-morbidities if patient should decompensate. At this time patient is stable. - Will review home medications. Patient does have low blood pressure following procedure. - Ok to continue torsemide and spironolactone, while closely monitoring BP / HR , restart metoprolol / lisinopril if BP remains stable and pt is not bradycardic - Lowering IVFs to 50cc/hr given adequate PO intake and ronny of heart failure. 3. History of Afib. rate controlled - Restarting Lisinopril at this time 2.5mg, continue holding rate control medications at this time with bradycardia, will restart when appropriate - Continue Coumadin dosing per pharmacy 4. 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 Received TPA at that time. - Patient is currently stable. 5. Hyperlipidemia, chronic -restarting pravastatin when taking PO . Pain Evaluation: Adequate Pain Control VTE Prophylaxis: Theraputic Anticoag with Warfarin (pharmacy to dose and manage.), SCDs (SCD at left lower extremity), JENNIFER Hose (bilateral thigh-high JENNIFER hose will be ordered today.) VTE Mechanical Devices: Intermittant Pneumatic CD Time spent 25 minutes Lawrence Lamas DO Feb 14, 2017 08:36
[2017-02-14] MEDS: Senna-Docusate 8.6-50 mg Tablet PO SCH ×2 (09:27→20:57)
--- NOTE | 2017-02-14 10:06 | PCM.PNORTH ---
Subjective Date of Service: Feb 14, 2017 Visit Information: Reason for Visit Femoral Neck Non Union Fracture Right Surgery/Surgery Date right hip hardware removal and conversion to hemiarthroplasty Post-Op Day # 2 Date of Admission: Feb 12, 2017 at 18:04 Hospital Day # Subjective Patient states the hip is doing well. He stood up at bedside yesterday and took a few steps. His daughter is at bedside. Postop General: No Complaints, No Shortness of Breath, No Chest Pain, Good Appetite Pain Management: PO Objective Exam Objective Patient is seen sitting up in bed eating his breakfast. His daughter is at bedside Vital Signs and I/O Vital Sign - Last Date Time Temp Pulse Resp B/P Pulse Ox O2 Delivery O2 Flow Rate FiO2 02/14/17 04:38 36.7 98 20 101/66 96 Nasal Cannula 3.00 Intake and Output 02/13/17 02/13/17 02/14/17 Cumulative From/Thru 15:00 23:00 07:00 02/08/17 14:35 - 02/14/17 06:23 Intake Total 1045 ml 740 ml 1791 ml 4876 ml Output Total 200 ml 100 ml 865 ml Balance 1045 ml 540 ml 1691 ml 4011 ml Intake Oral 740 ml 200 ml 1240 ml IV Total 1045 ml 1591 ml 3636 ml Output Urine Total 200 ml 100 ml 765 ml Estimated Blood Loss 100 ml # Bowel Movements 0 0 0 Lab & Micro Results Laboratory Tests Test 02/14/17 07:00 White Blood Count 12.4th/mm3 (3.8-10.1) Red Blood Count 3.18mil/mm3 (4.40-5.80) Hemoglobin 9.4g/dL (13.8-17.2) Hematocrit 29.3% (41.0-50.0) Mean Corpuscular Volume 92.1fL (81-100) Mean Corpuscular Hemoglobin 29.6pg (27.0-35.0) Mean Corpuscular Hemoglobin Concent 32.1% (32.0-37.0) Red Cell Distribution Width 19.3% (12.3-15.4) Platelet Count 289bil/L (150-400) Neutrophils (%) (Auto) 80.5% (40-74) Lymphocytes (%) (Auto) 7.1% (14-46) Monocytes (%) (Auto) 11.1% (4-12) Eosinophils (%) (Auto) 0.6% (0-5) Basophils (%) (Auto) 0.2% (0-3) Prothrombin Time 27.4sec (8.1-12.5) Prothromb Time International Ratio 2.51ratio Sodium Level 138mEq/L (134-144) Potassium Level 5.2mEq/L (3.5-5.2) Chloride Level 106mEq/L (97-108) Carbon Dioxide Level 19mmol/L (18-29) Blood Urea Nitrogen 33mg/dL (8-27) Creatinine 1.24mg/dL (0.76-1.27) Estimat Glomerular Filtration Rate 59mL/min (>59) Glucose Level 137mg/dL (60-99) Calcium Level 8.8mg/dL (8.5-10.1) Microbiology 02/12/17 Gram Stain - Final, Resulted 02/12/17 Culture & Sensitivity, Resulted Pending 02/12/17 Anaerobic Culture, Resulted Pending Result Diagram: 02/14/17 0700 02/14/17 0700 General Appearance: Alert, Oriented X3, Cooperative, No Acute Distress Extremities: Distal Pulses Palpable, No Compartment Syndrom Noted, Thigh & Calf Soft/Nontender Postop Sensory Motor: Distal Motor Intact, NVI Distally SURGICAL WOUND : Wound Location/Description Lateral right hip: Surgical dressing is removed. Steri-Strips are intact. There is a small amount of dried serous drainage on the bandage. Incisional area was cleansed with hydrogen peroxide and Island dressing was applied. Activity: Activity per PT, Ambulate with PT (weightbearing as tolerated on the right lower extremity using a front wheeled walker.) Catheters: Urethral 2 Way Dukes Assessment & Plan Impression Status post right hip hardware removal and conversion to hemiarthroplasty Problems: Plan Weightbearing: Weightbearing as tolerated with walker DVT prophylaxis: Warfarin (chronic anticoagulation) Physical therapy for transfers, progressive ambulation, therapeutic exercise Wound care: PA change dressing today to an island dressing. There was a small amount of dried serous drainage at the distal end of the incision at the site of the old hardware. Thigh-high JENNIFER hose for 4 weeks Hip precaution positions to prevent dislocation: No flexing forward past 90, no crossing the legs at the knee, no active abduction for 6 weeks after surgery DC abduction pillow. Use a regular pillow between legs when in bed We appreciate hospitalist involvement in the care of this patient. Discharge plan: Discharge tomorrow if medically stable. Patient will return to [facility]. Follow-up plan: In 2 weeks at [facility] with JD for wound check and at [address] Dominguez with x-rays Pain Management: Percocet VTE Prophylaxis: Theraputic Anticoag with Warfarin (pharmacy to dose and manage.), SCDs (SCD at left lower extremity), JENNIFER Hose (bilateral thigh-high JENNIFER hose will be ordered today.) Maris Orr PA-C Feb 14, 2017 10:06
--- NOTE | 2017-02-14 12:31 | PCM.PHAPRO ---
Progress Warfarin Management by Pharmacy: -Indication: afib -Inr Goal : 2-3 -Home Dose: warfarin 3mg q2 days, then 4mg q2 days cycling -[id number] Score: 6 -H/H 9.4/29.3 -Platelets: 289 -Disease Consideration: extensive cardiac history -Drug Interactions: none -Concurrent Anticoagulation: none -Coagulation Trends: -Feb 13-Feb 14-Jan 1.55 1.31 2.51 -0.24 1.2 4mg 4MG HOLD Plan: pt is Day 2 s/p hardware removal and hemiarthroplasty. Inr significantly increased to 2.51 today (from 1.31 yesterday), therefore will need to hold the dose this evening and monitor Danielle Patel [facility] Feb 14, 2017 12:30
[2017-02-14 13:28] VITALS: BP 123/79; PULSE 113; RESP 18; O2SAT 96
[2017-02-14 23:48] VITALS: BP 100/65; PULSE 85; RESP 18; O2SAT 97
[2017-02-15] MEDS: Sodium Chloride LOK Flush 10 mL Syringe IV SCH (00:30)
[2017-02-15] MEDS: oxyCODONE-Acetamin 5-325 mg Tablet PO PRN ×2 (01:18→08:59)
--- NOTE | 2017-02-15 01:39 | NUR ---
Pain After repositioning patient in bed, patient complains of 2/10 right hip pain with a FELDT score of 3/10. 1 tab percocet given PO, crushed and in applesauce. At beginning of shift when 2030 meds were being given, patient tried to chew medications instead of swallowing them, and had difficulty following commands. With medications crushed in applesauce patient was able to tolerate administration well. Patient is currently sleeping and appears comfortable. Will continue to assess for pain, and continue Q1 hour checks.
[2017-02-15] MEDS: 0.9% Sodium Chloride 1,000 ML IV SCH (04:21)
[2017-02-15 04:53] VITALS: BP 101/73; PULSE 97; RESP 18; O2SAT 96
[2017-02-15 07:11] LABS: INR 2.87 ratio
[2017-02-15] MEDS: Senna-Docusate 8.6-50 mg Tablet PO SCH (08:57)
--- NOTE | 2017-02-15 10:32 | NUR ---
ELISE Signed @ 332AM
[2017-02-15 10:49] VITALS: BP 90/59; PULSE 68; RESP 16; O2SAT 98
--- NOTE | 2017-02-15 10:56 | PCM.PNORTH ---
Subjective Date of Service: Feb 15, 2017 Visit Information: Reason for Visit Femoral Neck Non Union Fracture Right Surgery/Surgery Date Post-Op Day # Date of Admission: Feb 12, 2017 at 18:04 Hospital Day # Subjective Found patient awake and alert and finishing participation with formal physical therapy. Patient is aphasic but attempts communication and does understand that he is hearing. Myself, and the physical therapist and patient's daughter discussed with him today twice a day of going to [facility]. Apparently the patient felt more comfortable at [facility] in the past and would like to go there again. Patient participated better with formal physical therapy today with again a distance of approximately 8 feet. Postop General: No Complaints, No Shortness of Breath, No Chest Pain, Good Appetite Pain Management: PO Objective Exam Objective Patient is alert and oriented and pleasant but expressively aphasic. Postop dressing is clean and dry and lucent. Calf and thigh are soft and nontender. We will and sensation are intact at right lower extremity distally Bilateral SCDs are in place. Dukes is absent. Gait 8 feet with formal physical therapy today. Recommendation is for discharge to long term facility. Vital Signs and I/O Vital Sign - Last Date Time Temp Pulse Resp B/P Pulse Ox O2 Delivery O2 Flow Rate FiO2 02/15/17 10:49 36.5 68 16 90/59 98 Room Air 02/14/17 23:48 3.00 Intake and Output 02/14/17 02/14/17 02/15/17 Cumulative From/Thru 15:00 23:00 07:00 02/08/17 14:35 - 02/15/17 06:31 Intake Total 364 ml 1360 ml 245 ml 6845 ml Output Total 1250 ml 550 ml 2665 ml Balance 364 ml 110 ml -305 ml 4180 ml Intake Oral 1360 ml 245 ml 2845 ml IV Total 364 ml 4000 ml Output Urine Total 1250 ml 550 ml 2565 ml Estimated Blood Loss 100 ml # Bowel Movements 0 0 0 Lab & Micro Results Laboratory Tests Test 02/15/17 06:35 Prothrombin Time 31.4sec (8.1-12.5) Prothromb Time International Ratio 2.87ratio Sodium Level 139mEq/L (134-144) Potassium Level 4.8mEq/L (3.5-5.2) Chloride Level 105mEq/L (97-108) Carbon Dioxide Level 20mmol/L (18-29) Blood Urea Nitrogen 40mg/dL (8-27) Creatinine 1.38mg/dL (0.76-1.27) Estimat Glomerular Filtration Rate 52mL/min (>59) Glucose Level 119mg/dL (60-99) Calcium Level 9.1mg/dL (8.5-10.1) Total Bilirubin 0.8mg/dL (0.0-1.2) Aspartate Amino Transf (AST/SGOT) 37U/L (0-50) Alanine Aminotransferase (ALT/SGPT) 7U/L (0-44) Alkaline Phosphatase 121U/L (25-160) Total Protein 6.0g/dL (6.4-8.4) Albumin 3.1g/dL (3.4-5.0) Microbiology 02/12/17 Gram Stain - Final, Resulted 02/12/17 Culture & Sensitivity - Preliminary, Resulted 02/12/17 Anaerobic Culture - Preliminary, Resulted Result Diagram: 02/14/17 0700 02/15/17 0635 General Appearance: Alert, Oriented X3, Cooperative, No Acute Distress Extremities: No Compartment Syndrom Noted, Thigh & Calf Soft/Nontender Postop Sensory Motor: Distal Motor Intact, Movement in Toes, Distal Sensation Intact Activity: Activity per PT, Ambulate with PT (weightbearing as tolerated on the right lower extremity using a front wheeled walker.) Catheters: None Assessment & Plan Plan Postoperative day #3 from right hip pinning conversion to right hip hemiarthroplasty performed on 02/12/[address] Neil Dominguez. Weightbearing as tolerated on the right lower extremity using a front wheeled walker. Continue formal physical therapy for mobility, gait and safety. Hip precautions include no hip flexion past 90, no crossing of the legs and no active abduction. Continue by mouth pain medication as needed. Continue chronic Coumadin dosing. Continue thigh-high JENNIFER hose 4 weeks postop. May use regular pillow between legs while in bed. Nursing please change postop dressing prior to discharge. Follow-up in 2 weeks at [facility] orthopedic clinic with mid-level provider for wound check and suture removal. Follow-up in 6 weeks at [facility] orthopedic clinic with Dr. Neil Laguna with AP pelvis and right crosstable lateral hip x-rays on arrival. Orthopedics thanks hospitalist service for their help in the medical management of this patient. Anticipate discharge to [facility] today on postop day #3, 02/15/2017 if patient is determined to be medically stable for discharge by hospitalist service.. VTE Prophylaxis: Theraputic Anticoag with Warfarin (pharmacy to dose and manage.), SCDs (SCD at left lower extremity), JENNIFER Hose (bilateral thigh-high JENNIFER hose will be ordered today.) Oscar Draper PA-C Feb 15, 2017 10:56 We appreciate hospitalist involvement in the care of this patient. Discharge plan: Discharge tomorrow if medically stable. Patient will return to [facility]. Follow-up plan: In 2 weeks at [facility] with JD for wound check and at [address] Dominguez with x-rays VTE Prophylaxis: Theraputic Anticoag with Warfarin (pharmacy to dose and manage.), SCDs (SCD at left lower extremity), JENNIFER Hose (bilateral thigh-high JENNIFER hose will be ordered today.) Oscar Draper PA-C Feb 15, 2017 10:56
--- NOTE | 2017-02-15 11:00 | NUR ---
Gave access and faxed facesheet to [facility]. Patient had previously been at [facility] but daughter would like to see if [facility] [place] has a bed. 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
--- NOTE | 2017-02-15 11:08 | PCM.DIORTH ---
Ortho Discharge Instruction Date of Service: Feb 15, 2017 Dates of Hospitalization Date of Hospital Admission Feb 12, 2017 at 18:04 Providers Admitting Physician: Neil Dominguez DO Primary Care Physician: Phill Knutson MD Attending Physician: Neil Dominguez DO Diet Discharge Diet: No restrictions Activity Discharge Activity-General: Balance rest and activity, Ice incision 3-5 time/ day for 20min, Activity as pain allows, Activity as energy allows, No driving while taking narcotic Right Lower Extremity: Weight Bearing as tolerated Discharge Assist Device: Front Wheeled Walker Dressing and Incisional Care Discharge Dressing Care: Keep dressing clean, dry & intact, Change soiled dressing Discharge Hygiene: May shower (patient may shower at 3-4 days postop if wound has been clean and dry for 24 hours. Otherwise keep wound lightly covered for abrasion resistance.), DO NOT soak incision under water, NO bathtub, hot tub or whirlpool Additional Instructions Discharge Instructions Postoperative day #3 from right hip pinning conversion to right hip hemiarthroplasty performed on 02/12/[address] Neil Dominguez. Weightbearing as tolerated on the right lower extremity using a front wheeled walker. Continue formal physical therapy for mobility, gait and safety. Hip precautions include no hip flexion past 90, no crossing of the legs and no active abduction. Continue by mouth pain medication as needed. Continue chronic Coumadin dosing. Continue thigh-high JENNIFER hose 4 weeks postop. May use regular pillow between legs while in bed. Nursing please change postop dressing prior to discharge. Follow-up in 2 weeks at [facility] orthopedic clinic with mid-level provider for wound check and suture removal. Follow-up in 6 weeks at [facility] orthopedic clinic with Dr. Neil Laguna with AP pelvis and right crosstable lateral hip x-rays on arrival. Orthopedics thanks hospitalist service for their help in the medical management of this patient. Anticipate discharge to [facility] today on postop day #3, 02/15/2017 if patient is determined to be medically stable for discharge by hospitalist service.. Follow Up Plan Follow Up Plan Follow-up in 2 weeks, 6 weeks and 12 weeks postoperatively. Follow up when necessary in the interim. Follow-up Provider (F9): Maris Orr PA-C Mid-level Provider (F9): Neil Dominguez DO Follow-up appointment: Weeks (follow-up in 2 weeks [facility] orthopedic clinic) Call your provider for: Fever, Chills, Shortness of breath, Vomitting, Drainage at incision Oscar Draper PA-C Feb 15, 2017 11:08
[2017-02-15] MEDS ORDERED: OXYC1TAB24 PO (11:17)
[2017-02-15] MEDS ORDERED: DOCU-41 PO (11:17)
--- NOTE | 2017-02-15 12:20 | PCM.PHAPRO ---
Progress Date of Service: Feb 15, 2017 Warfarin Management by Pharmacy: Indication: atrial fibrillation INR goal: 2-3 Home warfarin dose: warfarin 3mg q2 days, then 4mg q2 days cycling [id number] Score: 6 Pertinent info: - s/p hardware removal. Date Feb 13-Feb 14-Feb 15-Jan INR 1.55 1.31 2.51 2.87 INR change -0.24 1.2 0.36 Warf Dose 4mg 4MG HOLD xxxx INR is therapeutic and trending up -- uptrend is significantly reduced from yesterday. Patient is likely discharging but will order reduced dose for today if patient is still here at standard warfarin dosing time. Give warfarin 1 mg PO once this evening at 1700. Pharmacy to continue to monitor and dose warfarin daily. Thank you, Yenni Strauss Pharmacist Yenni Strauss Feb 15, 2017 12:20
--- NOTE | 2017-02-15 15:30 | NUR ---
Pt left via w/c via cabulance to [facility]. Daughter attended.
--- NOTE | 2017-02-20 12:35 | PCM.DC.ORT ---
Discharge Summary Date of Service: Feb 20, 2017 Date of Hospital Admission: Feb 12, 2017 at 18:04 Date of Surgery: Feb 12, 2017 Date of Discharge: Feb 15, 2017 Reason for Hospitalization: Right femoral neck fracture Procedures Performed: Right hip pinning conversion to right hip hemiarthroplasty Hospital Course: Patient was admitted through the emergency department on 02/12/[address] Neil Laguna. Patient was ultimately taken to the operating room on where he underwent a right hip pinning conversion to a right hip hemiarthroplasty on 02/12/2017. Upon awakening from surgery patient was taken to the postoperative care unit and upon recovery from anesthesia and was taken to the orthopedic area where he continued to recover from surgery and was ultimately discharged to a group home facility on 02/15/2017. Problems: (1) Fracture of femoral neck, right, closed Status: Acute ICD Code: S72.001A Disposition: Discharged to group home facility Orthopedic Follow up Plan: In Two Weeks in my clinic (follow-up in 2 weeks at [facility] orthopedic clinic on prearranged appointment with mid-level provider for wound check and suture removal.) Discharge Instructions: Postoperative day #3 from right hip pinning conversion to right hip hemiarthroplasty performed on 02/12/[address] Neil Dominguez. Weightbearing as tolerated on the right lower extremity using a front wheeled walker. Continue formal physical therapy for mobility, gait and safety. Hip precautions include no hip flexion past 90, no crossing of the legs and no active abduction. Continue by mouth pain medication as needed. Continue chronic Coumadin dosing. Continue thigh-high JENNIFER hose 4 weeks postop. May use regular pillow between legs while in bed. Nursing please change postop dressing prior to discharge. Follow-up in 2 weeks at [facility] orthopedic clinic with mid-level provider for wound check and suture removal. Follow-up in 6 weeks at [facility] orthopedic clinic with Dr. Neil Laguna with AP pelvis and right crosstable lateral hip x-rays on arrival. Orthopedics thanks hospitalist service for their help in the medical management of this patient. Anticipate discharge to [facility] today on postop day #3, 02/15/2017 if patient is determined to be medically stable for discharge by hospitalist service.. Management Plan: Patient will be seen at 2 weeks, 6 weeks and 12 weeks postoperatively. Patient will be seen when necessary in the interim. Docusate Sodium (Colace) 100 Mg Capsule 100 MG PO BID PRN PRN For Constipation Lisinopril (Lisinopril) 2.5 Mg Tablet 2.5 MG PO DAILY Metoprolol Tartrate (Metoprolol Tartrate) 25 Mg Tablet 25 MG PO DAILY Nitroglycerin SL (Nitroglycerin SL) 0.4 Mg Tab.subl 0.4 MG SL PRN For Chest Pain Pravastatin (Pravastatin) 40 Mg Tablet 40 MG PO DAILY Spironolactone (Spironolactone) 25 Mg Tablet 25 MG PO DAILY Torsemide (Torsemide) 10 Mg Tablet 10 MG PO Q2DAY Warfarin Sodium (Warfarin Sodium) 4 Mg Tablet 4 MG PO Q2DAY alternates with 3mg q2d Warfarin Sodium (Warfarin Sodium) 3 Mg Tablet 3 MG PO Q2DAY alternates with 4mg q2d oxyCODONE-Acetaminophen 5-325 mg (oxyCODONE-Acetaminophen 5-325 mg) 1 Each Tablet 1 TAB PO Q4-6H PRN PRN For Pain Oscar Draper PA-C Feb 20, 2017 12:35
== END 2017-02-15 15:21 | DRG 470 ==
LOC: SAS 11:29 → OSC 18:04
PROVIDERS: ADMIT Orthopaedic Surgery; ATTEND Orthopaedic Surgery
PROC: 0SRR0J9 Replacement of Right Hip Joint, Femoral Surface with Synthetic Substitute, Cemented, Open Approach (ICD-10-PCS; principal; 2017-02-12 14:00)
DX: S72.001K Fracture of unspecified part of neck of right femur, subsequent encounter for closed fracture with nonunion (principal); I69.320 Aphasia following cerebral infarction; I48.91 Unspecified atrial fibrillation; Z79.01 Long term (current) use of anticoagulants; E78.5 Hyperlipidemia, unspecified; I10 Essential (primary) hypertension; I35.0 Nonrheumatic aortic (valve) stenosis

== ENCOUNTER 2017-05-15 16:54 | Inpatient (IN) | payer MEDICARE ==
[2017-05-15] VITALS (7 sets, daily range): BP systolic 115–144; BP diastolic 60–113; PULSE 78–122; RESP 13–22; O2SAT 93–97
[~2017-05-15] VITALS: Ht 175.3 cm; Wt 69.7 kg
[~2017-05-15 16:54] MED LIST changes: -ACET325T51 PO; -CeFAZolin Inj 2 GM in IV Premix 1 EACH IV ONE; -Dexamethasone 4 mg/mL Inj IVPUSH PRN; -EPHEDrine Sulfate 50 mg/mL Inj IVPUSH PRN; -HYDROmorphone 1 mg/mL Inj IVPUSH PRN; -Labetalol 5 mg/mL 4 mL Inj IV PRN; -Lactated Ringer's 500 ML IV PRN; -MetoCLOpramide 5 mg/mL 2 mL Inj IVPUSH PRN; -OXYC-388 PO; +OXYC1TAB24 PO; -Ondansetron 2 mg/mL 2 mL Inj IVPUSH PRN; -Phenylephrine 10,000 mCg/mL Inj IVPUSH PRN; -fentaNYL-PF 50 mCg/mL 2 mL Inj IVPUSH PRN
--- NOTE | 2017-05-15 16:58 | ED.REPORT ---
HPI-Stroke / CVA May 15, 2017 ED Provider: Nursing Notes Stated Complaint: RIGHT SIDE WEAKNESS Nursing Notes Reviewed: Yes ([facility] not reconciled - EMR indicates warfarin hx) Allergies: Coded Allergies: No Known Allergies (Verified Allergy, Unknown, 01/11/17) Scheduled Lisinopril (Lisinopril) 2.5 Mg Tablet 2.5 MG PO DAILY (Reported) Metoprolol Tartrate (Metoprolol Tartrate) 25 Mg Tablet 25 MG PO DAILY (Reported ) Pravastatin (Pravastatin) 40 Mg Tablet 40 MG PO DAILY (Reported) Spironolactone (Spironolactone) 25 Mg Tablet 25 MG PO DAILY (Reported) Torsemide (Torsemide) 10 Mg Tablet 10 MG PO Q2DAY (Reported) Warfarin Sodium (Warfarin Sodium) 4 Mg Tablet 4 MG PO Q2DAY (Reported) alternates with 3mg q2d Warfarin Sodium (Warfarin Sodium) 3 Mg Tablet 3 MG PO Q2DAY (Reported) alternates with 4mg q2d Scheduled PRN Docusate Sodium (Colace) 100 Mg Capsule 100 MG PO BID PRN PRN For Constipation Nitroglycerin SL (Nitroglycerin SL) 0.4 Mg Tab.subl 0.4 MG SL PRN For Chest Pain (Reported) oxyCODONE-Acetaminophen 5-325 mg (oxyCODONE-Acetaminophen 5-325 mg) 1 Each Tablet 1 TAB PO Q4-6H PRN PRN For Pain Past Medical History Past Medical History 1. 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 Received TPA and had resultant RUE paresis which improved. 2. 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 Hyperlipidemia 4. Atrial fibrillation (EMR indicates h/o warfarin use) 5. RBBB and Left anterior bifascicular block 6. Congestive heart failure 7. History of aortic stenosis Past Surgical History Left hip Replacement Surgery Reports: Appendectomy Smoking History Never Smoker Social History Alcohol Use: Denies alcohol use Drug Use: Denies drug use Other Social History: Good social support, Local resident Ambulatory Status Independent Physical Exam Initial Vital Signs Vital Signs (First) Date Time Temp Pulse Resp B/P Pulse Ox O2 Delivery O2 Flow Rate FiO2 05/15/17 17:06 36.8 97 21 115/89 96 Room Air Initial VS: Reviewed Interpretation & Diagnostics Lab Results Interpretation Result Diagram: 05/15/17 1710 05/15/17 1710 Test 05/15/17 17:10 White Blood Count 7.3th/mm3 (3.8-10.1) Red Blood Count 3.86mil/mm3 (4.40-5.80) Hemoglobin 10.5g/dL (13.8-17.2) Hematocrit 33.6% (41.0-50.0) Mean Corpuscular Volume 87.0fL (81-100) Mean Corpuscular Hemoglobin 27.2pg (27.0-35.0) Mean Corpuscular Hemoglobin Concent 31.3% (32.0-37.0) Red Cell Distribution Width 15.8% (12.3-15.4) Platelet Count 274bil/L (150-400) Neutrophils (%) (Auto) 67.4% (40-74) Lymphocytes (%) (Auto) 14.8% (14-46) Monocytes (%) (Auto) 12.4% (4-12) Eosinophils (%) (Auto) 4.2% (0-5) Basophils (%) (Auto) 1.1% (0-3) Prothrombin Time 14.7sec (8.1-12.5) Prothromb Time International Ratio 1.37ratio Activated Partial Thromboplast Time 29.2sec (22.8-33.0) Sodium Level 141mEq/L (134-144) Potassium Level 4.0mEq/L (3.5-5.2) Chloride Level 104mEq/L (97-108) Carbon Dioxide Level 20mmol/L (18-29) Blood Urea Nitrogen 18mg/dL (8-27) Creatinine 0.94mg/dL (0.76-1.27) Estimat Glomerular Filtration Rate 81mL/min (>59) Glucose Level 143mg/dL (60-99) Calcium Level 8.7mg/dL (8.5-10.1) Total Bilirubin 1.1mg/dL (0.0-1.2) Aspartate Amino Transf (AST/SGOT) 41U/L (0-50) Alanine Aminotransferase (ALT/SGPT) 21U/L (0-44) Alkaline Phosphatase 170U/L (25-160) Troponin T 0.103ug/L (0.0-0.011) Total Protein 7.5g/dL (6.4-8.4) Albumin 3.4g/dL (3.4-5.0) Re-Eval/Medical Decision Source of Hx: Old records, EMS Patient Discharge & Departure Referrals: Phill Knutson MD (PCP) Presley Nesbitt MD May 15, 2017 16:58 Phill Knutson MD (PCP) Presley Nesbitt MD May 15, 2017 16:58
--- NOTE | 2017-05-15 17:08 | ED.REPORT ---
HPI-Neurologic Deficit Date of Service May 15, 2017 ED Provider: Presley Nesbitt MD An 87 year old male on Warfarin with a history of CVA x2 with speech deficits, atrial fibrillation, aortic stenosis and CHF is brought to the ED via EMS due to a possible stroke. The pt was last seen normal at 15:30 while playing cards with a family member. Slight difficulty speaking was noted, but this was assumed to be baseline due to his previous CVA speech deficits. He was visited again at 16:10, at which point he had significant right arm and leg weakness and a right-sided facial droop. He denies headache or chest pain. The pt had his first major stroke in 2012, and received TPA at that time. He had residual speech deficits but no motor deficits per daughter. The pt's family suspects that he may not have been taking his Warfarin regularly. Nursing Notes Stated Complaint: RIGHT SIDE WEAKNESS Nursing Notes Reviewed: Yes Allergies: Coded Allergies: No Known Allergies (Verified Allergy, Unknown, 01/11/17) Scheduled Lisinopril (Lisinopril) 2.5 Mg Tablet 2.5 MG PO DAILY Metoprolol Tartrate (Metoprolol Tartrate) 25 Mg Tablet 25 MG PO DAILY Pravastatin (Pravastatin) 40 Mg Tablet 40 MG PO DAILY Spironolactone (Spironolactone) 25 Mg Tablet 25 MG PO DAILY Torsemide (Torsemide) 10 Mg Tablet 5 MG PO DAILY Warfarin Sodium (Warfarin Sodium) 4 Mg Tablet 4 MG PO Q2DAY alternates with 3mg q2d Warfarin Sodium (Warfarin Sodium) 3 Mg Tablet 3 MG PO Q2DAY alternates with 4mg q2d Scheduled PRN Docusate Sodium (Colace) 100 Mg Capsule 100 MG PO BID PRN PRN For Constipation Nitroglycerin SL (Nitroglycerin SL) 0.4 Mg Tab.subl 0.4 MG SL PRN For Chest Pain oxyCODONE-Acetaminophen 5-325 mg (oxyCODONE-Acetaminophen 5-325 mg) 1 Each Tablet 1 TAB PO Q4-6H PRN PRN For Pain General Time Seen by Provider: 16:59 Chief Complaint Other (Possible stroke) Hx Obtained From: Patient, Daughter, EMS Arrived By: Ambulance Sudden in Onset?: Yes Onset Occurred: 1 - 4 hours ago Symptom Duration: Since onset Progression Since Onset: Gradually improving Recent Healthcare: Recent doctor visit, Recent hospitalization Similar Sx Previous: Yes Past Medical History Past Medical History 1. 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 Received TPA and had resultant RUE paresis which improved. 2. 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 Hyperlipidemia 4. Atrial fibrillation (EMR indicates h/o warfarin use) 5. RBBB and Left anterior bifascicular block 6. Congestive heart failure 7. History of aortic stenosis 8. CVA x2 Past Surgical History Left hip Replacement Surgery Reports: Appendectomy Smoking History Never Smoker Social History Alcohol Use: Denies alcohol use Drug Use: Denies drug use Other Social History: Good social support, Local resident Ambulatory Status Independent Review of Systems Unable to Obtain ROS Patient condition Physical Exam Physical Exam Notes: initial NIH: 13 per nursing staff, pt keenly alert, follows commands but dense aphaia, able to communicate clearly with yes and no. L facial droop, arm and leg drift. Initial Vital Signs Vital Signs (First) Date Time Temp Pulse Resp B/P Pulse Ox O2 Delivery O2 Flow Rate FiO2 05/15/17 17:06 36.8 97 21 115/89 96 Room Air 05/15/17 19:30 3 Initial VS: Reviewed General/Constitutional: Awake, Alert not following commands Head / Eyes: Atraumatic, Normocephalic, PERRL, EOMI Respiratory / Chest: Atraumatic, Breath sounds NL, Breath sounds = bilat, No respiratory distress Cardiovascular: Regular rhythm Heart Rate / Rhythm: Positive: Irreg irregular rhythm 3/6 systolic murmur, upper right sternal border no carotid bruit Neurologic: Oriented X3 right-sided facial droop right arm drift right leg drift ENT: Atraumatic, Airway patent, Mucous membranes moist Neck: Atraumatic, Supple, Full range of motion Abdomen: Atraumatic, Soft, Non-tender Back: Atraumatic, Full range of motion Upper Extremity / MS: Atraumatic, Full range of motion Lower Extremity / Pelvis / MS: Atraumatic, Full range of motion Skin: Atraumatic, Color NL, No rash, Warm, Dry Psychiatric: Mood NL Interpretation & Diagnostics Interpretation & Diagnostics: CT Angio Head and Neck: IMPRESSION: 1. No prominent loss of vasculature is appreciated allowing for the old left frontal and parietal ischemic infarct. 2. 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 3. 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 Right posterior cerebral artery arises from the anterior circulation. No aneurysms. No bleeds. 4. Atherosclerotic plaque involving the internal carotid arteries but no greater stenosis than 50% is seen at any point. Dictated by: Elliot Felix M.D. on 05/15/2017 at 18:26 , Dr. Choudhury is aware of the findings. Approved by: Elliot Felix M.D. on 05/15/2017 at 18:48 Lab Results Interpretation Result Diagram: 05/15/17 1710 05/15/17 1710 Test 05/15/17 17:10 White Blood Count 7.3th/mm3 (3.8-10.1) Red Blood Count 3.86mil/mm3 (4.40-5.80) Hemoglobin 10.5g/dL (13.8-17.2) Hematocrit 33.6% (41.0-50.0) Mean Corpuscular Volume 87.0fL (81-100) Mean Corpuscular Hemoglobin 27.2pg (27.0-35.0) Mean Corpuscular Hemoglobin Concent 31.3% (32.0-37.0) Red Cell Distribution Width 15.8% (12.3-15.4) Platelet Count 274bil/L (150-400) Neutrophils (%) (Auto) 67.4% (40-74) Lymphocytes (%) (Auto) 14.8% (14-46) Monocytes (%) (Auto) 12.4% (4-12) Eosinophils (%) (Auto) 4.2% (0-5) Basophils (%) (Auto) 1.1% (0-3) Prothrombin Time 14.7sec (8.1-12.5) Prothromb Time International Ratio 1.37ratio Activated Partial Thromboplast Time 29.2sec (22.8-33.0) Sodium Level 141mEq/L (134-144) Potassium Level 4.0mEq/L (3.5-5.2) Chloride Level 104mEq/L (97-108) Carbon Dioxide Level 20mmol/L (18-29) Blood Urea Nitrogen 18mg/dL (8-27) Creatinine 0.94mg/dL (0.76-1.27) Estimat Glomerular Filtration Rate 81mL/min (>59) Glucose Level 143mg/dL (60-99) Calcium Level 8.7mg/dL (8.5-10.1) Total Bilirubin 1.1mg/dL (0.0-1.2) Aspartate Amino Transf (AST/SGOT) 41U/L (0-50) Alanine Aminotransferase (ALT/SGPT) 21U/L (0-44) Alkaline Phosphatase 170U/L (25-160) Troponin T 0.103ug/L (0.0-0.011) Total Protein 7.5g/dL (6.4-8.4) Albumin 3.4g/dL (3.4-5.0) Lab Results Interpretation: INR: 1.37 troponin: 0.103 CT Head Interpretation IMPRESSION: Old left frontal parietal ischemic infarct. No acute abnormality is seen. Specifically no blood. This study fulfills neurological imaging criteria for inclusion or exclusion of acute stroke therapies based on available published neurological guidelines. Dictated by: Elliot Felix M.D. on 05/15/2017 at 17:17 ER clinician involved with this case was notified by phone at the time of this dictation Approved by: Elliot Felix M.D. on 05/15/2017 at 17:21 Interpretation / Wet Read by: Interpret - Radiologist Re-Eval/Medical Decision Med Decision/Clinical Course 87-year-old male with a history of atrial fibrillation and prior strokes. The patient is reportedly taking warfarin however his INR turned out to be subtherapeutic at 1.37. He had no other contraindications to TPA administration and presented well within the three-hour window. Administration of TPA was delayed by the patient's initial refusal of TPA and we had to wait for the INR result. He was counseled specifically about the risks including possible fatal intracranial hemorrhage and he has his daughter were also informed that I would anticipate some level of increased risk given his advanced age and the fact that he was on warfarin. He did request TPA. CT angiogram was subsequently performed without discovery of actionable lesion Following tPA administration at one point he had some tachycardia and appeared to be experiencing some emotional stress, arguing with his family. He was given lorazepam 0.5 mg IV and metoprolol 5 mg IV with improvement in his affect and blood pressure as well as heart rate. Source of Hx: Old records Re-Evaluation/Progress #1: Time of Eval: 17:21 Re-Evaluation/Progress Note: Pt rechecked and further physical exam is performed. Pt refuses TPA at this time. Re-Evaluation/Progress #2: Time of Eval: 17:38 Re-Evaluation/Progress Note: Pt rechecked and informed of his current INR and that he is a TPA candidate. Pt accepts the plan for TPA administration. The diagnosis and plan for admission are discussed. The pt understands and agrees with the plan. All questions are addressed at this time. Re-Evaluation/Progress #3: Time of Eval: 19:31 Re-Evaluation/Progress Note: Pt rechecked, who is becoming agitated and slightly tachycardic. Appropriate medications are administered. Consultation #1: Call Returned at: 17:49 Note: Consulted with Dr. Robledo, [facility] neurology, regarding pt's case. Dr. Robledo agrees with the plan for CT angiogram and will review pt's case. Consultation #2: Referral / Consult Name: Beryl Last MD Consulted With: Neurology Call Returned at: 18:02 Rigging Loft Mechanic: Will see patient, Agrees with eval, Agrees with plan Note: Consulted with Dr. Last, neurology, regarding pt's case. Dr. Last agrees with the evaluation and will see the pt. Consultation #3: Call Returned at: 18:36 Note: Spoke with [facility] neurology. Pt's images have been reviewed. Consultation #4: Referral / Consult Name: Reji Riley MD Consulted With: Hospitalist Call Returned at: 19:19 Rigging Loft Mechanic: Agrees with eval, Agrees with plan, Accepts admit Note: Spoke with Dr. Riley, hospitalist, regarding pt's case. Dr. Riley agrees with the evaluation and agrees to admit the pt. Consultation #5: Call Returned at: 19:43 Rigging Loft Mechanic: Agrees with eval Note: Consulted with Dr. Robledo regarding pt's case. Dr. Robledo is informed of radiology results. Counseled Regarding: Diagnosis, Lab results, Need for admission Discharge & Departure Impression: Primary Impression: CVA (cerebral vascular accident) CVA mechanism: embolism Laterality of affected vessel: left Disposition: ADMITTED TO HOSPITAL Discharge Condition All VS Reviewed: Yes Condition: Stable Referrals: Phill Knutson MD (PCP) Crit Care Except Billable Proc Time Spent: 30-74 minutes Services Performed: Patient management by me, Time spent at bedside, Reviewing test results, Reviewing imaging, Discussing patient care, Documentation in record, Time with fam/surrogate Scribe Attestation Portions of this note were transcribed by Sergio Yoon. I, Dr. Choudhury personally performed the history, physical exam and medical decision-making; I reviewed and confirmed the accuracy of the information in the transcribed note. Signed by: Chilango Gillette, 05/15/2017 and 2139. copies to: Phill Knutson MD, Donald L MD May 15, 2017 17:07 SERGIO YOON May 15, 2017 17:16
[2017-05-15 17:14] LABS: BASOPHILS % (AUTO) 1.1 % (0-3); EOSINOPHILS % (AUTO) 4.2 % (0-5); MONOCYTES % (AUTO) 12.4 % (4-12); Mean Corpuscular Hemoglobin 27.2 pg (27.0-35.0); NEUTROPHILS % (AUTO) 67.4 % (40-74); Platelet Count 274 bil/L (150-400)
--- NOTE | 2017-05-15 17:23 | DRSVH ---
PROCEDURE: CT BRAIN (TPA) ([id number]) INDICATIONS: Stroke TECHNIQUE: Noncontrast 4.5 mm thick angled axial sections acquired from the foramen magnum to the vertex, with c oronal reformats. COMPARISON: [facility], CT, CT BRAIN WO CON, 07/27/2015, 21:22. [facility], CT, BRAIN (TPA), 01/14/2013, 18:41. FINDINGS: Image quality: Good CSF spaces: Basal cisterns are patent. No extra-axial fluid collections. The ventricles are symmet jacquelin in size and shape. Brain: No intracranial bleeds or masses. There is an old focus of ischemic infarct involving the lef t frontal and portion of the left parietal lobe in the left middle cerebral artery distribution. The appearance is unchanged since the CT of 07/27/15. No acute changes are seen. No blood is seen. No mass effect. There is cerebral volume loss for age, with resultant ventricular and sulcal prominence. Th ere are periventricular and deep white matter chronic small vessel ischemic changes. There is intrac ranial internal carotid artery atherosclerosis. Skull and face: Calvarium and visualized facial bones appear intact, without suspicious lesions. Sinuses: Visualized sinuses and mastoids are clear. IMPRESSION: Old left frontal parietal ischemic infarct. No acute abnormality is seen. Specifically no blood. This study fulfills neurological imaging criteria for inclusion or exclusion of acute stroke therapie s based on available published neurological guidelines. Dictated by: Elliot Felix M.D. on 05/15/2017 at 17:17 ER clinician involved with this case was n otified by phone at the time of this dictation Approved by: Elliot Felix M.D. on 05/15/2017 at 17:21
[2017-05-15 17:33] LABS: INR 1.37 ratio
[2017-05-15 17:39] LABS: TROPONIN T 0.103 ug/L (0.0-0.011)
[2017-05-15] MEDS ORDERED: Alteplase Dose Per Pharmacist XX ONE (17:40)
[2017-05-15] MEDS ORDERED: 0.9% Sodium Chloride 100 ML ONE (17:50)
[2017-05-15] MEDS ORDERED: Alteplase (No Charge) 1 mg/mL Syringe IV ONE (17:55)
[2017-05-15] MEDS ORDERED: ALTEPLASE IV ONE (17:55)
[2017-05-15] MEDS ORDERED: 0.9% Sodium Chloride 100 ML IV SCH (18:45)
--- NOTE | 2017-05-15 18:50 | DRSVH ---
PROCEDURE: CT ANGIO HEAD AND NECK (P) INDICATIONS: Stroke - tPA Infusing TECHNIQUE: Pre-contrast 4.5 mm thick sections acquired from the foramen magnum to the vertex. After the adminis tration of intravenous contrast, 1 mm thick sections acquired from the aortic arch through the [place] of [place]. Post-contrast 4.5 mm thick sections then re-acquired from the foramen magnum to the vert ex. 3-dimensional xabbwru-elgdaheyz-fqmygkdikl (MIP) and/or volume rendering reformats were acquired of the central intracranial vasculature and neck separately. For radiation dose reduction, the foll owing was used: automated exposure control, adjustment of mA and/or kV according to patient size. COMPARISON: [facility], CT, BRAIN (TPA), 05/15/2017, 17:05. FINDINGS: Image quality: Good BRAIN: CSF spaces: Ventricles are normal in size and shape on the previous old ischemic infarct involving t he left frontal and temporal lobes. Atrophic changes diffusely present as well.. Basal cisterns are patent. No extra-axial fluid collections. Brain: No midline shift. No intracranial bleeds or masses. Feliz-white matter interface appears int act. Skull and face: Calvarium and facial bones appear intact, without suspicious lesions. Orbits appear normal. Sinuses: Sinuses and mastoids are clear. HEAD CT ANGIOGRAPHY: Anterior circulation: Intracranial internal carotid arteries are normal in size and flow. The flow within the paired anterior cerebral arteries is normal and symmetric. There is an attenuated A1 segme nt on the right. The flow within the middle cerebral arteries is normal and symmetric. I see no defic it currently into the left hemisphere as an extension of the right middle cerebral artery old infarct . The anterior communicating artery is seen. No aneurysms are seen. Posterior circulation: Visualized portions of the vertebral arteries demonstrate a very attenuated r ight vertebral although it is open and contributes to the basilar. There is a robust left vertebral. They join to form a normal appearing basilar artery. Flow within the posterior cerebral arteries is normal and symmetric. The left arises from the anterior circulation. No aneurysms are seen. NECK CT ANGIOGRAPHY: Carotid system: The great vessels demonstrate a conventional anatomy as they arise from the aortic a [facility]. The origins of the common carotid arteries appear patent. The common carotid arteries demonstr ate normal caliber and courses. The bifurcation regions are both widely patent. There is scattered a therosclerotic plaquing. The internal carotid arteries demonstrate normal calibers and courses. Posterior circulation: The origins of the vertebral arteries both appear patent. The more superior extracranial portions of both vertebral arteries also demonstrate normal courses. They join to form a normal appearing basilar artery. Soft tissues: Visualized neck soft tissues demonstrate no suspicious abnormalities. Bones: No suspicious bony lesions. Visualized cervical spine appears normally aligned. IMPRESSION: 1. No prominent loss of vasculature is appreciated allowing for the old left frontal and parietal isc hemic infarct. 2. 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 3. 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 Right posterior cerebral artery arises from the anterior circu lation. No aneurysms. No bleeds. 4. Atherosclerotic plaque involving the internal carotid arteries but no greater stenosis than 50% is seen at any point. Dictated by: Elliot Felix M.D. on 05/15/2017 at 18:26 , Dr. Choudhury is aware of the findings. Approved by: Elliot Felix M.D. on 05/15/2017 at 18:48
[2017-05-15] MEDS ORDERED: Labetalol 5 mg/mL 4 mL Inj IVPUSH PRN (19:50)
[2017-05-15] MEDS ORDERED: hydrALAZINE 20 mg/mL Inj IVPUSH PRN (19:50)
[2017-05-15] MEDS ORDERED: Ondansetron 2 mg/mL 2 mL Inj IVPUSH PRN (19:50)
[2017-05-15] MEDS ORDERED: MeTOProlol 1 mg/mL 5 mL Inj IVPUSH ONE (19:50)
[2017-05-15 20:15] LABS: APPEARANCE,URINE CLEAR (CLEAR,HAZY); COLOR,URINE YELLOW (YELLOW); OCCULT BLOOD,URINE NEGATIVE (NEGATIVE)
[2017-05-15] MEDS ORDERED: 0.9% Sodium Chloride 500 ML IV ONE (22:55)
--- NOTE | 2017-05-15 23:00 | PCM.HPMED ---
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 The patient in the room currently denies any issues at all which brought him to the hospital. Stating he is unsure why he is here and on comprehensive review of systems the patient denies all. Discussing with the patient's FAMILY in the room as well as the patient's girlfriend Loly over the phone, the patient was last seen playing cards with family and friends at 3:30 without any issue. Loly states over the last several days the patient has not been complaining of any issues. 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 Loly states that the patient was not acting odd other than the difficulty moving his right arm. Loly states that Ivan's speech was not notably worse than at baseline, as he has expressive aphasia since a CVA in 2012. Family reports that since the patient was discharged from [facility] several months ago after a right hip partial arthroplasty revision after ORIF for a femur neck fracture that he has been likely noncompliant with his home medications. The patient has atrial fibrillation however his reportedly stated that he will only take half his normal dose of warfarin. The patient is independent at baseline. Review of Systems: A comprehensive review of systems was obtained and all are negative except for what is included in the history of present illness. Allergies Coded Allergies: No Known Allergies (Verified Allergy, Unknown, 01/11/17) Home Medications Metoprolol Tartrate 12.5 MG PO DAILY Pravastatin 40 MG PO DAILY Spironolactone 25 MG PO DAILY Torsemide 5 MG PO DAILY Warfarin Sodium 4 MG PO Q2DAY alternates with 3mg q2d Warfarin Sodium 3 MG PO Q2DAY alternates with 4mg q2d Docusate Sodium 100 MG PO BID PRN PRN For Constipation Nitroglycerin SL 0.4 MG SL PRN For Chest Pain oxyCODONE-Acetaminophen 5-325 mg 1 TAB PO Q4-6H PRN For Pain Lisinopril 2.5 MG PO DAILY from ED note not indicated in General records PMH 1. H/o 2 independent CVA's in 12/2012 with expressive aphasia. Received TPA after the first CVA but not the second and had resultant RUE paresis which improved. 2. 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 Hyperlipidemia 4. Atrial fibrillation (EMR indicates h/o warfarin use) 5. RBBB and Left anterior bifascicular block 6. 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 History of aortic stenosis 8. Psoriasis with psoriatic arthritis 9. Hypertension 10. 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 The patient is oriented to person place and time however has difficulty expressing. When asked where he was the patient was unable to express [facility] however when given the option school, [place], or hospital and he chose correctly, the patient was able to state he is in [facility], the patient was able to state his April however was unable to state the year but when given the option of President Loving, President Obama, or President Trump he again shows correctly. Eyes: Anisocoria with right pupil larger than left and right pupil less reactive to light, patient appears to lack ability to track right on EOM exam, peripheral visual jaquez were assessed but difficult to compute given the patient's expressive aphasia he was regularly wrong with the number of fingers, anicteric sclera, noninjected conjunctiva HENT: Normocephalic atraumatic, dry mucous membranes without central cyanosis, oropharynx clear without purulent exudate or cobblestoning mucosa Neck: Supple, trachea midline, without thyromegaly or JVD Cardiovascular: irregularly irregular rhythm, S1-S2 present, no S3-S4, significant systolic ejection murmurs noted in almost all auscultation posts including right heart boarder and apex, no rubs or gallops noted Lungs: mild crackles noted on auscultation bilaterally in the posterior inferior lung jaquez, without wheezing rales or rhonchi Abdomen: Soft, nontender, nondistended, tympanic to percussion, normal active bowel sounds, without organomegaly Extremities: Bilateral peripheral edema noted worst in the feet but up to the knee, No cyanosis clubbing noted, pulses intact bilaterally at dorsalis pedis and radial : No Dukes catheter in place Skin: Warm and dry MSK: 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, bicep, tricep, plantar and dorsi flexion, note decreased strength worst with right hand with associated loss of coordination and strength more than other areas Neuro: cranial nerves II through XII difficult to assess given both signs of expressive and receptive aphasia, patient did not stick out tongue but was midline and able to move left and right, facial sensation appears intact as well as muscle function however unable to inflate cheeks or test muscles of os, hearing intact, eye motion discrepancy and pupil dysfunction noted above, noted dyskinesia, dysmetria, and dysdiadochokinesia noted on right with difficulty most notable in upper extremity, pronator drift positive on right, Romberg test not assessed given fall risk post TPA Psych: Normal mood and affect Lab and Diagnostics Result Diagram: 05/15/17 1710 05/15/17 1710 X-Rays, CTs and MRIs CT BRAIN (TPA) IMPRESSION: Old left frontal parietal ischemic infarct. No acute abnormality is seen. Specifically no blood. This study fulfills neurological imaging criteria for inclusion or exclusion of acute stroke therapies based on available published neurological guidelines. Dictated by: Elliot Felix M.D. on 05/15/2017 at 17:17 ER clinician involved with this case was notified by phone at the time of this dictation Approved by: Elliot Felix M.D. on 05/15/2017 at 17:21 CT ANGIO HEAD AND NECK IMPRESSION: 1. No prominent loss of vasculature is appreciated allowing for the old left frontal and parietal ischemic infarct. 2. 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 3. 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 Right posterior cerebral artery arises from the anterior circulation. No aneurysms. No bleeds. 4. Atherosclerotic plaque involving the internal carotid arteries but no greater stenosis than 50% is seen at any point. Dictated by: Elliot Felix M.D. on 05/15/2017 at 18:26 , Dr. Choudhury is aware of the findings. Approved by: Elliot Felix M.D. 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 # Acute cerebrovascular accident - Reported onset between 15:30 and 16:10 with difficulty moving right extremities - CT scan without contrast failed to reveal a hemorrhagic cause, patient's INR was checked given chronic warfarin therapy and noted to be low making this likely an embolic phenomenon due to subtherapeutic warfarin with atrial fibrillation - Case was discussed with [place] neurologist who agreed the patient was a candidate for TPA, which was given at 17:56 well within the acceptable window of under 4 hours - Patient was admitted to the CCU under post TPA protocol including regular nursing neuro checks - At admission patient remains to have right sided deficits as well as components of both expressive and receptive aphasia - post TPA CT angiogram showed no significant acute stenosis, aneurysm, bleed or acute infarct, however there was noted attenuation of vasculature on the right - On-call neurologist was consulted and Dr. Last will see the patient on - ECHO and MRI ordered for 05/17as part of the CCU post TPA protocol order set - Goal systolic blood pressure between 140 and 170, patient's blood pressure on admission was normotensive, 500 mL fluid bolus and IV maintenance fluids at 100 to try and improve blood pressure closer to goal - Patient reportedly has a living will stating wish to be DNR/DNI, the patient is currently not competent to make changes to his living will, patient's brother -in-law is reportedly the DPOA's phone number on the board - Patient failed swallow evaluation currently nothing by mouth - Initiate statin therapy once able to swallow # Elevated troponin of unknown significance - Patient has a history of cardiac amyloidosis as well as RBBB and Left anterior bifascicular block - Troponin and EGD of 0.1 with EKG changes including T-wave inversion and ST elevation in anterior lateral leads - Trend troponins, echocardiogram ordered for the a.m., if troponins remain elevated consider a stat echocardiogram to check for wall motion abnormalities - It is unlikely but not impossible that the patient is suffering both a stroke as well as a heart attack concomitantly - consider likely options include demand ischemia due to reactive hypertension from embolic stroke however the patient has remained normotensive since being seen in the emergency department - Patient is currently DNR/DNI described above, if intervention is required for a possible myocardial infarction CODE STATUS will likely need to be readdressed with the DPOA, family is aware of this possibility # Chronic atrial fibrillation/flutter - [facility] records felt indicated if this is paroxysmal or persistent - The patient was on warfarin therapy with INRs checked by the [facility]madin clinic however has been noncompliant with warfarin dosing and INR checks - Patient was reportedly taking metoprolol 12.5 mg intermittently for atrial fibrillation however it is uncertain how compliant he was with this medication - INR at admission of 1.37 - [address] order for pharmacy to initiate warfarin therapy 24 hours post, likely will require bridging doses of Lovenox - Echocardiogram to assess for wall motion abnormalities as well as atrial thrombus for possible source of emboli # 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 - Records indicate an echo performed in 2015 with an EF of 40-45% - Patient was reportedly seen by a specialist at the [facility] without further treatment required, with records indicating the patient was advised to avoid beta blockers - Patient takes metoprolol 12.5 mg daily as well as spironolactone 25 mg daily and torsemide 5 mg daily however it is uncertain how compliant he was with his medications - Initiation of medications after 24 hours given permissive hypertension for CVA # Chronic Hyperlipidemia - Lipid panel ordered - Patient takes daily pravastatin 40 mg - Initiate statin therapy once able to swallow # Chronic hypertension - Patient takes metoprolol 12.5 mg daily as well as spironolactone 25 mg daily and torsemide 5 mg daily - Initiation of medications after 24 hours given permissive hypertension for CVA # Chronic aortic stenosis - Echocardiogram to assess for valve pathology as well as wall motion abnormalities as well as atrial thrombus for possible source of emboli # Chronic anemia - Hemoglobin of 10.5 on admission - Baseline hemoglobin appears to be closer to 12 - Monitor given recent TPA administration DVT prophylaxis: Currently Contraindicated given recent TPA administration GI prophylaxis: Not indicated at this time CODE STATUS DNR/DNI The patient is admitted to the CCU under inpatient status given her presenting symptoms, likely diagnosis, possible complications, and required treatments expected length of stay is greater than 2 midnights. Pain Evaluation: Adequate Pain Control GI Prophylaxis: Not indicated VTE Prophylaxis Indicated: Contraindicated (contraindicated given recent TPA administration) VTE Prophylaxis: Other (post-TPA) Resuscitation Status: DNR/DNI:Do Not Resuscitate/Intubate Time spent 1 hour critical care time Attending Statement The patient was seen and examined together with Dr. Preciado on 05/15 and I agree with the history, exam and plan as outlined in the note above. Alden Sung DO May 15, 2017 23:00 Reji Riley MD May 16, 2017 02:04
[2017-05-15] MEDS: 0.9% Sodium Chloride 1,000 ML IV SCH (23:15)
[2017-05-16] VITALS (8 sets, daily range): BP systolic 102–138; BP diastolic 87–114; PULSE 88–120; RESP 14–21; O2SAT 85–100
--- NOTE | 2017-05-16 01:44 | NUR ---
P) Admit Pt. admitted to at approx. 2210 last night, R arm weaker than L, some R facial droop, and definite word searching and expressive aphasia. Pt. seems alert but very restless in bed, initially seemed to have some R leg weakness, now moving both legs easily but does not want to stay in bed. I)Close monitoring, pt. continues to deny pain including chest pain. AC IV oozing small amount of blood, and dime sized skin tear noted under foam tape placed by EMS. E) Resting quietly between escape attempts, currently denying he had a stroke or is in the hospital but this may be his nature.
[2017-05-16 06:50] LABS: Phosphorus 3.8 mg/dL (2.5-4.9)
[2017-05-16 06:52] LABS: TROPONIN T 0.123 ug/L (0.0-0.011)
[2017-05-16 08:50] LABS: Mean Corpuscular Hemoglobin 26.5 pg (27.0-35.0)
[2017-05-16 08:51] LABS: BASOPHILS % (AUTO) 1.1 % (0-3); EOSINOPHILS % (AUTO) 1.8 % (0-5); MONOCYTES % (AUTO) 9.7 % (4-12); NEUTROPHILS % (AUTO) 76.5 % (40-74); Platelet Count 252 bil/L (150-400)
--- NOTE | 2017-05-16 09:56 | NUR ---
NUTRITION ASSESSMENT: ASSESS: Pt is a 87yo M admitted to CCU for CVA. Pt has been experiencing R arm weaker than L, some R facial droop, and definite word searching and expressive aphasia. Currently NPO until ST eval. Pt failed RN ST cantu in ED. PMHX: CVA, HLD, Afib, HTN LABS: Reviewed. Glu 124, Ca 8.4, T.bili 1.4, Alk phos 165, Alb 3.1 MEDS: Reviewed. GI: 0 BM SKIN: no major issues noted CURRENT WTS: 69.7kg, BMI 22.7kg/m2, IBW: 72.7kg DIET: NPO EST. NEEDS: Kcals: 1745-2090kcal/day (25-30kcal/kg) Pro: 70-85g/day (1.0-1.2g/kg) NUTRITION DIAGNOSIS: 1.) Inadequate oral intake related to decreased ability to consume sufficient energy as evidenced by current NPO status NUTRITION INTERVENTION: 1.) Recommend advance diet per ST. Will monitor NPO Status MONITOR / EVAL: NPO, ST, wt, GI, labs, POC, nutrition status. Will continue to monitor per high nutrition risk guidelines
[2017-05-16] MEDS: 0.9% Sodium Chloride 1,000 ML IV SCH ×2 (10:23→18:00)
--- NOTE | 2017-05-16 10:30 | DRSVH ---
PROCEDURE: X-RAY CHEST ONE VIEW, PORTABLE ([id number]) INDICATIONS: hypoxia TECHNIQUE: One view of the chest was acquired. COMPARISON: [facility], CR, XR CHEST 1VW (PORTABLE), 06/22/2016, 10:37. FINDINGS: Surgical changes and devices: None. Lungs and pleura: Shallow inspiration. Elevation right hemidiaphragm with bibasilar right greater th an left pulmonary opacities. Mediastinum: Mediastinal contours appear normal. Heart size is normal. Bones and chest wall: No suspicious bony lesions. Overlying soft tissues appear unremarkable. Old right rib fractures IMPRESSION: Bibasilar atelectasis or infiltrates. Right hemidiaphragm elevation. Dictated by: Pepe Chung M.D. on 05/16/2017 at 10:26 Approved by: Pepe Chung M.D. on 05/16/2017 at 10:28
--- NOTE | 2017-05-16 12:09 | NUR ---
Evaluation completed. Please go to "Notes" then click on "Assessments and Notes" (bottom left corner of screen). Then select appropriate discipline tab on top of screen.
--- NOTE | 2017-05-16 13:22 | DRSVH ---
PROCEDURE: MRI BRAIN WITHOUT CONTRAST ([id number]) INDICATIONS: Post tPA Infusion TECHNIQUE: Non-contrast axial T1 spin echo, axial T2 fast spin echo, sagittal and axial FLAIR, coronal T2 fast s pin echo, axial gradient echo, axial diffusion and ADC through the brain. COMPARISON: [facility], CT, CT ANGIO BRAIN AND NECK, 05/15/2017, 18:04. [facility]OCOL (PNL), 09/07/2013, 6:38. FINDINGS: Image quality: Partially degraded by motion artifact. CSF spaces: Ventricles appear symmetric in size and shape. Basal cisterns are patent. No extra-axi al fluid collections. Brain: There is focal 20 mm diameter region of low gradient echo signal intensity within the left med ial temporal lobe. There is cerebral volume loss for age. There are periventricular and deep white m atter chronic small vessel ischemic changes. Brainstem appears normal. Diffusion-weighted images de monstrate a 34 mm diameter region of elevated signal intensity within the left medial temporal lobe, which demonstrates low ADC map signal, and moderate FLAIR signal elevation. There are 2-3 small adjac ent 5 mm diameter foci of elevated diffusion and FLAIR signal within the left posterior and mid thala mus, which also demonstrate increased FLAIR signal intensity. A moderate to large chronic left MCA di stribution infarct is present, as before. Normal intravascular flow voids are present. Skull and face: Calvarial bone marrow is normal in signal. Orbits are normal. Sinuses: Sinuses and mastoids are clear. IMPRESSION: 1. Subacute left medial temporal lobe hemorrhagic infarct. 2. Small subacute infarcts within the left thalamus. 3. 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 4. Volume loss and small vessel ischemic disease. 5. Findings discussed with Dr. Barrios on 05.18.17 at 13:23. Dictated by: Elena Lazar M.D. on 05/16/2017 at 13:14 Transcribed by: CHERELLE on 05/16/2017 at 13:21 Approved by: Elena Lazar M.D. on 05/16/2017 at 13:21
--- NOTE | 2017-05-16 13:47 | CONS ---
[address] [address] CONSULTATION REPORT PATIENT: GANGA MONTILLA : 1930 MR#: [id number] ADMIT: 05/15/2017 JOB ID: [id number] DATE OF SERVICE: 05/16/2017 NEUROLOGY CONSULTATION: REQUESTING PHYSICIAN: Dirk Choudhury MD REASON FOR CONSULTATION: Acute stroke. HISTORY OF PRESENT ILLNESS: The patient is an 87-year-old gentleman with prior strokes attributed to atrial fibrillation who presented to emergency department within 30 minutes of acutely developing right-sided weakness over the face, arm, and leg, and aphasia. The patient has received tPA in the past for a stroke in 2012. He also had not been compliant with his warfarin. According to his daughters, who help to provide the history and are at the bedside, he decided that he would only take two of the pills instead of the required dose of warfarin. Medical management has been very difficult according to his daughters since he has decided not to see providers and not to take certain medications at various times. He apparently also has sent back his oxygen, determining that was no longer needed. His daughter could not tell me why oxygen had been prescribed. The patient was appropriately evaluated for acute stroke and deemed a candidate for tPA by Dr. Choudhury. His NIH stroke scale was 13. Blood pressure was noted as 115/89 with pulse 97, and by telemetry he was in atrial fibrillation. The patient was afebrile. The care for this patient was coordinated with [facility]. Dr. Choudhury spoke with Dr. Erik Lilly and with myself. The patient's CT angio was recommended by both doctors, myself and Dr. Lilly. CT angiography did not show any significant stenosis in the great vessels of the neck but there was a diminished right vertebral artery noted. There was also an attenuated right A1. The patient's prior strokes in the left frontal and parietal head region were noted. Dr. Lilly concurred with tPA for this patient based on INR of 1.37 and no obvious signs of stroke on head CT. He was deemed not a candidate for endovascular treatment without any evidence of occlusion in the anterior or middle cerebral artery. There was a delay in initiating tPA due to concerns of the family and also the patient's use of warfarin. Ultimately the family and the patient concurred. Dr. Choudhury requested Neurology consultation after admission for continued management and evaluation for acute stroke. PAST MEDICAL HISTORY: 1. 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 2. Aortic enlargement. 3. Hyperlipidemia. 4. Atrial fibrillation. Subtherapeutic on warfarin. 5. 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 6. Congestive heart failure. 7. Aortic stenosis. PAST SURGICAL HISTORY: Patient has a history of left hip replacement and appendectomy. SOCIAL HISTORY: The patient does not smoke, nor has he ever. He does not drink alcohol or use drugs. He lives in [place]. He has two adult daughters, one who lives in [place]. He lives on his own. 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 REVIEW OF SYSTEMS: The patient states that he is fine, however right upper extremity weakness and aphasia intermittently has been appreciated. All other systems reviewed and reported as negative. DRUG ALLERGIES: No known drug allergies. MEDICATIONS: As an outpatient: Lisinopril, metoprolol, pravastatin, spironolactone, torsemide, warfarin, p.r.n. nitroglycerin, oxycodone, docusate. Inpatient medications: IV fluids. PHYSICAL EXAMINATION: The patient is pleasant and cooperative, in no apparent distress. Blood pressure 134/93. Heart rate varies from 78-122, atrial fibrillation noted on telemetry and EKG. Patient is afebrile. Respiratory rate 21, pulse oximetry 99% on 5 L nasal cannula. Head: Normocephalic, atraumatic. No evidence of carotid bruits. Lungs: Clear to auscultation. Cardiac: Irregular heart rate. Holosystolic murmur. Extremities: No edema. Good pedal pulses. Skin warm to the touch. NEUROLOGIC EXAMINATION: The patient is alert and oriented x3, with intermittent aphasia. He appears to understand questions but has a fluent aphasia calling his daughter his sister. Further cognitive evaluation was not pursued due to aphasia and would be limited. Cranial nerves: Pupils equally reactive to light and accommodation. Extraocular movements intact. Visual jaquez intact to confrontation. No facial asymmetry. Sensation intact on the face bilaterally. Tongue midline. Palate raises symmetrically. SCM and shoulder shrug, as well as hearing, appear to be intact bilaterally. Motor: Pronator drift and weakness in machine installer noted in the right upper extremity. Intact throughout otherwise. Deep tendon reflexes: Intact throughout with plantar reflex flexor bilaterally. Sensation: Intact to pinprick, soft touch, vibration, and proprioception upper and lower extremities. This may be limited and is questionable given the patient's aphasia. Coordination and gait: Both appear to be reasonably intact with this limited examination. IMAGING STUDIES: As per the history of present illness. LABORATORY STUDIES: As per the history of present illness. Hemoglobin/hematocrit is 10.4/34.5, UA negative. Troponin elevated at 0.123. Glucose elevated at 124. LDL cholesterol 87. ASSESSMENT AND RECOMMENDATION: The patient is an 87-year-old gentleman with acute right-sided weakness and aphasia yesterday who received tPA. Symptoms have improved but not completely resolved. I have not yet reviewed the MRI but will do so with the patient's family when it is completed. Recommend continuing to follow the stroke protocol and post tPA order sets. Most likely the patient's stroke is occurring as a result of his generalized noncompliance with medications and medical management and in specific warfarin. I did explain to his daughters that he will need better supervision for medications. It is likely that the patient also will need to be on oxygen. Apparently he was on oxygen as an outpatient. The need for this will need to be investigated by the hospitalist group. Thank you for this consultation. I will follow up with the MRI. Please call if needed. ADDENDUM: MRI read showing left medial temporal lobe infarct with hemorrhagic components. Small subacute infarct in the left thalamus as well thought to be consistent with the moderate to large left middle cerebral artery infarct. Discussed with hospitalist. Although this is a relatively small area of hemorrhage, the patient has atrial fibrillation, received tPA and will require a higher level of care and monitoring. Recommend transfer to [facility] for management MTDD
--- NOTE | 2017-05-16 14:22 | NUR ---
Evaluation completed. Please go to "Notes" then click on "Assessments and Notes" (bottom left corner of screen). Then select appropriate discipline tab on top of screen.
--- NOTE | 2017-05-16 15:23 | NUR ---
Hold per RN. Possible transfer for higher acuity needs. Shahab Ramsey, OTR/L
--- NOTE | 2017-05-16 16:09 | NUR ---
Social Work: Multidisciplinary Rounds Pt discussed in am rounds. Pt in CCU. Case management unable to see the patient at this time due high census. STONE PAVER will attempt to see the patient and assess for d/c needs tomorrow GISELA Craft
--- NOTE | 2017-05-16 16:40 | DRSVH ---
Located Within [facility] [address] [place] [address] Echocardiogram Report Name: GANGA MONTILLA SStudy Date: 05/16/2017 Height: 69 in Hospital Exam Location: [facility] Weight: 154 lb Gender: Male BSA: 1.8 m2 : 1930 Age: 87 yrs BP: 134/93 mmHg Reason For Study: Acute CVA with TPA and Elevated Troponin Ordering Physician: Mirlande Knutson Performed By: Caroline Vidal Referring Physician: HOSPITALIST [facility] Interpretation Summary The left ventricle is normal in size. There is severe concentric left ventricular hypertrophy. The ejection fraction is estimated to be 30-35%. There is no obvious LV thrombus. Compared to the prior exam, the left ventricular function is reduced. Myocardium has increased echo reflectance which is chronic seen since 2012. Differential diagnosis hypertensive heart disease or infilterative heart disease like amyloidosis in the right setting. There is no thrombus. A false chord is noted (normal variant). There is mild to moderate global hypokinesis of the left ventricle. There is inferior wall and the posterolateral wall severe hypokinesis (Unchanged). The right ventricle is mildly dilated. Right ventricular systolic function is mild to moderately reduced. There is severe biatrial enlargement. Both atria have remained unchanged in size since the prior echo exam. There is moderate mitral regurgitation. Compared to the prior echo study, there has been no change in the severity of mitral regurgitation. The aortic valve is heavily calcified. Leaflet mobility is severely reduced. Morphologically severe . The peak aortic velocity is 3.2 m/sec. The aortic valve mean gradient is 21 mmHg. The peak aortic velocity on the previous exam was 3.1 m/sec. There is mild aortic regurgitation. There is moderate to severe tricuspid regurgitation. Compared to the prior echo exam, there has been an increase in TR severity. The right ventricular systolic pressure is estimated at 38 mmHg assuming a right atrial pressure of 8 mm Hg. The ascending aorta is moderate-severely enlarged (4.8 cm in diameter. In 05/2016 it was 4.8 cm as well). Procedure: A two-dimensional transthoracic echocardiogram with color flow and Doppler was performed. The study quality was technically adequate. Comparison is made with the echocardiogram of 06/22/2016. The patient was in normal sinus rhythm during the exam. Left Ventricle: The left ventricle is normal in size. Left ventricular wall thickness is moderate-severely increased. There is severe concentric left ventricular hypertrophy. Myocardium has increased echo reflectance which is chronic seen since 2013. Differential diagnosis hypertensive heart disease or infilterative heart disease like amyloidosis in the right setting. There is no thrombus. A false chord is noted (normal variant). There is no thrombus. Compared to the prior exam, the left ventricular function is reduced. The ejection fraction is estimated to be 30-35%. There is mild to moderate global hypokinesis of the left ventricle. There is inferior wall and the posterolateral wall severe hypokinesis. Diastolic function could not be accurately assessed due to atrial fibrillation. Right Ventricle: The right ventricle is mildly dilated. The right ventricle appears to be hypertrophied. Right ventricular systolic function is mild to moderately reduced. Atria: The left atrium is severely dilated. Both atria have remained unchanged in size since the prior echo exam. There is severe biatrial enlargement. The right atrium is severely dilated. The interatrial septum is intact with no evidence for an atrial septal defect. Mitral Valve: The mitral valve leaflets appear thickened, but open well. There is mild to moderate mitral annular calcification. The mitral valve leaflets are mildly calcified. There is moderate mitral regurgitation. Compared to the prior echo study, there has been no change in the severity of mitral regurgitation. Aortic Valve: The aortic valve is heavily calcified. Leaflet mobility is severely reduced. The calculated aortic valve area is 1.1 cm2. The peak aortic velocity is 3.2 m/sec. The peak aortic velocity on the previous exam was 3.1 m/sec. The aortic valve mean gradient is 21 mmHg. LVOT DIAM: 2.4CM. LVOT ALAN: 0.7CM/S. LVOT/AV TVI RATIO: 0.22. There is mild aortic regurgitation. Tricuspid Valve: The tricuspid annulus is dilated. The tricuspid valve leaflets are thickened and/or calcified, but open well. There is moderate to severe tricuspid regurgitation. Compared to the prior echo exam, there has been an increase in TR severity. The right ventricular systolic pressure is estimated at 38 mmHg assuming a right atrial pressure of 8 mm Hg. Pulmonic Valve: The pulmonic valve is normal in structure and function. There is trace pulmonic regurgitation. Great Vessels: The aortic root is mildly dilated. The ascending aorta is moderate-severely enlarged. The ascending aorta is moderate-severely enlarged (4.8 cm in diameter. In 05/2016 it was 4.8 cm as well). The pulmonary artery is normal size. The IVC is of normal diameter and collapses less than 50% with a sniff. This suggests a right atrial pressure of 8 mm Hg. Pericardium/ Pleura There is no pericardial effusion. There is no pleural effusion. MMode/2D Measurements & Calculations LVIDd: 4.6 cm RA long axis LVOT diam LVIDs: 3.2 cm LA A2 area: 33.9 cm FS: 29.1 % LA A4 area: 29.3 cm RA area AoV Opening EPSS: 1.0 cm LA length (vol): 6.8 cm IVSd: 1.8 cm LA vol: 125.0 ml : 31.5 cm Ao root diam LVPWd: 1.8 cm LA vol index RA vol : 129.ml asc Aorta RA Diam: 4.8 cm IVC diam: 2.1 cm : 69.8 mm2 LV wang. diameter/BSA LV sys. diameter/BSA (cm/m^2): 2.5 (cm/m^2): 1.8 Doppler Measurements & Calculations Ao V2 max MV E max alan Med Peak E' Alan TR max alan : 320.0 cm/sec : 72.0 cm/sec : 266.1 cm/sec Ao max PG E/E' med: 33.8 TR max P.5 mmHg : 41.1 mmHg Lat Peak E' Alan Ao mean PG : 21.1 mmHg E/E' lat: 21.7 LVOT Max Alan E/e' average : 68.8 cm/sec ALIYA(I,D): 1.1 cm sev ratio MV dec time Ao V2 mean LV V1 max PG ALIYA indexed to BSA : 0.23 sec : 218.0 cm/sec (cm^2/m^2): 0.59 Ao V2 VTI: 54.0 cmLV V1 VTI : 12.5 cm ALIYA(V,D): 1.0 cm2 Reading Physician:NORM
--- NOTE | 2017-05-16 16:51 | NUR ---
CVA/Post TPA..Pt has had improving neuro scores throughout the am. At 0945 though became increasingly agitated due to not being able to "just walk to the bathroom". While attempting to have pt sit on edge of bed, pt struck out at nurse and insisted on getting out of bed. Once he was allowed to use the restroom, he settled and became more compliant. Taken to MRI with RN in attendance. Pt carolyn procedure well although was moving on the table intermittently during scan. This afternoon was noted to not be able to answer year he was born or what month it was.. answering with the word "Fine". Dr Rice updated, and noted his MRI has shown a bleed per Dr Solomon and that pt may need transfer to [facility]. Pt will be going to CT for another head CT before we proceed with transfer plans. Pt has become increasingly angry about his q 1 hour neuro assessments and is now refusing assessment and gestures to hit nurse. I spoke with MD who conversed with the pt and pt relayed his is angry about being asked the same questions all the time. Pt is agreeable to proceed with the CT but is refusing any further neuro checks at this time. aware.
--- NOTE | 2017-05-16 17:46 | DRSVH ---
PROCEDURE: CT BRAIN WITHOUT CONTRAST ([id number]) INDICATIONS: post stroke, bleed eval TECHNIQUE: Noncontrast 4.5 mm thick angled axial sections acquired from the foramen magnum to the vertex, with c oronal reformats. COMPARISON: [facility], CT, CT ANGIO BRAIN AND NECK, 05/15/2017, 18:04. FINDINGS: Image quality: Excellent. CSF spaces: Basal cisterns are patent. No extra-axial fluid collections. Ventricles are normal in size and shape. Brain: No midline shift. No intracranial masses or hemorrhage. Left medial temporal lobe subacute i nfarction. 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 Skull and face: Calvarium and visualized facial bones are intact, without suspicious lesions. Sinuses: Visualized sinuses and mastoids are clear. IMPRESSION: 1. No CT evidence of acute pathology. 2. Subcutaneous left medial temporal lobe infarction. 3. Left frontal temporal lobe encephalomalacia. Dictated by: Pepe Chung M.D. on 05/16/2017 at 17:39 Approved by: Pepe Chung M.D. on 05/16/2017 at 17:44
--- NOTE | 2017-05-16 18:29 | PCM.PNMED ---
Subjective Date of Service May 16, 2017 Subjective Overnight the patient was admitted to the ICU from the ED. Mr. Solano expresses that he is annoyed at being asked the same questions in regards to the NIHSS scoring but otherwise has no complaints. He indicates that he is willing to be more compliant with his medications going forward. He denies chest pain, nausea/vomiting, headache, vision or hearing changes, new focal deficits. Exam Vital Signs Vital Sign - Last Date Time Temp Pulse Resp B/P Pulse Ox O2 Delivery O2 Flow Rate FiO2 05/16/17 16:00 36.0 92 15 138/94 97 Nasal Cannula 5.00 Intake and Output 05/15/17 05/15/17 05/16/17 Cumulative From/Thru 15:00 23:00 07:00 05/15/17 17:06 - 05/16/17 06:03 Intake Total 60 ml 1125 ml 1185 ml Output Total 200 ml 200 ml Balance 60 ml 925 ml 985 ml Intake IV Total 60 ml 1125 ml 1185 ml Output Urine Total 200 ml 200 ml Exam General: Elderly male in no acute distress with noted expressive aphasia HEENT: NCAT. He continues to follow instruction poorly but seemed to track normally. Neck: Supple, no JVD or thyromegaly CV: Irregularly irregular rhythm, tachycardic. Normal S1/S2, no murmur/rubs/ gallop Pulm: Coarse breath sounds at the bases bilaterally but no overt wheezes/rales/ rhonchi. No accessory muscle use. Abd: Soft, nontender, nondistended. Normal bowel sounds, no guarding or rebound. MSK: Strength decreased as noted on his right side; examination later in day had him regain some strength and functionality in his RUE/RLE Neuro: CN are difficult to evalute due to patient being uncooperative during the majority of the exam. Psych: Agitated mood IVs and Medications Medications Reviewed: Medications were reviewed in detail Lab and Diagnostics Result Diagram: 05/16/1753405/16/17534 X-Rays, CTs and MRIs Brain CT 05/16 IMPRESSION: 1. No CT evidence of acute pathology. 2. Subcutaneous left medial temporal lobe infarction. 3. Left frontal temporal lobe encephalomalacia. Dictated by: Pepe Chung M.D. on 05/16/2017 at 17:39 Approved by: Pepe Chung M.D. on 05/16/2017 at 17:44 Brain MRI 05/16 IMPRESSION: 1. Subacute left medial temporal lobe hemorrhagic infarct. 2. Small subacute infarcts within the left thalamus. 3. 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 4. Volume loss and small vessel ischemic disease. 5. Findings discussed with Dr. Barrios on 05.18.17 at 13:23. Dictated by: Elena Lazar M.D. on 05/16/2017 at 13:14 Transcribed by: CHERELLE on 05/16/2017 at 13:21 Approved by: Elena Lazar M.D. on 05/16/2017 at 13:21 CT BRAIN (TPA) IMPRESSION: Old left frontal parietal ischemic infarct. No acute abnormality is seen. Specifically no blood. This study fulfills neurological imaging criteria for inclusion or exclusion of acute stroke therapies based on available published neurological guidelines. Dictated by: Elliot Felix M.D. on 05/15/2017 at 17:17 ER clinician involved with this case was notified by phone at the time of this dictation Approved by: Elliot Felix M.D. on 05/15/2017 at 17:21 CT ANGIO HEAD AND NECK IMPRESSION: 1. No prominent loss of vasculature is appreciated allowing for the old left frontal and parietal ischemic infarct. 2. 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 3. 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 Right posterior cerebral artery arises from the anterior circulation. No aneurysms. No bleeds. 4. Atherosclerotic plaque involving the internal carotid arteries but no greater stenosis than 50% is seen at any point. Dictated by: Elliot Felix M.D. on 05/15/2017 at 18:26 , Dr. Choudhury is aware of the findings. Approved by: Elliot Felix M.D. on 05/15/2017 at 18:48 Cardiac Echo Impressions Echo 05/16 Interpretation Summary The left ventricle is normal in size. There is severe concentric left ventricular hypertrophy. The ejection fraction is estimated to be 30-35%. There is no obvious LV thrombus. Compared to the prior exam, the left ventricular function is reduced. Myocardium has increased echo reflectance which is chronic seen since 2012. Differential diagnosis hypertensive heart disease or infilterative heart disease like amyloidosis in the right setting. There is no thrombus. A false chord is noted (normal variant). There is mild to moderate global hypokinesis of the left ventricle. There is inferior wall and the posterolateral wall severe hypokinesis (Unchanged). The right ventricle is mildly dilated. Right ventricular systolic function is mild to moderately reduced. There is severe biatrial enlargement. Both atria have remained unchanged in size since the prior echo exam. There is moderate mitral regurgitation. Compared to the prior echo study, there has been no change in the severity of mitral regurgitation. The aortic valve is heavily calcified. Leaflet mobility is severely reduced. Morphologically severe . The peak aortic velocity is 3.2 m/sec. The aortic valve mean gradient is 21 mmHg. The peak aortic velocity on the previous exam was 3.1 m/sec. There is mild aortic regurgitation. There is moderate to severe tricuspid regurgitation. Compared to the prior echo exam, there has been an increase in TR severity. The right ventricular systolic pressure is estimated at 38 mmHg assuming a right atrial pressure of 8 mm Hg. The ascending aorta is moderate-severely enlarged (4.8 cm in diameter. In 05/2016 it was 4.8 cm as well). 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 Acute cerebrovascular accident, present on admission. Ongoing. - Reported onset between 15:30 and 16:10 with difficulty moving RUE/RLE; patient noncompliant with warfarin therapy for his afib - At admission patient remains to have right sided deficits as well as components of both expressive and receptive aphasia - Case was discussed with [facility] neurologist who agreed the patient was a candidate for TPA, which was given at 17:56 - Patient was admitted to the CCU under post TPA protocol including regular nursing neuro checks - ECHO and MRI as above - Continue goal BP between 140-170 if possible, fluids to bump into goal range - Dr. Solomon of Neurology consulted; strongly recommends transfer to [facility] at this time - Contacted Dr. Lilly at [facility]; he did not accept transfer at this time, wanted CT scan and would reevaluate - Dr. Lilly called at ~7pm to accept transfer after discussion with Dr. Solomon Elevated troponin of unknown significance, present on admission. Improving. 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 Ongoing. 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 - Patient was reportedly seen by a specialist at the [facility] without further treatment required, with records indicating the patient was advised to avoid beta blockers - Patient uncompliant with his meds for 2+ weeks (metoprolol, spironolactone) - Echo as above - Initiation of medications after 24 hours given permissive hypertension for CVA Chronic Hyperlipidemia - Lipid panel ordered - Patient takes daily pravastatin 40 mg - Initiate statin therapy once able to swallow Chronic hypertension - Patient takes metoprolol 12.5 mg daily as well as spironolactone 25 mg daily and torsemide 5 mg daily but has been noncompliant - Initiation of medications after 24 hours given permissive hypertension for CVA Chronic aortic stenosis - Echo as above Chronic anemia - Hemoglobin of 10.5 on admission - Baseline hemoglobin appears to be closer to 12 - Monitor given recent TPA administration CODE STATUS DNR/DNI Disposition: Patient will be transferred to [facility] sometime this evening with accepting physician Dr. Emanuel Lilly. He will initiate transfer when he signs the patient out. Pain Evaluation: Adequate Pain Control GI Prophylaxis: Not indicated VTE Prophylaxis: Other (post-TPA) VTE Mechanical Devices: Intermittant Pneumatic CD Resuscitation Status: DNR/DNI:Do Not Resuscitate/Intubate Attending Statement The patient was seen and examined together with Dr. Rice on 05/16/2017 and I agree with the history, exam and plan as outlined in the note above. . Bala Rice DO May 16, 2017 18:28 Padilla Barrios MD May 17, 2017 06:39 Chronic anemia - Hemoglobin of 10.5 on admission - Baseline hemoglobin appears to be closer to 12 - Monitor given recent TPA administration DVT prophylaxis: Currently Contraindicated given recent TPA administration GI prophylaxis: Not indicated at this time CODE STATUS DNR/DNI The patient is admitted to the CCU under inpatient status given her presenting symptoms, likely diagnosis, possible complications, and required treatments expected length of stay is greater than 2 midnights. GI Prophylaxis: Not indicated VTE Prophylaxis: Other (post-TPA) VTE Mechanical Devices: Intermittant Pneumatic CD Resuscitation Status: DNR/DNI:Do Not Resuscitate/Intubate Bala Rice DO May 16, 2017 18:28 Bala Rice DO May 16, 2017 18:28
--- NOTE | 2017-05-16 23:41 | NUR ---
Transfer Note Assumed patient care @ 1900. Pt w/ expressive aphasia, unable to identify pictures and unable to answer question correctly, speech sometimes mumbled and at times clear. Left arm and left leg slightly weaker,strong on Rt side, NIHSS score 8. Tele 110-120's afib with RVR, attending MD (Dr. Sung) aware of HR trends with no new order, MAP 90-100's. Pt transferred out to [facility] via ALS ground transport, Left @ 0128. RN Report called to Álvaro MIJARES.
--- NOTE | 2017-05-20 14:45 | PCM.DC.MED ---
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 Solomon, Neurology Procedures XRay, CTs & MRIs Brain CT 05/16 IMPRESSION: 1. No CT evidence of acute pathology. 2. Subcutaneous left medial temporal lobe infarction. 3. Left frontal temporal lobe encephalomalacia. Dictated by: Pepe Chung M.D. on 05/16/2017 at 17:39 Approved by: Pepe Chung M.D. on 05/16/2017 at 17:44 Brain MRI 05/16 IMPRESSION: 1. Subacute left medial temporal lobe hemorrhagic infarct. 2. Small subacute infarcts within the left thalamus. 3. 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 4. Volume loss and small vessel ischemic disease. 5. Findings discussed with Dr. Barrios on 05.18.17 at 13:23. Dictated by: Elena Lazar M.D. on 05/16/2017 at 13:14 Transcribed by: CHERELLE on 05/16/2017 at 13:21 Approved by: Elena Lazar M.D. on 05/16/2017 at 13:21 CT BRAIN (TPA) IMPRESSION: Old left frontal parietal ischemic infarct. No acute abnormality is seen. Specifically no blood. This study fulfills neurological imaging criteria for inclusion or exclusion of acute stroke therapies based on available published neurological guidelines. Dictated by: Elliot Felix M.D. on 05/15/2017 at 17:17 ER clinician involved with this case was notified by phone at the time of this dictation Approved by: Elliot Felix M.D. on 05/15/2017 at 17:21 CT ANGIO HEAD AND NECK IMPRESSION: 1. No prominent loss of vasculature is appreciated allowing for the old left frontal and parietal ischemic infarct. 2. 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 3. 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 Right posterior cerebral artery arises from the anterior circulation. No aneurysms. No bleeds. 4. Atherosclerotic plaque involving the internal carotid arteries but no greater stenosis than 50% is seen at any point. Dictated by: Elliot Felix M.D. on 05/15/2017 at 18:26 , Dr. Choudhury is aware of the findings. Approved by: Elliot Felix M.D. on 05/15/2017 at 18:48 Cardiac Echo Impression Echo 05/16 Interpretation Summary The left ventricle is normal in size. There is severe concentric left ventricular hypertrophy. The ejection fraction is estimated to be 30-35%. There is no obvious LV thrombus. Compared to the prior exam, the left ventricular function is reduced. Myocardium has increased echo reflectance which is chronic seen since 2012. Differential diagnosis hypertensive heart disease or infilterative heart disease like amyloidosis in the right setting. There is no thrombus. A false chord is noted (normal variant). There is mild to moderate global hypokinesis of the left ventricle. There is inferior wall and the posterolateral wall severe hypokinesis (Unchanged). The right ventricle is mildly dilated. Right ventricular systolic function is mild to moderately reduced. There is severe biatrial enlargement. Both atria have remained unchanged in size since the prior echo exam. There is moderate mitral regurgitation. Compared to the prior echo study, there has been no change in the severity of mitral regurgitation. The aortic valve is heavily calcified. Leaflet mobility is severely reduced. Morphologically severe . The peak aortic velocity is 3.2 m/sec. The aortic valve mean gradient is 21 mmHg. The peak aortic velocity on the previous exam was 3.1 m/sec. There is mild aortic regurgitation. There is moderate to severe tricuspid regurgitation. Compared to the prior echo exam, there has been an increase in TR severity. The right ventricular systolic pressure is estimated at 38 mmHg assuming a right atrial pressure of 8 mm Hg. The ascending aorta is moderate-severely enlarged (4.8 cm in diameter. In 05/2016 it was 4.8 cm as well). 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 The patient in the room currently denies any issues at all which brought him to the hospital. Stating he is unsure why he is here and on comprehensive review of systems the patient denies all. Discussing with the patient's FAMILY in the room as well as the patient's girlfriend Loly over the phone, the patient was last seen playing cards with family and friends at 3:30 without any issue. Loly states over the last several days the patient has not been complaining of any issues. At 4:15 when his girlfriend Loly arrived to cook house laborer the patient wanted to go pick his car up from the automatic line set up mechanic however he could not move his right arm to grab the walker. Loly states that the patient was not acting odd other than the difficulty moving his right arm. Loly states that [place] speech was not notably worse than at baseline, as he has expressive aphasia since a CVA in 2012. Family reports that since the patient was discharged from [facility] several months ago after a right hip partial arthroplasty revision after ORIF for a femur neck fracture that he has been likely noncompliant with his home medications. The patient has atrial fibrillation however his reportedly stated that he will only take half his normal dose of warfarin. The patient is independent at baseline. Hospital Course Ivan Solano is an 87-year-old man with past medical history remarkable for 2 independent CVAs and 2012 with resultant expressive aphasia as well as atrial fibrillation noncompliant on warfarin therapy who presented with right sided upper and lower extremity weakness. Acute cerebrovascular accident, present on admission. Ongoing. - Reported onset between 15:30 and 16:10 with difficulty moving RUE/RLE; patient noncompliant with warfarin therapy for his afib - At admission patient remains to have right sided deficits as well as components of both expressive and receptive aphasia - Case was discussed with [facility] neurologist who agreed the patient was a candidate for TPA, which was given at 17:56 - Patient was admitted to the CCU under post TPA protocol including regular nursing neuro checks - ECHO and MRI as above - Continue goal BP between 140-170 if possible, fluids to bump into goal range - Dr. Solomon of Neurology consulted; strongly recommends transfer to [facility] at this time - Contacted Dr. Lilly at [facility]; he did not accept transfer at this time, wanted CT scan and would reevaluate - Dr. Lilly called at ~7pm to accept transfer after discussion with Dr. Solomon Elevated troponin of unknown significance, present on admission. Improving. 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 Ongoing. 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 - Patient was reportedly seen by a specialist at the [facility] without further treatment required, with records indicating the patient was advised to avoid beta blockers - Patient uncompliant with his meds for 2+ weeks (metoprolol, spironolactone) - Echo as above - Initiation of medications after 24 hours given permissive hypertension for CVA Chronic Hyperlipidemia - Lipid panel ordered - Patient takes daily pravastatin 40 mg - Initiate statin therapy once able to swallow Chronic hypertension - Patient takes metoprolol 12.5 mg daily as well as spironolactone 25 mg daily and torsemide 5 mg daily but has been noncompliant - Initiation of medications after 24 hours given permissive hypertension for CVA Chronic aortic stenosis - Echo as above Chronic anemia - Hemoglobin of 10.5 on admission - Baseline hemoglobin appears to be closer to 12 - Monitor given recent TPA administration CODE STATUS DNR/DNI Disposition: Patient will be transferred to [facility] sometime this evening with accepting physician Dr. Emanuel Lilly. He will initiate transfer when he signs the patient out. Exam Vital Signs (Last) Date Time Temp Pulse Resp B/P Pulse Ox O2 Delivery O2 Flow Rate FiO2 05/16/17 22:52 36.6 98 16 123/100 100 Nasal Cannula 5.00 Exam General: Elderly male in no acute distress with noted expressive aphasia HEENT: NCAT. He continues to follow instruction poorly but seemed to track normally. Neck: Supple, no JVD or thyromegaly CV: Irregularly irregular rhythm, tachycardic. Normal S1/S2, no murmur/rubs/ gallop Pulm: Coarse breath sounds at the bases bilaterally but no overt wheezes/rales/ rhonchi. No accessory muscle use. Abd: Soft, nontender, nondistended. Normal bowel sounds, no guarding or rebound. MSK: Strength decreased as noted on his right side; examination later in day had him regain some strength and functionality in his RUE/RLE Neuro: CN are difficult to evalute due to patient being uncooperative during the majority of the exam. Psych: Agitated mood Test 05/15/17 17:10 05/15/17 20:04 05/16/17 05:35 05/16/17 20:31 Prothrombin Time 14.7sec (8.1-12.5) Prothromb Time International Ratio 1.37ratio Activated Partial Thromboplast Time 29.2sec (22.8-33.0) Urine Color Yellow (YELLOW) Urine Appearance Clear (CLEAR,HAZY) Urine pH 5.0 (5.0-8.0) Urine Specific [place] 1.020 (1.003-1.035) Urine Protein 30mg/dL (NEG,TRACE) Urine Glucose (UA) Negativemg/dL (NEGATIVE) Urine Ketones Negativemg/dL (NEGATIVE) Urine Occult Blood Negative (NEGATIVE) Urine Nitrite Negative (NEGATIVE) Urine Bilirubin Negative (NEGATIVE) Urine Urobilinogen 2.0mg/dL (NORMAL) Urine Leukocyte Esterase Negative (NEGATIVE) Urine RBC 0-2/hpf (0-2) Urine WBC 0-5/hpf (0-5) Urine Epithelial Cells Few/hpf (NONE-MOD) Urine Crystals None seen (NONE SEEN) Urine Bacteria Few/hpf (NONE-FEW) Urine Hyaline Casts None/lpf (NONE) Urine Granular Casts None seen (NONE SEEN) Urine Waxy Casts None seen (NONE SEEN) Urine Red Blood Cell Casts None seen (NONE SEEN) Urine White Blood Cell Casts None seen (NONE SEEN) Urine Mucus None seen (None Seen) Urine Trichomonas None seen (NONE SEEN) Urine Yeast None (NONE SEEN) Urinalysis Comment None Urine Culture Reflexed Not indicated White Blood Count 7.6th/mm3 (3.8-10.1) Red Blood Count 3.92mil/mm3 (4.40-5.80) Hemoglobin 10.4g/dL (13.8-17.2) Hematocrit 34.5% (41.0-50.0) Mean Corpuscular Volume 88.0fL (81-100) Mean Corpuscular Hemoglobin 26.5pg (27.0-35.0) Mean Corpuscular Hemoglobin Concent 30.1% (32.0-37.0) Red Cell Distribution Width 15.7% (12.3-15.4) Platelet Count 252bil/L (150-400) Neutrophils (%) (Auto) 76.5% (40-74) Lymphocytes (%) (Auto) 10.8% (14-46) Monocytes (%) (Auto) 9.7% (4-12) Eosinophils (%) (Auto) 1.8% (0-5) Basophils (%) (Auto) 1.1% (0-3) Sodium Level 141mEq/L (134-144) Potassium Level 4.3mEq/L (3.5-5.2) Chloride Level 105mEq/L (97-108) Carbon Dioxide Level 20mmol/L (18-29) Blood Urea Nitrogen 18mg/dL (8-27) Creatinine 0.94mg/dL (0.76-1.27) Estimat Glomerular Filtration Rate 81mL/min (>59) Glucose Level 124mg/dL (60-99) Calcium Level 8.4mg/dL (8.5-10.1) Phosphorus Level 3.8mg/dL (2.5-4.9) Magnesium Level 2.0mg/dL (1.6-2.6) Total Bilirubin 1.4mg/dL (0.0-1.2) Aspartate Amino Transf (AST/SGOT) 38U/L (0-50) Alanine Aminotransferase (ALT/SGPT) 22U/L (0-44) Alkaline Phosphatase 165U/L (25-160) Total Protein 6.8g/dL (6.4-8.4) Albumin 3.1g/dL (3.4-5.0) Triglycerides Level 54mg/dL (0-149) Cholesterol Level 142mg/dL (100-199) LDL Cholesterol, Calculated 87.200mg/dL (0-99) VLDL Cholesterol 10.800mg/dL HDL Cholesterol 44mg/dL (>39) Cholesterol/HDL Ratio 3.23 (0.0-4.4) Lipase 17U/L (13-60) Thyroid Stimulating Hormone (TSH) 1.250uIU/mL (0.450-4.500) Troponin T 0.114ug/L (0.0-0.011) Discharge Medications Discharge Medications Lisinopril (Lisinopril) 2.5 Mg Tablet 2.5 MG PO DAILY (Reported) Metoprolol Tartrate (Metoprolol Tartrate) 25 Mg Tablet 25 MG PO DAILY (Reported ) Pravastatin (Pravastatin) 40 Mg Tablet 40 MG PO DAILY (Reported) Spironolactone (Spironolactone) 25 Mg Tablet 25 MG PO DAILY (Reported) Torsemide (Torsemide) 10 Mg Tablet 5 MG PO DAILY (Reported) Warfarin Sodium (Warfarin Sodium) 4 Mg Tablet 4 MG PO Q2DAY (Reported) alternates with 3mg q2d Warfarin Sodium (Warfarin Sodium) 3 Mg Tablet 3 MG PO Q2DAY (Reported) alternates with 4mg q2d As needed Docusate Sodium (Colace) 100 Mg Capsule 100 MG PO BID PRN PRN For Constipation Prescribed by: NOHEMY BARRERA PA-C Nitroglycerin SL (Nitroglycerin SL) 0.4 Mg Tab.subl 0.4 MG SL PRN For Chest Pain (Reported) oxyCODONE-Acetaminophen 5-325 mg (oxyCODONE-Acetaminophen 5-325 mg) 1 Each Tablet 1 TAB PO Q4-6H PRN PRN For Pain Prescribed by: NOHEMY BARRERA PA-C Followup Plan Follow-up plan The patient was transferred to [facility] with accepting physician Dr. Erik Lilly for further evaluation and treatment. He and his family were updated on his condition and agreed with the need to transfer him to a higher level of care. Discharge Diet: Heart Healthy Time spent Greater than 30 minutes was spent in preparation of discharge with greater than 50% of that time dedicated to patient counseling and coordination of care. . Attending Statement The patient was seen and examined together with Dr. Rice on 05/16/2017 and I agree with the history, exam and plan as outlined in the note above. . copies to: Phill Knutson MD, Jeffery S DO May 20, 2017 14:45 Padilla Barrios MD May 21, 2017 09:42
== END 2017-05-16 23:20 | disposition short-term general hospital (02) | DRG 62 ==
LOC: EDBD 16:54 → EDUNIT# 16:54 → SED 16:54 → CCU 19:55
PROVIDERS: ADMIT Hospitalist; ATTEND Internal Medicine
DX: I63.412 Cerebral infarction due to embolism of left middle cerebral artery (principal); I48.92 Unspecified atrial flutter; E85.4 Organ-limited amyloidosis; I43 Cardiomyopathy in diseases classified elsewhere; I24.8 Other forms of acute ischemic heart disease; I69.951 Hemiplegia and hemiparesis following unspecified cerebrovascular disease affecting right dominant side; I69.920 Aphasia following unspecified cerebrovascular disease; R29.713 NIHSS score 13; I10 Essential (primary) hypertension; Z79.01 Long term (current) use of anticoagulants; R29.810 Facial weakness; R79.1 Abnormal coagulation profile; Z91.19 Patient's noncompliance with other medical treatment and regimen; I48.2 Chronic atrial fibrillation; E78.5 Hyperlipidemia, unspecified; I35.0 Nonrheumatic aortic (valve) stenosis; D64.9 Anemia, unspecified; Z66 Do not resuscitate; R74.8 Abnormal levels of other serum enzymes; R40.2142 Coma scale, eyes open, spontaneous, at arrival to emergency department; R40.2252 Coma scale, best verbal response, oriented, at arrival to emergency department; R40.2362 Coma scale, best motor response, obeys commands, at arrival to emergency department; R40.2412 Glasgow coma scale score 13-15, at arrival to emergency department

== ENCOUNTER 2017-06-06 11:22 | Emergency (ER) | payer MEDICARE ==
[2017-06-06 11:24] VITALS: BP 79/57; PULSE 54; RESP 12; O2SAT 97
[2017-06-06 11:31] VITALS: BP 91/58; PULSE 70; RESP 20; O2SAT 98
--- NOTE | 2017-06-06 14:29 | ED.REPORT ---
HPI-General Illness Date of Service Jun 06, 2017 ED Provider: Claudia Mcclure MD The pt is an 87 y/o male w/ a hx of a CVA, hyperlipidemia, NM, A-fib, and CHF presenting to the ED due to increasing weakness. His daughter reports her father becoming more fatigued over time, responding occasionally w/ no and I love you, and generally seeming like he is dying. She also reports that the pt had a stroke 3 weeks ago, was sent to [facility], then [facility], and had a NM on the way there. The pt says that he is in no pain and feels like it his time to pass away. Nursing Notes Stated Complaint: ELEVATED TROP Chief Complaint: Weakness Nursing Notes Reviewed: Yes Allergies: Coded Allergies: No Known Allergies (Verified Allergy, Unknown, 06/06/17) Scheduled Lisinopril (Lisinopril) 2.5 Mg Tablet 2.5 MG PO DAILY Metoprolol Tartrate (Metoprolol Tartrate) 25 Mg Tablet 25 MG PO DAILY Pravastatin (Pravastatin) 40 Mg Tablet 40 MG PO DAILY Spironolactone (Spironolactone) 25 Mg Tablet 25 MG PO DAILY Torsemide (Torsemide) 10 Mg Tablet 5 MG PO DAILY Warfarin Sodium (Warfarin Sodium) 4 Mg Tablet 4 MG PO Q2DAY alternates with 3mg q2d Warfarin Sodium (Warfarin Sodium) 3 Mg Tablet 3 MG PO Q2DAY alternates with 4mg q2d Scheduled PRN Docusate Sodium (Colace) 100 Mg Capsule 100 MG PO BID PRN PRN For Constipation Nitroglycerin SL (Nitroglycerin SL) 0.4 Mg Tab.subl 0.4 MG SL PRN For Chest Pain oxyCODONE-Acetaminophen 5-325 mg (oxyCODONE-Acetaminophen 5-325 mg) 1 Each Tablet 1 TAB PO Q4-6H PRN PRN For Pain General Time Seen by MD: 12:08 Chief Complaint Weakness Hx Obtained From: Patient, Daughter Arrived By: Walk-in Sudden in Onset?: No Recent Healthcare: Recent doctor visit, Recent hospitalization Past Medical History Past Medical History 1. 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 Received TPA and had resultant RUE paresis which improved. 2. 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 Hyperlipidemia 4. Atrial fibrillation (EMR indicates h/o warfarin use) 5. RBBB and Left anterior bifascicular block 6. Congestive heart failure 7. History of aortic stenosis 8. CVA x2 9. NM Past Surgical History Left hip Replacement Surgery Reports: Appendectomy Smoking History Never Smoker Social History Alcohol Use: Denies alcohol use Drug Use: Denies drug use Other Social History: Good social support, Local resident Ambulatory Status Independent Review of Systems Full Review of Systems Constitutional: Reports: Fatigue, Weakness - generalized Musculoskeletal: Denies: Back pain, Neck pain Neurologic: Reports: Slurred speech Complete sys rev & neg: except as marked. Physical Exam Vital Signs Vital Signs Date Time Temp Pulse Resp B/P Pulse Ox O2 Delivery O2 Flow Rate FiO2 06/06/17 11:31 70 20 91/58 98 Room Air 06/06/17 11:24 36.7 54 12 79/57 97 Initial VS: Reviewed General/Constitutional: Awake, Alert The pt is able to answer yes and no questions Head / Eyes: Atraumatic, Normocephalic ENT: Airway patent, Mucous membranes moist Neck: Atraumatic, Supple, Full range of motion Respiratory / Chest: Breath sounds = bilat Deep, slow, and regular respirations Cardiovascular: Regular rhythm, Peripheral circulation NL Heart Rate / Rhythm: Positive: Bradycardia Heart Sounds / Murmur: Positive: Diastolic murmur present. (IV/), Systolic murmur present.. (V/) Hypotensive Abdomen: Atraumatic, Soft, Non-tender Upper Extremities Upper Extremity / MS: No deformity, Neurologic intact, Vascular intact Lower Extremity / Pelvis / MS: No deformity, Neurologic intact, Vascular intact Skin: No rash, Warm, Dry, Intact No skin breakdown Re-Eval/Medical Decision Med Decision/Clinical Course Multiple family discussions, compresses, 3 grandsons now available. Help with home care is immediately available this afternoon. In agreement with the entire family and the patient he will be discharged to home. Understanding is that he likely will not be eating and drinking much and likely will within the next few days to weeks. Patient is in no pain and needs no additional medical intervention at this point family has plans to be at the bedside and has help with all of the nursing issues anticipated Source of Hx: Old records Counseled Regarding: Diagnosis, When/why to return to ED Discharge & Departure Primary Impression: Hypotension Hypotension type: unspecified hypotension type Qualified Code: I95.9 - Hypotension, unspecified Additional Impressions: Bradycardia Need for comfort care Disposition: Home Discharge Condition All VS Reviewed: Yes Condition: Stable Additional Instructions: I wish you the best in these next steps life. I think you are making an excellent decision. You are blessed to have a family who is available for you. I hope you are able to laugh and love and enjoy these next days. I will be thinking about you. My Best Claudia Mcclure MD Referrals: Phill Knutson MD (PCP) Crit Care Except Billable Proc Critical Care Notes: 52 minutes of palliative care consult done today. Goals of care, reviewing chart, discussing anticipated medical course with patient and family. All questions answered. Scribe Attestation Portions of this note were transcribed by Felton Shah. I, Dr. Mcclure personally performed the history, physical exam and medical decision-making; I reviewed and confirmed the accuracy of the information in the transcribed note. copies to: Phill Knutson MD, Shawna L MD Jun 06, 2017 14:29 Felton Shah Jun 06, 2017 14:42
== END 2017-06-06 16:28 | disposition home or self-care (01) ==
LOC: EDBD 11:22 → SED 11:22 → EDUNIT# 11:22 → SED 16:28
DX: I95.9 Hypotension, unspecified (principal); R00.1 Bradycardia, unspecified; Z51.5 Encounter for palliative care; E78.5 Hyperlipidemia, unspecified; I25.2 Old myocardial infarction; I48.91 Unspecified atrial fibrillation; I50.9 Heart failure, unspecified; Z86.73 Personal history of transient ischemic attack (TIA), and cerebral infarction without residual deficits; Z79.01 Long term (current) use of anticoagulants; Z79.82 Long term (current) use of aspirin; Z88.5 Allergy status to narcotic agent